=== PATIENT | female | born 1980 | race Caucasian/White ===

== ENCOUNTER 2016-10-07 13:37 | Inpatient (IN) | payer OTHER ==
[~2016-10-07] VITALS: Ht 160 cm; Wt 100.9 kg
[~2016-10-07 13:37] MED LIST: /AMLO25TA PO; /DULO30CA OR; /HCTZ25TA PO; /HYDR1TAB PO; /OXCA30TA OR; ABIL10TA OR; ABIL15TA PO; ATARAX OR; BACT800T OR; DEPA500T OR; EFFE150C OR; EFFE75CA75 PO; HYDR10EL PO; KLON0.5T OR; KLON0.5T PO; KLON1TAB OR; LAMI25TA PO; LOPR50TA PO; PROZ20CA11 PO; REME15TA OR; RISP1TAB41 PO; RISP2TAB30 PO; SERO200T OR; TRAZ100T2 PO; TRIA2TA PO; VENL75TA2 PO; VIST25CA PO; ZOLO100T OR; saphris SL
[2016-10-07] MEDS ORDERED: NICOTINE 21MG/24HR 1 EA TRANSDERMAL As Ordered ONE (14:31)
[2016-10-07] MEDS ORDERED: LORazepam 1 MG TAB As Ordered ONE ×2 (14:41→19:25)
[2016-10-08] MEDS ORDERED: VENL150C43 PO (14:25)
--- NOTE | 2016-10-08 15:15 | EDDOCDS ---
Physician Documentation [facility] Name: Kiersten Reyes Age: 36 yrs Sex: Female : 1980 Arrival Date: 10/07/2016 Time: 13:37 Bed [facility] MD: Disposition: 10/08/16 12:35 Hospitalization ordered by Danny Tom for Inpatient Admission. Preliminary diagnosis is Major depressive disorder, recurrent. - Bed requested for M PSY. - Status is Inpatient Admission. pjf - Condition is Stable. Historical: - Allergies: no known allergies; - Home Meds: 1. venlafaxine 150 mg oral tr24 1 tab once daily XR 2. prazosin 5 mg Oral cap 1 cap nightly has not filled since may. pt states did not take every day - PMHx: PTSD; dissociative disorder; Depression; Anxiety; - PSHx: Tubal ligation; Cesearean Section; - Social history: Smoking status: Patient uses tobacco products, current every day smoker. Patient uses street drugs, marijuana, No barriers to communication noted, The patient speaks fluent [place], Speaks appropriately for age. - Family history: Not pertinent. - : The pt / caregiver states he / she is not on anticoagulants. Home medication list is obtained from the patient. - Exposure Risk Screening:: None identified. 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 3 in. (160.02 cm) (R); 14:24 Pulse Ox 97% on R/A; srm 19:34 BP 164 / 84; Pulse 74; Resp 18; Temp 97.4; Pulse Ox 96% ; Pain 0/10; ajs 10/08 05:38 BP 129 / 79; Pulse 77; Resp 18; Temp 97.8; Pulse Ox 96% on R/A; Pain 0/10; slm 14:24 BP 158 / 95; Pulse 79; Temp 97.7(O); Pulse Ox 100% on R/A; pjf 10/07 13:52 Body Mass Index 33.13 (84.82 kg, 160.02 cm) jrd MDM: 10/07 14:22 Pulse ox spot check ordered. br1 14:22 Nicotine Patch 21 mg/24 hr 1 applic Transdermal once ordered. br1 14:31 ETOH Ordered. EDMS 14:32 Consult PFS/PSA/Produce Department Manager ordered. br1 14:32 Consult PFS/PSA/Produce Department Manager: Patient's case requires discussion with on-call br1 Psychiatrist ordered. 14:32 PSA/PFS to call Nursing French Folder, to enter patient data on [place] Safe [place] if patient br1 involuntarily admitted or transferred for SI or HI ordered. 14:32 Confirm accurate psychiatric medication list and times of last dosage ordered. br1 14:32 Detain Pt Until Medically/PFS Cleared ordered. br1 14:34 PSA/PFS to call Nursing French Folder, to enter patient data [place] Safe [place] if patient dsf involuntarily admitted or transferred for SI or HI complete. 14:34 Consult PFS/PSA/Produce Department Manager: Patient's case requires discussion with on-call dsf Psychiatrist complete. 14:34 Consult PFS/PSA/Produce Department Manager complete. dsf 14:40 LORazepam 1 mg PO once; prn anxiety ordered. br1 15:18 ETOH Reviewed. br1 15:19 Consult PFS/PSA/Socail Worker: Cleared medically for eval ordered. br1 15:19 Financial registration complete. gjb 15:25 [facility] Payment Agreement was scanned into [employer]ust[employer] and attached to record. gjb 15:40 Consult PFS/PSA/Socail Worker: Cleared medically for eval complete. ml4 16:25 REGULAR DIET PLASTIC WAGNER+DIET ordered. EDMS 17:19 REGULAR DIET ROOM SERVICE ED+DIET ordered. EDMS 17:56 [facility] Legal paperwork was scanned into [employer] and attached to record. ml4 19:21 LORazepam 1 mg PO once; prn anxiety ordered. br1 10/08 04:25 REGULAR DIET PLASTIC WAGNER+DIET ordered. EDMS 11:09 REGULAR DIET PLASTIC WAGNER+DIET ordered. EDMS 14:18 Ad[facility]: ordered. EDMS 14:20 [facility] Legal paperwork was scanned into [employer] and attached to record. ml4 Administered Medications: 10/07 14:36 Drug: Nicotine 1 applic [nicotine 21 mg/24 hr daily transdermal patch (1 patches)] dsf Route: Transdermal; Site: left upper arm; 14:47 Drug: LORazepam 1 mg [lorazepam 1 mg tablet (1 tabs)] Route: PO; dsf 15:47 Follow up: Response: Anxiety is improved dsf 19:27 Drug: LORazepam 1 mg [lorazepam 1 mg tablet (1 tabs)] Route: PO; ka4 Signatures: Dispatcher [employer] EDMS PareshZeeshan medina, Security Aide [employer] Adeline Vilchis, PSA PSA ml4 Emile Castañeda MD MD br1 Alekasndra HookerRN RN dsf Candi Gibbons RN RN [email or web address] Bridgette Preciado Kodie LPN ka4 The chart was reviewed and I authenticate all verbal orders and agree with the evaluation and treatment provided.Attachments: 15:25 [facility] Payment Agreement rich [place]
--- NOTE | 2016-10-08 15:15 | EDDOCDS ---
Nurse's Notes [facility] Name: Kiersten Reyes Age: 36 yrs Sex: Female : 1980 Arrival Date: 10/07/2016 Time: 13:37 Bed [facility] MD: Diagnosis: Major depressive disorder, recurrent Presentation: 10/07 13:53 Presenting complaint: Patient states: sent from [facility] for evaluation. Pt dsf states before Xmas she took a bottle of prazosin to kill herself before Xmas. pt states her TLC worker told her to go to the hospital. Pt states she does have SI with a plan to overdose. Pt does have a HX of suicide attempts in the past last admission to Mental Health was 2 years ago. Pt denies HI. Mental Health Triage Level: Level 2: The patient displays active suicidal ideations. Suicide/Homicide risk assessment- The patient admits to and/or has been reported to be having suicidal ideations. The patient reports that he/she has not been admitted to an inpatient mental health facility in the last 30 days. The patient reports that he/she does not have a recent or current history of substance abuse. The patient reports that he/she has a prior history of suicide attempt and/or organized plan. The patient reports that he/she has not experienced a significant life altering event in the last 30 days. The patient reports that he/she has adequate social support. The patient reports he/she has no significant chronic medical condition(s). Status: Patient is not a service cashier or dependent. Transition of care: patient was received from [facility]. 13:53 Acuity: TIMMY Level 3 dsf 13:53 Method Of Arrival: Ambulance dsf 18:10 Adult Sepsis Screening: The patient does not have new or worsening altered mentation. dsf Patient's respiratory rate is less than 22. Systolic blood pressure is greater than 100. Patient has a qSOFA score of 0- Negative Sepsis Screen. Triage Assessment: 13:59 General: Appears in no apparent distress, comfortable, Behavior is appropriate for age, dsf cooperative. Pain: Denies pain. HIV screening NA for this visit Offered previously. The patient is triaged at the bedside. See Assessment in Nurses Notes section of ED record. Neurological: Level of Consciousness is awake, alert. Cardiovascular: Capillary refill < 3 seconds. Respiratory: Airway is patent Respiratory effort is even, unlabored, Respiratory pattern is regular, symmetrical. Derm: Skin is pink, warm & dry. SERVICE DESK LEAD: 13:59 LMP 09/29/2016 dsf Historical: - Allergies: no known allergies; - Home Meds: 1. venlafaxine 150 mg oral tr24 1 tab once daily XR 2. prazosin 5 mg Oral cap 1 cap nightly has not filled since may. pt states did not take every day - PMHx: PTSD; dissociative disorder; Depression; Anxiety; - PSHx: Tubal ligation; Cesearean Section; - Social history: Smoking status: Patient uses tobacco products, current every day smoker. Patient uses street drugs, marijuana, No barriers to communication noted, The patient speaks fluent Portuguese, Speaks appropriately for age. - Family history: Not pertinent. - : The pt / caregiver states he / she is not on anticoagulants. Home medication list is obtained from the patient. - Exposure Risk Screening:: None identified. Screenin:09 Screening information is obtained from the patient. Fall risk: No risks identified. dsf Assistance ADL's: requires no assistance with activities of daily living. Abuse/DV Screen: The patient / caregiver reports he/she is: not in a situation that causes fear, pain or injury. Nutritional screening: No deficits noted. Advance Directives: Currently, there is no health care proxy. home support is adequate. Assessment: 14:00 General: see triage assessment . dsf 14:35 General: PFS Harrison in talking with patient . dsf 14:47 General: pt anxious and upset that there is no bed. Pt states she was told by [facility] that dsf she was promised a bed. . 15:19 General: Appears in no apparent distress, comfortable, watching TV . Pain: Denies pain. dsf Neurological: Level of Consciousness is awake, alert. Cardiovascular: Capillary refill < 3 seconds. Respiratory: Airway is patent Respiratory effort is even, unlabored, Respiratory pattern is regular, symmetrical. 16:19 Adult Sepsis Screening: The patient does not have new or worsening altered mentation. dsf Patient's respiratory rate is less than 22. Systolic blood pressure is greater than 100. Patient has a qSOFA score of 0- Negative Sepsis Screen. General: Appears in no apparent distress, comfortable, Behavior is appropriate for age, cooperative. Pain: Denies pain. Neurological: Level of Consciousness is awake, alert. Cardiovascular: Capillary refill < 3 seconds. Respiratory: Airway is patent Respiratory effort is even, unlabored, Respiratory pattern is regular, symmetrical. Derm: Skin is pink, warm & dry. old healing superficial cuts to bilateral forearms. 17:18 General: Appears in no apparent distress, comfortable, Behavior is appropriate for age, dsf cooperative. Neurological: Level of Consciousness is awake, alert. Cardiovascular: Capillary refill < 3 seconds. Respiratory: Airway is patent Respiratory effort is even, unlabored, Respiratory pattern is regular, symmetrical. Derm: Skin is pink, warm & dry. old healing superficial cuts to bilateral forearm. 18:05 Adult Sepsis Screening: The patient does not have new or worsening altered mentation. dsf Patient's respiratory rate is less than 22. Systolic blood pressure is greater than 100. Patient has a qSOFA score of 0- Negative Sepsis Screen. General: Appears in no apparent distress, Behavior is appropriate for age, cooperative. Pain: Denies pain. Neurological: Level of Consciousness is awake, alert. Cardiovascular: Capillary refill < 3 seconds. Respiratory: Airway is patent Respiratory effort is even, unlabored, Respiratory pattern is regular, symmetrical. Derm: Skin is pink, warm & dry. old healing superficial cuts to bilateral forearms. 19:08 General: Appears in no apparent distress, comfortable, Behavior is appropriate for age, ka4 cooperative, quiet. General: patient supine on stretcher. sitter observing . Respiratory: Airway is patent Respiratory effort is even, unlabored, Respiratory pattern is regular, symmetrical. 19:10 Adult Sepsis Screening: The patient does not have new or worsening altered mentation. dsf Patient's respiratory rate is less than 22. Systolic blood pressure is greater than 100. Patient has a qSOFA score of 0- Negative Sepsis Screen. General: Appears in no apparent distress, Behavior is appropriate for age, cooperative. Pain: Denies pain. Neurological: Level of Consciousness is awake, alert. Cardiovascular: Capillary refill < 3 seconds. Respiratory: Airway is patent Respiratory effort is even, unlabored, Respiratory pattern is regular, symmetrical. Derm: Skin is pink, warm & dry. 20:24 General: Appears in no apparent distress, comfortable, Behavior is cooperative. slm General: resting on stretcher security observing . Respiratory: Airway is patent Respiratory effort is even, unlabored. 21:15 General: Appears in no apparent distress, comfortable, Behavior is cooperative. slm General: resting on stretcher security observing . Respiratory: Airway is patent Respiratory effort is even, unlabored. 22:00 General: Appears in no apparent distress, comfortable, Behavior is anxious. General: pt slm requesting meds for sleep security observing . Respiratory: Airway is patent Respiratory effort is even, unlabored, Respiratory pattern is regular. 23:04 General: Appears in no apparent distress, Behavior is cooperative, quiet. General: pt slm resting on stretcher watching a movie security observing safety maintained . Respiratory: Airway is patent Respiratory effort is even, unlabored. 10/08 00:28 General: Appears in no apparent distress, comfortable, Behavior is quiet. General: pt slm resting on stretcher watching a movie at this time security observing . Respiratory: Airway is patent Respiratory effort is even, unlabored, Respiratory pattern is regular. 01:41 General: Appears in no apparent distress, comfortable, Behavior is cooperative. slm General: laying on stretcher watching a movie security observing . Respiratory: No deficits noted. 02:19 General: Appears in no apparent distress, comfortable, Behavior is appropriate for age, slm quiet. General: resting on stretcher security observing . Respiratory: Airway is patent Respiratory effort is even, unlabored. 02:54 General: Appears in no apparent distress, Pt asleep at rounds, no apparent distress, sls1 security observing, will continue to monitor.. Respiratory: Airway is patent Respiratory effort is even, unlabored, Respiratory pattern is regular, symmetrical. 03:53 General: Appears in no apparent distress, comfortable, to be sleeping. Behavior is slm quiet. General: security observing. Respiratory: Airway is patent Respiratory effort is even, unlabored. Derm: Skin is pink, warm & dry. 05:05 General: Appears in no apparent distress, comfortable, to be sleeping. Behavior is slm quiet. General: security observing . Respiratory: Airway is patent Respiratory effort is even, unlabored. 05:37 General: Appears in no apparent distress, comfortable, Behavior is appropriate for age, slm cooperative. General: resting on stretcher denies needs security observing . Pain: Denies pain. Neurological: Level of Consciousness is awake, alert, obeys commands. Respiratory: No deficits noted. Derm: Skin is pink, warm & dry. 06:18 General: Appears in no apparent distress, comfortable, Behavior is cooperative. slm General: resting on stretcher security observing . Respiratory: Airway is patent Respiratory effort is even, unlabored, Respiratory pattern is regular. 07:13 General: Appears in no apparent distress, comfortable, Behavior is appropriate for age, slm cooperative. General: security observing breakfast tray provided . Respiratory: Airway is patent Respiratory effort is even, unlabored. 08:45 General: Appears in no apparent distress, comfortable, Behavior is cooperative. mk4 Neurological: Level of Consciousness is awake, alert. 10:18 General: Appears in no apparent distress, comfortable, Behavior is cooperative, reading mk4 magazine in room shower offered. 11:38 General: Appears in no apparent distress, comfortable, Behavior is cooperative, reading mk4 magazine in room pleasant denies needs. 12:48 General: Appears in no apparent distress, comfortable, Behavior is cooperative, mk4 awaiting bed placement. 13:48 General: Appears in no apparent distress, comfortable, Behavior is cooperative, reading mk4 magazine , lunch provided denies needs. 14:35 General: Appears in no apparent distress, watching DVD conversing pleasantly with staff.[facility] 15:09 General: Appears in no apparent distress, comfortable, transferred to [facility]. 4 Mental Health Eval: 10/07 14:46 Mental health consult is initiated at 14:30. Status: The patient is not a ml4 service cashier or dependent. [facility] Behavioral Health: The patient is not an established patient of [facility] Behavioral Health. Referral Information: Evaluation referral is generated by LCSR, transfer from [facility] ED. The patient was referred for evaluation because thoughts of suicide with plan to OD. Pt attempted suicide on Sep 24, 2016 by OD on Prazosin, along with self-mutilation behavior to both forearms with razor blade. Pt continues to express SI with plan to OD. Subjective: The patients chief complaint is pt states, "I am pissed that I'm still alive and I don't want to be on this earth any longer." Pt reports suffering from suicidal thoughts for the past 2 wks due to command AH. Admits attempting suicide on Sep 24 by OD on entire bottle of Prazosin, along with self mutilation and was distressed when she awoke. Additionally, she reports suffering from command AH and appears internally pre-occupied during interview. Pt states, "the voices are telling me to hurry up and do it really quick and I can't get them to stop talking." Pt denies any specific stressor triggering her suicidal thoughts and suicide attempt. She does have a significant mental health hx, including numerous suicide attempts. Pt continues to voice SI with plan to OD . Delusions are denied. Patient's mood is angry, anxious, depressed, irritable, Auditory Hallucinations are reported by the patient. Command hallucinations are reported by the patient. Mental Health history: post-traumatic stress disorder, self -mutilation, sleep disturbance, Mental Health Admissions: Numerous hospitalizations, last transferred to [facility]) on 11/29/15 following a suicide attempt(Self-mutilation) Current Outpatient Mental Health Services: Therapist / Agency: Shila, Behavioral Health and [facility] and [facility] . Randa Maria, Behavioral Health and Wellness in [facility] . Current living environment is Family / Home Support: lives with elizabeth and his 11 year old daughter. 11 year old was not present when pt attempted suicide by OD. Patient presents to Emergency Department with the following symptoms within the past 2 weeks: agitation, anger, anxiety, decreased appetite, depressed mood, feelings of helplessness/hopelessness, Command AH to kill self . poor concentration, Patient has mutilated themselves by cutting their right arm and left arm sleep disturbance - insomnia, suicidal ideation with plan for pills. Substance abuse: Pt denies. Mental status exam: Patients appearance is unkempt, Patient's behavior is bizarre, Speech is rapid. Affect is labile. Mood is anxious. Hallucinations are command with plan to OD . Appetite is poor. Memory is good. Energy level is normal. Content of thought is depressive. due to on-going suicidal thoughts Thought process is intact. Cognitive level is oriented to person, place, time and situation Patient's insight is poor. Judgement is poor. Rapport with interviewer is good. Suicidal Ideation present with a plan to kill self by pills. Homicidal ideation is denied. Disposition: Medically cleared for disposition by Emile Castañeda MD Psychiatric Consult is performed by phone with Dr Danny Tom The patient is to be transferred to accepting facility. [facility] Admission Criteria: The patient has had a suicide attempt in the recent past. as described above . The patient is experiencing suicidal ideation. The patient displays self-mutilative behavior. The patient requires continuous observation and/or control to protect self, others or property. The patient's care requires a multi-modal treatment plan under close supervision and coordination due to the complexity and severity of the patient's symptoms. The patient requires administration and monitoring of psychoactive medications by skilled medical providers due to the side effects of the psychoactive medications or significant dosage adjustments. Legal Status: Patient's legal status will be [facility] admission: 9.37. [place] Safe Act: [place] Safe Act is applicable to this patient. The patient poses a risk to self or other and the Nursing Handbag Finisher has been notified. He/She will enter the patient's data. DSM-V Differential Diagnosis: Major Depressive Disorder severe (F33.2) With psychotic features (F32.3). 16:06 Narrative: [facility] has beds available, however their ED is unable to accommodate due to ml4 high volume. PSA is directed to contact them later tonight if a bed is not found. 17:25 Narrative: Pt's chart faxed to [facility] for review, awaiting a reply. Confirmed ml4 receipt at [facility] [place], [facility] W) awaiting possible acceptance.... 18:07 Narrative: Pt is accepted to [facility] [place], 5 W). ml4 21:19 Narrative: Due to the dangerous weather conditions, [facility] is unable to transport at this ml4 time. oracle fusion consultant \\T\\ [facility] and is directing PSA to re-present the pt in the am with the transfer center. 10/08 09:26 Narrative:. ca 11:50 Legal Status: Patient's legal status will be Emergency admission: 39. Awaiting: ml4 transfer to [facility]. 13:52 Insurance Pre-Certification: Aminata Penny at [facility]. Pt is approved for 10/08 ml4 -10/12 with review due on 10/12/16 with Ursula([phone], [phone]). Pending Auth# [id number] was given due to being unaware if pt had a bed on [facility], however PSA left a message on Ursula's confidential voicemail. . Vital Signs: 10/07 13:52 BP 141 / 80 RA Sitting (auto/reg); Pulse 77; Resp 18; Temp 97.7(O); Weight 84.82 kg jrd (R); Height 5 ft. 3 in. (160.02 cm) (R); 14:24 Pulse Ox 97% on R/A; srm 19:34 BP 164 / 84; Pulse 74; Resp 18; Temp 97.4; Pulse Ox 96% ; Pain 0/10; ajs 01 05:38 BP 129 / 79; Pulse 77; Resp 18; Temp 97.8; Pulse Ox 96% on R/A; Pain 0/10; slm 14:24 BP 158 / 95; Pulse 79; Temp 97.7(O); Pulse Ox 100% on R/A; pjf 10/07 13:52 Body Mass Index 33.13 (84.82 kg, 160.02 cm) jrd Vitals: 10/07 13:59 Log In Time N/A - ambulance arrival. dsf ED Course: 13:39 Patient visited by Darren Melton Reg. lg 13:39 Patient moved to Waiting lg 13:40 Patient moved to I7 / mk4 13:42 Patient visited by Noé Cohen PCA. jrd 13:52 Patient visited by Noé Cohen PCA. jrd 13:57 Triage Initiated dsf 13:58 Emile Castañeda MD is Attending Physician. br1 14:01 Patient visited by Noé Cohen PCA. jrd 14:14 Patient visited by Noé Cohen PCA. jrd 14:20 Psych Safety Check: Location: Visual Assessment:. lt1 14:22 Patient visited by Emile Castañeda MD. br1 14:47 ETOH Sent. dsf 15:20 Patient visited by Aleksandra Hooker RN. dsf 15:25 [facility] Payment Agreement was scanned into [employer] and attached to record. gjb 15:58 Patient moved to OBSERVATION br1 16:52 Patient visited by Noé Cohen PCA. jrd 17:18 Patient visited by Aleksandra Hooker RN. dsf 17:56 E Legal paperwork was scanned into [employer] and attached to record. ml4 18:07 Patient visited by Aleksandra Hooker RN. dsf 18:10 Patient visited by Aleksandra Hooker RN. dsf 18:10 The patient / caregiver is instructed regarding the plan of care and ED course. dsf 18:10 No IV's were initiated during this patient's visit. No procedures done that require dsf assistance. 19:09 Patient visited by Tena Gloria LPN. ka4 19:25 Patient moved to [facility] dsf 19:31 Patient visited by Elkin Barros. mas 19:34 Patient visited by Malika Madison. ajs 19:45 Patient visited by Elkin Barros. mas 20:00 Patient visited by Elkin Barros. mas 20:15 Patient visited by Elkin Barros. mas 20:24 Heather Davila LPN is Primary Nurse. slm 20:30 Patient visited by Elkin Barros. mas 20:45 Patient visited by Elkin Barros. mas 20:59 Patient visited by Cherise Medrano, CABRERA. cln 21:00 Patient visited by Elkin Barros. mas 21:15 Patient visited by Elkin Barros. mas 21:16 Patient visited by Heather Davila LPN. slm 21:31 Patient visited by Elkin Barros. mas 21:49 Patient visited by Elkin Barros. mas 22:00 Patient visited by Elkin Barros. mas 22:15 Patient visited by Elkin Barros. mas 22:31 Patient visited by Elkin Barros. mas 22:45 Patient visited by Elkin Barros. mas 22:45 Patient visited by Heather Davila LPN. slm 23:01 Patient visited by Elkin Barros. mas 23:05 Patient visited by Heather Davila LPN. slm 23:15 Patient visited by Elkin Barros. mas 23:30 Patient visited by Elkin Barros. mas 10/08 00:05 Patient visited by Elkin Barros. mas 00:26 Patient visited by Elkin Barros. mas 00:28 Patient visited by Heather Davila LPN. slm 00:31 Patient visited by Elkin Barros. mas 00:45 Patient visited by Elkin Barros. mas 01:01 Patient visited by Elkin Barros. mas 01:16 Patient visited by Elkin Barros. mas 01:30 Patient visited by Elkin Barros. mas 01:42 Patient visited by Heather Davila LPN. slm 01:45 Patient visited by Elkin Barros. mas 02:00 Patient visited by Elkin Barros. mas 02:15 Patient visited by Elkin Barros. mas 02:30 Patient visited by Elkin Barros. mas 02:45 Patient visited by Elkin Barros. mas 02:55 Patient visited by Dafne Marmolejo RN. sls1 03:00 Patient visited by Elkin Barros. mas 03:15 Patient visited by Elkin Barros. mas 03:54 Patient visited by Heather Davila LPN. slm 04:04 Patient visited by Elkin Barros. mas 04:15 Patient visited by Heather Davila LPN. slm 04:44 Patient visited by Elkin Barros. mas 04:44 Patient visited by Elkin Barros. mas 05:01 Patient visited by Elkin Barros. mas 05:05 Patient visited by Heather Davila LPN. slm 05:15 Patient visited by Elkin Barros. mas 05:38 Patient visited by Heather Davila LPN. slm 05:39 Patient visited by Elkin Barros. mas 05:45 Patient visited by Elkin Barros. mas 06:00 Patient visited by Elkin Barros. mas 06:15 Patient visited by Elkin Barros. mas 06:19 Patient visited by Heather Davila LPN. slm 06:30 Patient visited by Elkin Barros. mas 06:45 Patient visited by Elkin Barros. mas 07:05 Patient visited by Elkin Barros. mas 07:09 Primary Nurse role handed off by Heather Davila LPN mcp 07:12 Heather Davila LPN is Primary Nurse. slm 07:13 Patient visited by Heather Davila LPN. slm 07:23 Patient visited by Zeeshan Hamm Security Aide. pjf 07:36 Patient visited by Ferendzo, Zeeshan, Security Aide. pjf 07:45 Patient visited by Zeeshan Hamm Security Aide. pjf 08:06 Patient visited by Zeeshan Hamm Security Aide. pjf 08:29 Patient visited by Zeeshan Hamm Security Aide. pjf 08:41 Patient visited by Zeeshan Hamm Security Aide. pjf 09:39 Patient visited by Zeeshan Hamm Security Aide. pjf 09:39 Patient visited by Zeeshan Hamm Security Aide. pjf 10:01 Patient visited by Zeeshan Hamm Security Aide. pjf 10:22 Patient visited by Zeeshan Hamm Security Aide. pjf 10:35 Patient visited by Zeeshan Hamm Security Aide. pjf 10:54 Patient visited by Zeeshan Hamm Security Aide. pjf 11:05 Patient visited by Zeeshan Hamm Security Aidrk. pjf 11:19 Patient visited by Zeeshan Hamm Security Aide. pjf 11:39 Patient visited by Zeeshan Hamm Security Aidrk. pjf 11:41 Patient visited by Zeeshan Hamm Security Aidrk. pjf 11:48 Patient visited by Zeeshan Hamm Security Aidrk. pjf 12:08 Patient visited by Zeeshan Hamm Security Aide. pjf 12:18 Patient visited by Zeeshan Hamm Security Aide. pjf 12:34 Patient visited by Wil Washington. rn1 12:34 Danny Tom is Hospitalizing Provider. mk4 12:45 Patient visited by Wil Washington. rn1 13:00 Patient visited by Wil Washington. rn1 13:36 Patient visited by Zeeshan Hamm Security Aide. pjf 13:50 Patient visited by Zeeshan Hamm Security Aide. pjf 14:19 Patient visited by Zeeshan Hamm Security Aide. pjf 14:20 E Legal paperwork was scanned into [employer] and attached to record. ml4 14:37 Patient visited by Zeeshan Hamm Security Aide. pjf Administered Medications: 10/07 14:36 Drug: Nicotine 1 applic [nicotine 21 mg/24 hr daily transdermal patch (1 patches)] dsf Route: Transdermal; Site: left upper arm; 14:47 Drug: LORazepam 1 mg [lorazepam 1 mg tablet (1 tabs)] Route: PO; dsf 15:47 Follow up: Response: Anxiety is improved f 19:27 Drug: LORazepam 1 mg [lorazepam 1 mg tablet (1 tabs)] Route: PO; ka4 Attachments: 10/08 14:20 MHE Legal paperwork ml4 Order Results: Lab Order: ETOH; SPEC'M 10/07/16 14:43 Test: ETHYL ALCOHOL (ETHANOL); Value: < 0.003; Range: 0.000-0.010; Units: %; Status: F Outcome: 10/07 17:47 ER care complete, transfer ordered by Provider. br1 18:08 Admission hand-off: Report called to Nati Benitez RN %w at [facility]. 18:10 No special radiology studies were completed. f 19:10 Discharge Assessment: Patient awake, alert and oriented x 3. No cognitive and/or f functional deficits noted. Patient verbalized understanding of disposition instructions. patient administered narcotics - no. 19:11 Property :Personal belongings accompany Pt. [facility] [place] 10/08 12:35 Decision to Hospitalize by Provider. mk4 12:48 The following High Risk Discharge criteria are identified: None. Admitted to Psych. 4 14:35 Condition: stable. 4 15:15 Patient left the ED. f Signatures: Lina Serna, RN RN [facility] Ursula Garcia, RN RN Tawnya Gerber, PSA PSA ca Ganty, LoriLee, Reg Reg lg Ferendzo, Zeeshan, Security Aide [facility] Adeline Vilchis, PSA PSA ml4 Emile Castañeda MD MD br1 Elkin Barros Desiree,RN RN [facility], [place] Malika Madison Shannon RN RN sls1 Heather Davila LPN LPN slm King, Margaret, RN RN Tena Sewell LPN LPN ka4 Noé Cohen, CUFF SETTER CUFF SETTER Wil [place] rn1 Bridgette Preciado Leanna lt1 Cherise Medrano, CUFF SETTER CUFF SETTER cln Corrections: (The following items were deleted from the chart) 10/07 17:27 16:29 Transition of care to Pt's chart faxed to [facility]) for ml4 review, awaiting a reply[facility] 18: 16:19 Derm: Skin is pink, warm & dry. [facility] 18:07 17:18 Derm: Skin is pink, warm & dry. dsf dsf 18:07 18:05 Derm: Skin is pink, warm & dry. [facility] 10/08 11:17 10/07 14:46 Referral Information: Evaluation referral is generated by [facility], transfer ml4 from [facility] ED. The patient was referred for evaluation because thoughts of suicide with plan to OD. Pt attempted suicide on Sep 24, 2016 by OD on Prazosin, along with self-mutilation behavior to both forearms with razor blade. Pt continues to express SI with plan to OD. [facility] 10/08 12:49 12:34 Andres Santana is Hospitalizing Provider. [place] [id number] 12:49 12:34 Hospitalizing Provider role handed off by Andres Santana [place] [address] 13:17 10/07 14:46 Mental status exam: Patients appearance is unkempt, Patient's behavior is ml4 bizarre, Speech is normal. Affect is labile. Mood is anxious. Hallucinations are command with plan to OD . Appetite is poor. Memory is good. Energy level is normal. Content of thought is grandiose. due to on-going thoughts of suicide with plan. Thought process is intact. Cognitive level is oriented to person, place, time and situation Patient's insight is poor. Judgement is poor. Rapport with interviewer is good. Suicidal Ideation present with a plan to kill self by pills. Homicidal ideation is denied. [facility] 10/08 13:23 10/07 14:46 DSM-V Differential Diagnosis: Major Depressive Disorder severe (F33.2) [place] [id number] 10/08 13:28 10/07 14:46 Mental status exam: Patients appearance is unkempt, Patient's behavior is ml4 bizarre, Speech is normal. Affect is labile. Mood is anxious. Hallucinations are command with plan to OD . Appetite is poor. Memory is good. Energy level is normal. Content of thought is depressive. due to on-going suicidal thoughts Thought process is intact. Cognitive level is oriented to person, place, time and situation Patient's insight is poor. Judgement is poor. Rapport with interviewer is good. Suicidal Ideation present with a plan to kill self by pills. Homicidal ideation is denied. ml4 MTDD
[2016-10-08 15:40] VITALS: BP 142/96
[2016-10-08] MEDS ORDERED: MOM 30ML SUSPENSION UDC PO PRN (17:45)
[2016-10-08] MEDS ORDERED: MAALOX 30 ML SUSP *UDC PO PRN (17:45)
[2016-10-08] MEDS ORDERED: NICOTINE 21MG/24HR 1 EA TRANSDERMAL TD ONE (19:00)
[2016-10-08] MEDS: risperiDONE 1 MG TAB PO SCH (20:24)
[2016-10-08] MEDS: traZODone 50 MG TAB PO PRN (20:24)
[2016-10-08] MEDS: LORazepam 1 MG TAB PO PRN (21:52)
[2016-10-09 06:27] VITALS: BP 115/66
[2016-10-09] MEDS: LORazepam 1 MG TAB PO PRN ×2 (09:09→15:56)
[2016-10-09] MEDS: risperiDONE 1 MG TAB PO SCH ×2 (09:09→13:01)
[2016-10-09] MEDS: NICOTINE 21MG/24HR 1 EA TRANSDERMAL TD SCH (09:09)
--- NOTE | 2016-10-09 11:17 | HPEPDOC ---
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 ATTENDING: Dr. oYan Sims HPI: 36yoF admitted to [facility] for MDD, being medically examined today. No acute medical complaints today. Denies any fevers, chills, weakness, fatigue, SANTANA, CP, SOB, cough, palpitations, abdominal pain, N/V/D or changes in bowel or bladder habits. PMHx: PTSD Anxiety/depression Bipolar disorder Dissociative disorder History of substance use History of alcohol use PSHX: Tubal ligation SOCHX: Resides in: [place] Marital Status: (suicide-previous ). Currently engaged. Kids: 6 children, 3 children live with family members. 3 children in [place]. Employment: Unemployed Tobacco use: One pack per day ETOH: States no alcohol for the past 2 years, previously completed rehabilitation program Illicit Drugs: History of opiates. States currently uses marijuana twice weekly. IV Drug Use: Denies Tattoos done unprofessionally: Denies FAMHX: Mother: Alive, patient states history of mental illness Father: Alive, patient states history of bipolar disorder Siblings: Alive, patient states 2 sisters history of bipolar disorder Children: 3 children Alive, well, living with other family members. Unexpected deaths due to medical reasons: None. ROS: As noted in HPI, otherwise 11pt ROS of systems reviewed and remarkable only for LMP 09/29/16. PE: GEN: 36yoF, appears stated age. Well-nourished, well developed. No acute distress. Alert and oriented x 3. Pleasant, interactive. HEENT: Normocephalic, atraumatic. Pupils are equal, round, and reactive to light. Extraocular movements are intact. No nystagmus appreciated. Sclera are nonicteric. Conjunctiva without injection. Nose midline. Nasal turbinates without bogginess. EACs both patent BL. TMs both visualized and bowers with good cone of light, no bulging or erythema. No facial asymmetry. Moist mucous membranes. Dentition fair. Pharynx pink and moist, no cobblestoning. Neck supple , trachea midline. No lymphadenopathy or thyromegaly appreciated. CHEST: Regular rate and rhythm, +S1, +S2 LUNGS: Clear to auscultation bilaterally. No wheezes, rales, or rhonchi. Breathing appears symmetric and easy. Patient is speaking in full sentences. No accessory muscle use. ABD: Round, soft, non-tender, non-distended. +Bowel sounds throughout. No rebound or guarding. No costovertebral angle tenderness. EXT: Pulses 2+ bilaterally dorsalis pedis and radial. No lower extremity edema appreciated. SKIN: [place], dry, warm. Capillary refill <2sec. No rashes. Patient has superficial lacerations on bilateral forearms. They appear to be healing and patient states they're approximately 1 week old. There are no signs of infection. No drainage. No erythema. NEURO: Alert and oriented x 3. Cranial nerves III-XII are intact. No focal deficits appreciated. EKG: [facility] NSR 78. [facility] Labs WBC 11.1 Hgb 14.6 Hct 43.6 Plt 367 Na 140 K 3.6 Cl 106 BUN 6 SCr 0.6 Gluc 99 AST 17 ALT 16 HCG neg UA neg Toxicology remarkable for THC. TSH 1.19 A&P: 36yoF admitted to [facility] for MDD 1. Psych. Plan per Psychiatry. EKG on file. 2. Nicotine dependence. Patch available. 3. Superficial lacerations forearms. Keep areas clean and dry. No signs of infection. Monitor. 4. Follow up with PCP on discharge. 5. Substance use. Per psychiatry. Vital Signs Vital Signs Label Value Date Time Patient Temperature 97.6 degrees F 10/09/16 0627 Temperature Source Tympanic 10/09/16 0627 Pulse 65 10/09/16 0627 Respiratory Rate 18 bpm 10/09/16 0627 Blood Pressure Assessment 115/66 (82) 10/09/16 0627 Laboratory Data Labs 24H Item Value Date Time Ethyl Alcohol Level < 0.003 % 10/07/16 1443 Home Medications Scheduled Venlafaxine Hydrochloride (Venlafaxine HCl ER) 150 Mg Cap 150 MG PO DAILY Allergies Coded Allergies: Bee Venom (Verified Allergy, Severe, SOB, 01/06/13) No Known Drug Allergy (Verified Allergy, Unknown, 01/06/13) Alba Flaherty Oct 09, 2016 11:17
[2016-10-09] MEDS: HALOPERIDOL 5 MG TAB PO PRN (13:02)
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
[2016-10-09 18:19] VITALS: BP 139/92
[2016-10-09] MEDS: QUEtiapine FUMARATE 50 MG TAB PO SCH (21:57)
[2016-10-09] MEDS: PALIPERIDONE 3 MG ER TAB (INVEGA) PO SCH (21:57)
[2016-10-09] MEDS: traZODone 50 MG TAB PO PRN (21:57)
[2016-10-09] MEDS: GABAPENTIN 100 MG CAP PO SCH (21:57)
[2016-10-10 06:43] VITALS: BP 118/61
[2016-10-10] MEDS: NICOTINE 21MG/24HR 1 EA TRANSDERMAL TD SCH (08:24)
[2016-10-10] MEDS ORDERED: INFLUENZA QUADRIVALENT PF VACCINE 0.5ML SYRINGE/VIAL (90686) IM ONE (09:00)
[2016-10-10] MEDS: LORazepam 1 MG TAB PO PRN ×2 (10:51→20:10)
--- NOTE | 2016-10-10 14:21 | IPN ---
DATE: 10/10/2016 TREATMENT: This is the 3rd day of inpatient admission for this patient: She is seen and her medications reviewed. She was admitted due to expressing suicidal thoughts, with reports that she ingested an overdose of prazosin tablets in order to kill herself. She also reported at the time that she was experiencing worsening depression and anxiety. The patient states that she is still very depressed, anxious, and feels she has multiple personalities. She does not think that most medications she has tried in the past have helped her in any way. She currently is receiving Invega 3 mg orally at bedtime, gabapentin 100 mg at bedtime, and quetiapine 50 mg orally at bedtime. OBSERVATION: Vital signs are stable. Blood pressure of 118/61, pulse 69, respirations 18, and temperature 97.4. She is noted to be dressed in [facility]. Her grooming is fair. No abnormal involuntary movement is noted. Her speech is soft, normal in volume, rate, and rhythm. Thought process is coherent and logical. No specific delusions are noted or ideas of reference. She describes her mood as severely depressed and anxious. Affect seems to be mood congruent. She denies homicidal ideation, however when asked about thoughts of suicide she was vague in her response and ambivalent as to whether she still plans to harm herself. She attributes part of her behavior to what she feels is multiple personalities in her. No medication related adverse events and no gross psychotic feature is evident. ASSESSMENT: The patient currently presents with features notable for histrionic and borderline personality traits. She seems to be quite impulsive, which is a notable risk in terms of engaging in self-harmful acts. PLAN: She will be continued on the current medications with ongoing reviews, with dosage adjustments as clinically indicated. She is encouraged to participate actively in therapeutic programs. CAR
--- NOTE | 2016-10-10 16:15 | EDDOCDS ---
Physician Documentation [facility] Name: Kiersten Reyes Age: 36 yrs Sex: Female : 1980 Arrival Date: 10/07/2016 Time: 13:37 Bed [facility] MD: Disposition: 10/08/16 12:35 Hospitalization ordered by Danny Tom for Inpatient Admission. Preliminary diagnosis is Major depressive disorder, recurrent. - Bed requested for M PSY. - Status is Inpatient Admission. pjf - Condition is Stable. Historical: - Allergies: no known allergies; - Home Meds: 1. venlafaxine 150 mg oral tr24 1 tab once daily XR 2. prazosin 5 mg Oral cap 1 cap nightly has not filled since may. pt states did not take every day - PMHx: PTSD; dissociative disorder; Depression; Anxiety; - PSHx: Tubal ligation; Cesearean Section; - Social history: Smoking status: Patient uses tobacco products, current every day smoker. Patient uses street drugs, marijuana, No barriers to communication noted, The patient speaks fluent Beninese, Speaks appropriately for age. - Family history: Not pertinent. - : The pt / caregiver states he / she is not on anticoagulants. Home medication list is obtained from the patient. - Exposure Risk Screening:: None identified. 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 3 in. (160.02 cm) (R); 14:24 Pulse Ox 97% on R/A; srm 19:34 BP 164 / 84; Pulse 74; Resp 18; Temp 97.4; Pulse Ox 96% ; Pain 0/10; ajs 10/08 05:38 BP 129 / 79; Pulse 77; Resp 18; Temp 97.8; Pulse Ox 96% on R/A; Pain 0/10; slm 14:24 BP 158 / 95; Pulse 79; Temp 97.7(O); Pulse Ox 100% on R/A; pjf 10/07 13:52 Body Mass Index 33.13 (84.82 kg, 160.02 cm) jrd MDM: 10/07 14:22 Pulse ox spot check ordered. br1 14:22 Nicotine Patch 21 mg/24 hr 1 applic Transdermal once ordered. br1 14:31 ETOH Ordered. EDMS 14:32 Consult PFS/PSA/Senior Clerk ordered. br1 14:32 Consult PFS/PSA/Senior Clerk: Patient's case requires discussion with on-call br1 Psychiatrist ordered. 14:32 PSA/PFS to call Nursing Gear Milling Machine Set Up Operator, to enter patient data on [place] Safe [place] if patient br1 involuntarily admitted or transferred for SI or HI ordered. 14:32 Confirm accurate psychiatric medication list and times of last dosage ordered. br1 14:32 Detain Pt Until Medically/PFS Cleared ordered. br1 14:34 PSA/PFS to call Nursing Gear Milling Machine Set Up Operator, to enter patient data on [place] if patient dsf involuntarily admitted or transferred for SI or HI complete. 14:34 Consult PFS/PSA/Senior Clerk: Patient's case requires discussion with on-call dsf Psychiatrist complete. 14:34 Consult PFS/PSA/Senior Clerk complete. dsf 14:40 LORazepam 1 mg PO once; prn anxiety ordered. br1 15:18 ETOH Reviewed. br1 15:19 Consult PFS/PSA/Socail Worker: Cleared medically for eval ordered. br1 15:19 Financial registration complete. gjb 15:25 [facility] Payment Agreement was scanned into [employer] and attached to record. gjb 15:40 Consult PFS/PSA/Socail Worker: Cleared medically for eval complete. ml4 16:25 REGULAR DIET PLASTIC WAGNER+DIET ordered. EDMS 17:19 REGULAR DIET ROOM SERVICE ED+DIET ordered. EDMS 17:56 [facility] Legal paperwork was scanned into [employer] and attached to record. ml4 19:21 LORazepam 1 mg PO once; prn anxiety ordered. br1 10/08 04:25 REGULAR DIET PLASTIC WAGNER+DIET ordered. EDMS 11:09 REGULAR DIET PLASTIC WAGNER+DIET ordered. EDMS 14:18 Admit to [facility]: ordered. EDMS 14:20 [facility] Legal paperwork was scanned into [employer] and attached to record. ml4 10/10 07:59 T-Sheet-- Draft Copy was scanned into [employer] and attached to record. gb Administered Medications: 10/07 14:36 Drug: Nicotine 1 applic [nicotine 21 mg/24 hr daily transdermal patch (1 patches)] dsf Route: Transdermal; Site: left upper arm; 14:47 Drug: LORazepam 1 mg [lorazepam 1 mg tablet (1 tabs)] Route: PO; dsf 15:47 Follow up: Response: Anxiety is improved dsf 19:27 Drug: LORazepam 1 mg [lorazepam 1 mg tablet (1 tabs)] Route: PO; ka4 Signatures: Dispatcher [employer] EDMS Katerin Guadalupe, Reg Reg gb Pareshadam, Zeeshan, Security Aide Securpjf Deng, Adeline, PSA PSA ml4 Emile Castañeda MD MD br1 Aleksandra HookerRN RN Candi Estrada RN RN [email or web address] Bridgette Preciado Kodie LPN ka4 The chart was reviewed and I authenticate all verbal orders and agree with the evaluation and treatment provided.Attachments: 15:25 [facility] Payment Agreement gjb 10/10 07:59 T-Sheet-- Draft Copy gb Chart Complete [place]
--- NOTE | 2016-10-10 16:16 | EDDOCDS ---
Physician Documentation [facility] Name: Kiersten Reyes Age: 36 yrs Sex: Female : 1980 Arrival Date: 10/07/2016 Time: 13:37 Bed [facility] MD: Disposition: 10/08/16 12:35 Hospitalization ordered by Danny Tom for Inpatient Admission. Preliminary diagnosis is Major depressive disorder, recurrent. - Bed requested for M PSY. - Status is Inpatient Admission. pjf - Condition is Stable. Historical: - Allergies: no known allergies; - Home Meds: 1. venlafaxine 150 mg oral tr24 1 tab once daily XR 2. prazosin 5 mg Oral cap 1 cap nightly has not filled since may. pt states did not take every day - PMHx: PTSD; dissociative disorder; Depression; Anxiety; - PSHx: Tubal ligation; Cesearean Section; - Social history: Smoking status: Patient uses tobacco products, current every day smoker. Patient uses street drugs, marijuana, No barriers to communication noted, The patient speaks fluent [place], Speaks appropriately for age. - Family history: Not pertinent. - : The pt / caregiver states he / she is not on anticoagulants. Home medication list is obtained from the patient. - Exposure Risk Screening:: None identified. UNDERWEAR HEMMER: 10/07 13:59 LMP 09/29/2016 dsf Vital Signs: 13:52 BP 141 / 80 RA Sitting (auto/reg); Pulse 77; Resp 18; Temp 97.7(O); Weight 84.82 kg / jrd 187 lbs (R); Height 5 ft. 3 in. (160.02 cm) (R); 14:24 Pulse Ox 97% on R/A; srm 19:34 BP 164 / 84; Pulse 74; Resp 18; Temp 97.4; Pulse Ox 96% ; Pain 0/10; ajs 10/08 05:38 BP 129 / 79; Pulse 77; Resp 18; Temp 97.8; Pulse Ox 96% on R/A; Pain 0/10; slm 14:24 BP 158 / 95; Pulse 79; Temp 97.7(O); Pulse Ox 100% on R/A; pjf 10/07 13:52 Body Mass Index 33.13 (84.82 kg, 160.02 cm) jrd MDM: 10/07 14:22 Pulse ox spot check ordered. br1 14:22 Nicotine Patch 21 mg/24 hr 1 applic Transdermal once ordered. br1 14:31 ETOH Ordered. EDMS 14:32 Consult PFS/PSA/Choir Singer ordered. br1 14:32 Consult PFS/PSA/Choir Singer: Patient's case requires discussion with on-call br1 Psychiatrist ordered. 14:32 PSA/PFS to call Nursing Manager Social Media, to enter patient data on [place] Safe [place] if patient br1 involuntarily admitted or transferred for SI or HI ordered. 14:32 Confirm accurate psychiatric medication list and times of last dosage ordered. br1 14:32 Detain Pt Until Medically/PFS Cleared ordered. br1 14:34 PSA/PFS to call Nursing Manager Social Media, to enter patient data [place] Safe [place] if patient dsf involuntarily admitted or transferred for SI or HI complete. 14:34 Consult PFS/PSA/Choir Singer: Patient's case requires discussion with on-call dsf Psychiatrist complete. 14:34 Consult PFS/PSA/Choir Singer complete. dsf 14:40 LORazepam 1 mg PO once; prn anxiety ordered. br1 15:18 ETOH Reviewed. br1 15:19 Consult PFS/PSA/Socail Worker: Cleared medically for eval ordered. br1 15:19 Financial registration complete. gjb 15:25 [facility] Payment Agreement was scanned into [employer] and attached to record. gjb 15:40 Consult PFS/PSA/Socail Worker: Cleared medically for eval complete. ml4 16:25 REGULAR DIET PLASTIC WAGNER+DIET ordered. EDMS 17:19 REGULAR DIET ROOM SERVICE ED+DIET ordered. EDMS 17:56 [facility] Legal paperwork was scanned into [employer] and attached to record. ml4 19:21 LORazepam 1 mg PO once; prn anxiety ordered. br1 10/08 04:25 REGULAR DIET PLASTIC WAGNER+DIET ordered. EDMS 11:09 REGULAR DIET PLASTIC WAGNER+DIET ordered. EDMS 14:18 Admit to [facility]: ordered. EDMS 14:20 [facility] Legal paperwork was scanned into [employer] and attached to record. ml4 10/10 07:59 T-Sheet-- Draft Copy was scanned into [employer] and attached to record. gb Administered Medications: 10/07 14:36 Drug: Nicotine 1 applic [nicotine 21 mg/24 hr daily transdermal patch (1 patches)] dsf Route: Transdermal; Site: left upper arm; 14:47 Drug: LORazepam 1 mg [lorazepam 1 mg tablet (1 tabs)] Route: PO; dsf 15:47 Follow up: Response: Anxiety is improved dsf 19:27 Drug: LORazepam 1 mg [lorazepam 1 mg tablet (1 tabs)] Route: PO; ka4 Signatures: Dispatcher [employer] EDMS Katerin Guadalupe, Reg Reg gb Pareshadam, Zeeshan, Security Aide Securpjf Deng, Adeline, PSA PSA ml4 Emile Castañeda MD MD br1 Aleksandra HookerRN RN Candi Estrada RN RN [email or web address] Bridgette Preciado Kodie LPN ka4 The chart was reviewed and I authenticate all verbal orders and agree with the evaluation and treatment provided.Attachments: 15:25 [facility] Payment Agreement gjb 10/10 07:59 T-Sheet-- Draft Copy gb Chart Complete [place]
--- NOTE | 2016-10-10 16:17 | EDDOCDS ---
Nurse's Notes [facility] Name: Kiersten Reyes Age: 36 yrs Sex: Female : 1980 Arrival Date: 10/07/2016 Time: 13:[address] [facility] MD: Diagnosis: Major depressive disorder, recurrent Presentation: 10/07 13:53 Presenting complaint: Patient states: sent from [facility] for evaluation. Pt dsf states before Xmas she took a bottle of prazosin to kill herself before Xmas. pt states her TLC worker told her to go to the hospital. Pt states she does have SI with a plan to overdose. Pt does have a HX of suicide attempts in the past last admission to Mental Health was 2 years ago. Pt denies HI. Mental Health Triage Level: Level 2: The patient displays active suicidal ideations. Suicide/Homicide risk assessment- The patient admits to and/or has been reported to be having suicidal ideations. The patient reports that he/she has not been admitted to an inpatient mental health facility in the last 30 days. The patient reports that he/she does not have a recent or current history of substance abuse. The patient reports that he/she has a prior history of suicide attempt and/or organized plan. The patient reports that he/she has not experienced a significant life altering event in the last 30 days. The patient reports that he/she has adequate social support. The patient reports he/she has no significant chronic medical condition(s). 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 Transition of care: patient was received from [facility]. 13:53 Acuity: TIMMY Level 3 dsf 13:53 Method Of Arrival: Ambulance dsf 18:10 Adult Sepsis Screening: The patient does not have new or worsening altered mentation. dsf Patient's respiratory rate is less than 22. Systolic blood pressure is greater than 100. Patient has a qSOFA score of 0- Negative Sepsis Screen. Triage Assessment: 13:59 General: Appears in no apparent distress, comfortable, Behavior is appropriate for age, dsf cooperative. Pain: Denies pain. HIV screening NA for this visit Offered previously. The patient is triaged at the bedside. See Assessment in Nurses Notes section of ED record. Neurological: Level of Consciousness is awake, alert. Cardiovascular: Capillary refill < 3 seconds. Respiratory: Airway is patent Respiratory effort is even, unlabored, Respiratory pattern is regular, symmetrical. Derm: Skin is pink, warm & dry. [employer]: 13:59 LMP 09/29/2016 dsf Historical: - Allergies: no known allergies; - Home Meds: 1. venlafaxine 150 mg oral tr24 1 tab once daily XR 2. prazosin 5 mg Oral cap 1 cap nightly has not filled since may. pt states did not take every day - PMHx: PTSD; dissociative disorder; Depression; Anxiety; - PSHx: Tubal ligation; Cesearean Section; - Social history: Smoking status: Patient uses tobacco products, current every day smoker. Patient uses street drugs, marijuana, No barriers to communication noted, The patient speaks fluent Trinidadian, Speaks appropriately for age. - Family history: Not pertinent. - : The pt / caregiver states he / she is not on anticoagulants. Home medication list is obtained from the patient. - Exposure Risk Screening:: None identified. Screenin:09 Screening information is obtained from the patient. Fall risk: No risks identified. dsf Assistance ADL's: requires no assistance with activities of daily living. Abuse/DV Screen: The patient / caregiver reports he/she is: not in a situation that causes fear, pain or injury. Nutritional screening: No deficits noted. Advance Directives: Currently, there is no health care proxy. home support is adequate. Assessment: 14:00 General: see triage assessment . dsf 14:35 General: PFS Harrison in talking with patient . dsf 14:47 General: pt anxious and upset that there is no bed. Pt states she was told by [facility] that dsf she was promised a bed. . 15:19 General: Appears in no apparent distress, comfortable, watching TV . Pain: Denies pain. dsf Neurological: Level of Consciousness is awake, alert. Cardiovascular: Capillary refill < 3 seconds. Respiratory: Airway is patent Respiratory effort is even, unlabored, Respiratory pattern is regular, symmetrical. 16:19 Adult Sepsis Screening: The patient does not have new or worsening altered mentation. dsf Patient's respiratory rate is less than 22. Systolic blood pressure is greater than 100. Patient has a qSOFA score of 0- Negative Sepsis Screen. General: Appears in no apparent distress, comfortable, Behavior is appropriate for age, cooperative. Pain: Denies pain. Neurological: Level of Consciousness is awake, alert. Cardiovascular: Capillary refill < 3 seconds. Respiratory: Airway is patent Respiratory effort is even, unlabored, Respiratory pattern is regular, symmetrical. Derm: Skin is pink, warm & dry. old healing superficial cuts to bilateral forearms. 17:18 General: Appears in no apparent distress, comfortable, Behavior is appropriate for age, dsf cooperative. Neurological: Level of Consciousness is awake, alert. Cardiovascular: Capillary refill < 3 seconds. Respiratory: Airway is patent Respiratory effort is even, unlabored, Respiratory pattern is regular, symmetrical. Derm: Skin is pink, warm & dry. old healing superficial cuts to bilateral forearm. 18:05 Adult Sepsis Screening: The patient does not have new or worsening altered mentation. dsf Patient's respiratory rate is less than 22. Systolic blood pressure is greater than 100. Patient has a qSOFA score of 0- Negative Sepsis Screen. General: Appears in no apparent distress, Behavior is appropriate for age, cooperative. Pain: Denies pain. Neurological: Level of Consciousness is awake, alert. Cardiovascular: Capillary refill < 3 seconds. Respiratory: Airway is patent Respiratory effort is even, unlabored, Respiratory pattern is regular, symmetrical. Derm: Skin is pink, warm & dry. old healing superficial cuts to bilateral forearms. 19:08 General: Appears in no apparent distress, comfortable, Behavior is appropriate for age, ka4 cooperative, quiet. General: patient supine on stretcher. sitter observing . Respiratory: Airway is patent Respiratory effort is even, unlabored, Respiratory pattern is regular, symmetrical. 19:10 Adult Sepsis Screening: The patient does not have new or worsening altered mentation. dsf Patient's respiratory rate is less than 22. Systolic blood pressure is greater than 100. Patient has a qSOFA score of 0- Negative Sepsis Screen. General: Appears in no apparent distress, Behavior is appropriate for age, cooperative. Pain: Denies pain. Neurological: Level of Consciousness is awake, alert. Cardiovascular: Capillary refill < 3 seconds. Respiratory: Airway is patent Respiratory effort is even, unlabored, Respiratory pattern is regular, symmetrical. Derm: Skin is pink, warm & dry. 20:24 General: Appears in no apparent distress, comfortable, Behavior is cooperative. slm General: resting on stretcher security observing . Respiratory: Airway is patent Respiratory effort is even, unlabored. 21:15 General: Appears in no apparent distress, comfortable, Behavior is cooperative. slm General: resting on stretcher security observing . Respiratory: Airway is patent Respiratory effort is even, unlabored. 22:00 General: Appears in no apparent distress, comfortable, Behavior is anxious. General: pt slm requesting meds for sleep security observing . Respiratory: Airway is patent Respiratory effort is even, unlabored, Respiratory pattern is regular. 23:04 General: Appears in no apparent distress, Behavior is cooperative, quiet. General: pt slm resting on stretcher watching a movie security observing safety maintained . Respiratory: Airway is patent Respiratory effort is even, unlabored. 10/08 00:28 General: Appears in no apparent distress, comfortable, Behavior is quiet. General: pt slm resting on stretcher watching a movie at this time security observing . Respiratory: Airway is patent Respiratory effort is even, unlabored, Respiratory pattern is regular. 01:41 General: Appears in no apparent distress, comfortable, Behavior is cooperative. slm General: laying on stretcher watching a movie security observing . Respiratory: No deficits noted. 02:19 General: Appears in no apparent distress, comfortable, Behavior is appropriate for age, slm quiet. General: resting on stretcher security observing . Respiratory: Airway is patent Respiratory effort is even, unlabored. 02:54 General: Appears in no apparent distress, Pt asleep at rounds, no apparent distress, sls1 security observing, will continue to monitor.. Respiratory: Airway is patent Respiratory effort is even, unlabored, Respiratory pattern is regular, symmetrical. 03:53 General: Appears in no apparent distress, comfortable, to be sleeping. Behavior is slm quiet. General: security observing. Respiratory: Airway is patent Respiratory effort is even, unlabored. Derm: Skin is pink, warm & dry. 05:05 General: Appears in no apparent distress, comfortable, to be sleeping. Behavior is slm quiet. General: security observing . Respiratory: Airway is patent Respiratory effort is even, unlabored. 05:37 General: Appears in no apparent distress, comfortable, Behavior is appropriate for age, slm cooperative. General: resting on stretcher denies needs security observing . Pain: Denies pain. Neurological: Level of Consciousness is awake, alert, obeys commands. Respiratory: No deficits noted. Derm: Skin is pink, warm & dry. 06:18 General: Appears in no apparent distress, comfortable, Behavior is cooperative. slm General: resting on stretcher security observing . Respiratory: Airway is patent Respiratory effort is even, unlabored, Respiratory pattern is regular. 07:13 General: Appears in no apparent distress, comfortable, Behavior is appropriate for age, slm cooperative. General: security observing breakfast tray provided . Respiratory: Airway is patent Respiratory effort is even, unlabored. 08:45 General: Appears in no apparent distress, comfortable, Behavior is cooperative. mk4 Neurological: Level of Consciousness is awake, alert. 10:18 General: Appears in no apparent distress, comfortable, Behavior is cooperative, reading mk4 magazine in room shower offered. 11:38 General: Appears in no apparent distress, comfortable, Behavior is cooperative, reading mk4 magazine in room pleasant denies needs. 12:48 General: Appears in no apparent distress, comfortable, Behavior is cooperative, mk4 awaiting bed placement. 13:48 General: Appears in no apparent distress, comfortable, Behavior is cooperative, reading mk4 magazine , lunch provided denies needs. 14:35 General: Appears in no apparent distress, watching DVD conversing pleasantly with staff.[facility] 15:09 General: Appears in no apparent distress, comfortable, transferred to [facility]. 4 Mental Health Eval: 10/07 14:46 Mental health consult is initiated at 14:30. Status: The patient is not a ml4 service bar cashier or dependent. [facility] Behavioral Health: The patient is not an established patient of [facility] Behavioral Health. Referral Information: Evaluation referral is generated by LCSR, transfer from [facility] ED. The patient was referred for evaluation because thoughts of suicide with plan to OD. Pt attempted suicide on Sep 24, 2016 by OD on Prazosin, along with self-mutilation behavior to both forearms with razor blade. Pt continues to express SI with plan to OD. Subjective: The patients chief complaint is pt states, "I am pissed that I'm still alive and I don't want to be on this earth any longer." Pt reports suffering from suicidal thoughts for the past 2 wks due to command AH. Admits attempting suicide on Sep 24 by OD on entire bottle of Prazosin, along with self mutilation and was distressed when she awoke. Additionally, she reports suffering from command AH and appears internally pre-occupied during interview. Pt states, "the voices are telling me to hurry up and do it really quick and I can't get them to stop talking." Pt denies any specific stressor triggering her suicidal thoughts and suicide attempt. She does have a significant mental health hx, including numerous suicide attempts. Pt continues to voice SI with plan to OD . Delusions are denied. Patient's mood is angry, anxious, depressed, irritable, Auditory Hallucinations are reported by the patient. Command hallucinations are reported by the patient. Mental Health history: post-traumatic stress disorder, self -mutilation, sleep disturbance, Mental Health Admissions: Numerous hospitalizations, last transferred to [facility]) on 11/29/15 following a suicide attempt(Self-mutilation) Current Outpatient Mental Health Services: Therapist / Agency: Shila, Behavioral Health and [facility] and [facility] . Randa Maria, Behavioral Health and Wellness in [facility] . Current living environment is Family / Home Support: lives with elizabeth and his 11 year old daughter. 11 year old was not present when pt attempted suicide by OD. Patient presents to Emergency Department with the following symptoms within the past 2 weeks: agitation, anger, anxiety, decreased appetite, depressed mood, feelings of helplessness/hopelessness, Command AH to kill self . poor concentration, Patient has mutilated themselves by cutting their right arm and left arm sleep disturbance - insomnia, suicidal ideation with plan for pills. Substance abuse: Pt denies. Mental status exam: Patients appearance is unkempt, Patient's behavior is bizarre, Speech is rapid. Affect is labile. Mood is anxious. Hallucinations are command with plan to OD . Appetite is poor. Memory is good. Energy level is normal. Content of thought is depressive. due to on-going suicidal thoughts Thought process is intact. Cognitive level is oriented to person, place, time and situation Patient's insight is poor. Judgement is poor. Rapport with interviewer is good. Suicidal Ideation present with a plan to kill self by pills. Homicidal ideation is denied. Disposition: Medically cleared for disposition by Emile Castañeda MD Psychiatric Consult is performed by phone with Dr Danny Tom The patient is to be transferred to accepting facility. [facility] Admission Criteria: The patient has had a suicide attempt in the recent past. as described above . The patient is experiencing suicidal ideation. The patient displays self-mutilative behavior. The patient requires continuous observation and/or control to protect self, others or property. The patient's care requires a multi-modal treatment plan under close supervision and coordination due to the complexity and severity of the patient's symptoms. The patient requires administration and monitoring of psychoactive medications by skilled medical providers due to the side effects of the psychoactive medications or significant dosage adjustments. Legal Status: [place] [facility] [place]. [place] Safe [place] Safe Act is [place] to this patient. The patient poses a risk to self or other and the Nursing Fire Lookout has been notified. He/She will enter the patient's data. DSM-V Differential Diagnosis: Major Depressive Disorder severe (F33.2) With psychotic features (F32.3). 16:06 Narrative: [facility] has beds available, however their ED is unable to accommodate due to ml4 high volume. PSA is directed to contact them later tonight if a bed is not found. 17:25 Narrative: Pt's chart faxed to [facility] for review, awaiting a reply. Confirmed ml4 receipt at [facility], 5 W) awaiting possible acceptance.... 18:07 Narrative: Pt is accepted to [facility], 5 W). ml4 21:19 Narrative: Due to the dangerous weather conditions, [facility] is unable to transport at this ml4 time. roll shop supervisor \\T\\ [facility] and is directing PSA to re-present the pt in the am with the transfer center. 10/08 09:26 Narrative:. ca 11:50 Legal Status: Patient's legal status will be Emergency admission: 39. Awaiting: ml4 transfer to [facility]. 13:52 Insurance Pre-Certification: Aminata Penny at [facility]. Pt is approved for 10/08 ml4 -10/12 with review due on 10/12/16 with Ursula([phone], [phone]). Pending Auth# [id number] was given due to being unaware if pt had a bed on [facility], however PSA left a message on Ursula's confidential voicemail. . Vital Signs: 10/07 13:52 BP 141 / 80 RA Sitting (auto/reg); Pulse 77; Resp 18; Temp 97.7(O); Weight 84.82 kg jrd (R); Height 5 ft. 3 in. (160.02 cm) (R); 14:24 Pulse Ox 97% on R/A; srm 19:34 BP 164 / 84; Pulse 74; Resp 18; Temp 97.4; Pulse Ox 96% ; Pain 0/10; ajs 01 05:38 BP 129 / 79; Pulse 77; Resp 18; Temp 97.8; Pulse Ox 96% on R/A; Pain 0/10; slm 14:24 BP 158 / 95; Pulse 79; Temp 97.7(O); Pulse Ox 100% on R/A; pjf 10/07 13:52 Body Mass Index 33.13 (84.82 kg, 160.02 cm) jrd Vitals: 10/07 13:59 Log In Time N/A - ambulance arrival. dsf ED Course: 13:39 Patient visited by Darren Melton Reg. lg 13:39 Patient moved to Waiting lg 13:40 Patient moved to I7 / mk4 13:42 Patient visited by Noé Cohen PCA. jrd 13:52 Patient visited by Noé Cohen PCA. jrd 13:57 Triage Initiated dsf 13:58 Emile Castañeda MD is Attending Physician. br1 14:01 Patient visited by Noé Cohen PCA. jrd 14:14 Patient visited by Noé Cohen PCA. jrd 14:20 Psych Safety Check: Location: Visual Assessment:. lt1 14:22 Patient visited by Emile Castañeda MD. br1 14:47 ETOH Sent. dsf 15:20 Patient visited by Aleksandra Hooker RN. dsf 15:25 [facility] Payment Agreement was scanned into [employer] and attached to record. gjb 15:58 Patient moved to OBSERVATION br1 16:52 Patient visited by Noé Cohen PCA. jrd 17:18 Patient visited by Aleksandra Hooker RN. dsf 17:56 E Legal paperwork was scanned into [employer] and attached to record. ml4 18:07 Patient visited by Aleksandra Hooker RN. dsf 18:10 Patient visited by Aleksandra Hooker RN. dsf 18:10 The patient / caregiver is instructed regarding the plan of care and ED course. dsf 18:10 No IV's were initiated during this patient's visit. No procedures done that require dsf assistance. 19:09 Patient visited by Tena Gloria LPN. ka4 19:25 Patient moved to [facility] dsf 19:31 Patient visited by Elkin Barros. mas 19:34 Patient visited by Malika Madison. ajs 19:45 Patient visited by Elkin Barros. mas 20:00 Patient visited by Elkin Barros. mas 20:15 Patient visited by Elkin Barros. mas 20:24 Heather Davila LPN is Primary Nurse. slm 20:30 Patient visited by Elkin Barros. mas 20:45 Patient visited by Elkin Barros. mas 20:59 Patient visited by Cherise Medrano, CABRERA. cln 21:00 Patient visited by Elkin Barros. mas 21:15 Patient visited by Elkin Barros. mas 21:16 Patient visited by Heather Davila LPN. slm 21:31 Patient visited by Elkin Barros. mas 21:49 Patient visited by Elkin Barros. mas 22:00 Patient visited by Elkin Barros. mas 22:15 Patient visited by Elkin Barros. mas 22:31 Patient visited by Elkin Barros. mas 22:45 Patient visited by Elkin Barros. mas 22:45 Patient visited by Heather Davila LPN. slm 23:01 Patient visited by Elkin Barros. mas 23:05 Patient visited by Heather Davila LPN. slm 23:15 Patient visited by Elkin Barros. mas 23:30 Patient visited by Elkin Barros. mas 10/08 00:05 Patient visited by Elkin Barros. mas 00:26 Patient visited by Elkin Barros. mas 00:28 Patient visited by Heather Davila LPN. slm 00:31 Patient visited by Elkin Barros. mas 00:45 Patient visited by Elkin Barros. mas 01:01 Patient visited by Elkin Barros. mas 01:16 Patient visited by Elkin Barros. mas 01:30 Patient visited by Elkin Barros. mas 01:42 Patient visited by Heather Davila LPN. slm 01:45 Patient visited by Elkin Barros. mas 02:00 Patient visited by Elkin Barros. mas 02:15 Patient visited by Elkin Barros. mas 02:30 Patient visited by Elkin Barros. mas 02:45 Patient visited by Elkin Barros. mas 02:55 Patient visited by Dafne Marmolejo RN. sls1 03:00 Patient visited by Elkin Barros. mas 03:15 Patient visited by Elkin Barros. mas 03:54 Patient visited by Heather Davila LPN. slm 04:04 Patient visited by Elkin Barros. mas 04:15 Patient visited by Heather Davila LPN. slm 04:44 Patient visited by Elkin Barros. mas 04:44 Patient visited by Elkin Barros. mas 05:01 Patient visited by Elkin Barros. mas 05:05 Patient visited by Heather Davila LPN. slm 05:15 Patient visited by Elkin Barros. mas 05:38 Patient visited by Heather Davila LPN. slm 05:39 Patient visited by Elkin Barros. mas 05:45 Patient visited by Elkin Barros. mas 06:00 Patient visited by Elkin Barros. mas 06:15 Patient visited by Elkin Barros. mas 06:19 Patient visited by Heather Davila LPN. slm 06:30 Patient visited by Elkin Barros. mas 06:45 Patient visited by Elkin Barros. mas 07:05 Patient visited by Elkin Barros. mas 07:09 Primary Nurse role handed off by Heather Davila LPN mcp 07:12 Heather Davila LPN is Primary Nurse. slm 07:13 Patient visited by Heather Davila LPN. slm 07:23 Patient visited by Zeeshan Hamm Security Aide. pjf 07:36 Patient visited by Zeeshan Hamm Security Aide. pjf 07:45 Patient visited by Zeeshan Hamm Security Aide. pjf 08:06 Patient visited by Zeeshan Hamm Security Aide. pjf 08:29 Patient visited by Zeeshan Hamm Security Aide. pjf 08:41 Patient visited by Zeeshan Hamm Security Aide. pjf 09:39 Patient visited by Zeeshan Hamm Security Aide. pjf 09:39 Patient visited by Zeeshan Hamm Security Aide. pjf 10:01 Patient visited by Zeeshan Hamm Security Aide. pjf 10:22 Patient visited by Zeeshan Hamm Security Aide. pjf 10:35 Patient visited by Zeeshan Hamm Security Aide. pjf 10:54 Patient visited by Zeeshan Hamm Security Aide. pjf 11:05 Patient visited by Zeeshan Hamm Security Aide. pjf 11:19 Patient visited by Zeeshan Hamm Security Aide. pjf 11:39 Patient visited by Zeeshan Hamm Security Aide. pjf 11:41 Patient visited by Zeeshan Hamm Security Aide. pjf 11:48 Patient visited by Zeeshan Hamm Security Aide. pjf 12:08 Patient visited by Zeeshan Hamm Security Aide. pjf 12:18 Patient visited by Zeeshan Hamm Security Aide. pjf 12:34 Patient visited by Wil Washington. rn1 12:34 Danny Tom is Hospitalizing Provider. mk4 12:45 Patient visited by Wil Washington. rn1 13:00 Patient visited by Wil Washington. rn1 13:36 Patient visited by Zeeshan Hamm Security Aide. pjf 13:50 Patient visited by Zeeshan Hamm Security Aide. pjf 14:19 Patient visited by Zeeshan Hamm Security Aidrk. pjf 14:20 MHE Legal paperwork was scanned into [employer] and attached to record. ml4 14:37 Patient visited by Zeeshan Hamm Security Aidrk. pjf 10/10 07:59 T-Sheet-- Draft Copy was scanned into [employer] and attached to record. gb Administered Medications: 10/07 14:36 Drug: Nicotine 1 applic [nicotine 21 mg/24 hr daily transdermal patch (1 patches)] [facility] Route: Transdermal; Site: left upper arm; 14:47 Drug: LORazepam 1 mg [lorazepam 1 mg tablet (1 tabs)] Route: PO; f 15:47 Follow up: Response: Anxiety is improved f 19:27 Drug: LORazepam 1 mg [lorazepam 1 mg tablet (1 tabs)] Route: PO; ka4 Attachments: 10/08 14:20 MHE Legal paperwork ml4 Order Results: Lab Order: ETOH; SPEC'M 10/07/16 14:43 Test: ETHYL ALCOHOL (ETHANOL); Value: < 0.003; Range: 0.000-0.010; Units: %; Status: F Outcome: 10/07 17:47 ER care complete, transfer ordered by Provider. br1 18:08 Admission hand-off: Report called to Nati Benitez RN %w at [facility]. 18:10 No special radiology studies were completed. [facility] 19:10 Discharge Assessment: Patient awake, alert and oriented x 3. No cognitive and/or f functional deficits noted. Patient verbalized understanding of disposition instructions. patient administered narcotics - no. 19:11 Property :Personal belongings accompany Pt. [facility] 10/08 12:35 Decision to Hospitalize by Provider. 4 12:48 The following High Risk Discharge criteria are identified: None. Admitted to Psych. 4 14:35 Condition: stable. mk4 15:15 Patient left the ED. pjf Signatures: Lina Serna RN [facility] Ursula Garcia, RN RN mcp Tawnya Gloria, PSA PSA ca Anayeli, Katerin, Reg Reg gb Ganter, LoriLee, Reg Reg lg Fernessazo, Zeeshan, Security Aide Securpf Adeline Vilchis, PSA PSA ml4 Emile Castañeda MD MD br1 Elkin Barros DesireeRN RN [facility] Malika Madison Shannon RN RN sls1 Heather Davila LPN [employer] slCandi Arnold RN RN mk4 Tena Gloria,IOANA [employer] ka4 Noé Cohen, POLITICAL ORGANIZER POLITICAL ORGANIZER jrWil Ko rn1 Bridgette Preciado Leanna lt1 Cherise Medrano, POLITICAL ORGANIZER POLITICAL ORGANIZER cln Corrections: (The following items were deleted from the chart) 10/07 17:27 16:29 Transition of care to Pt[facility], awaiting a reply. [facility] 16:19 Derm: Skin is pink, warm & dry. f [facility] 18:07 17:18 Derm: Skin is pink, warm & dry. [facility] f 18:07 18:05 Derm: Skin is pink, warm & dry. [facility] 10/08 11:17 10/07 14:46 Referral Information: Evaluation referral is generated by [facility], transfer ml4 from [facility] ED. The patient was referred for evaluation because thoughts of suicide with plan to OD. Pt attempted suicide on Sep 24, 2016 by OD on Prazosin, along with self-mutilation behavior to both forearms with razor blade. Pt continues to express SI with plan to OD. [facility] 10/08 12:49 12:34 Andres Santana is Hospitalizing Provider. [place] [id number] 12:49 12:34 Hospitalizing Provider role handed off by Andres Santana [place] [id number] 13:17 10/07 14:46 Mental status exam: Patients appearance is unkempt, Patient's behavior is ml4 bizarre, Speech is normal. Affect is labile. Mood is anxious. Hallucinations are command with plan to OD . Appetite is poor. Memory is good. Energy level is normal. Content of thought is grandiose. due to on-going thoughts of suicide with plan. Thought process is intact. Cognitive level is oriented to person, place, time and situation Patient's insight is poor. Judgement is poor. Rapport with interviewer is good. Suicidal Ideation present with a plan to kill self by pills. Homicidal ideation is denied. [facility] 10/08 13:23 10/07 14:46 DSM-V Differential Diagnosis: Major Depressive Disorder severe (F33.2) [place] [id number] 10/08 13:28 10/07 14:46 Mental status exam: Patients appearance is unkempt, Patient's behavior is ml4 bizarre, Speech is normal. Affect is labile. Mood is anxious. Hallucinations are command with plan to OD . Appetite is poor. Memory is good. Energy level is normal. Content of thought is depressive. due to on-going suicidal thoughts Thought process is intact. Cognitive level is oriented to person, place, time and situation Patient's insight is poor. Judgement is poor. Rapport with interviewer is good. Suicidal Ideation present with a plan to kill self by pills. Homicidal ideation is denied. ml4 Chart Complete MTDD
[2016-10-10 18:00] VITALS: BP 146/70
[2016-10-10] MEDS: PALIPERIDONE 3 MG ER TAB (INVEGA) PO SCH (21:25)
[2016-10-10] MEDS: QUEtiapine FUMARATE 50 MG TAB PO SCH (21:25)
[2016-10-10] MEDS: HALOPERIDOL 5 MG TAB PO PRN (21:25)
[2016-10-10] MEDS: traZODone 50 MG TAB PO PRN (21:25)
[2016-10-10] MEDS: GABAPENTIN 100 MG CAP PO SCH (21:25)
[2016-10-11 06:39] VITALS: BP 143/65
[2016-10-11] MEDS: NICOTINE 21MG/24HR 1 EA TRANSDERMAL TD SCH (08:39)
[2016-10-11] MEDS: LORazepam 1 MG TAB PO PRN ×2 (12:17→19:58)
[2016-10-11 18:25] VITALS: BP 135/94
--- NOTE | 2016-10-11 20:38 | IPN ---
DATE: 10/11/2016 TREATMENT: The patient is seen for ongoing treatment review. Today is her 4th day of inpatient admission and her current medications are reviewed. She states today "I'm doing good today." No new problems reported. She states that she has been taking her medication and her depression seems to be getting better. CURRENT MEDICATIONS: - Invega 40 mg orally at bedtime - gabapentin 100 mg orally at bedtime - quetiapine 50 mg orally at bedtime OBSERVATIONS: Her vital signs are stable, blood pressure 140/65, pulse 80, respirations 18, and temperature 98.7. She is noted to interact normally with her peers, observed watching a football game, and does not appear to be in distress. Her mood is showing improvements. Affect is less constricted. She denies suicidal or homicidal thoughts, plan, or intent. No psychotic feature is evident. ASSESSMENT: Patient continues to respond to medications; however, she still requires further symptom stabilization. She is encouraged to also participate actively in therapeutic programs. PLAN: Current treatment will be continued with ongoing assessment. CAR
[2016-10-11] MEDS: HALOPERIDOL 5 MG TAB PO PRN (21:23)
[2016-10-11] MEDS: QUEtiapine FUMARATE 50 MG TAB PO SCH (21:23)
[2016-10-11] MEDS: PALIPERIDONE 3 MG ER TAB (INVEGA) PO SCH (21:23)
[2016-10-11] MEDS: GABAPENTIN 100 MG CAP PO SCH (21:23)
[2016-10-11] MEDS: traZODone 50 MG TAB PO PRN (23:02)
[2016-10-12 05:55] VITALS: BP 106/54
[2016-10-12] MEDS: NICOTINE 21MG/24HR 1 EA TRANSDERMAL TD SCH (08:45)
[2016-10-12] MEDS: LORazepam 1 MG TAB PO PRN (10:31)
[2016-10-12] MEDS: HALOPERIDOL 5 MG TAB PO PRN (16:06)
[2016-10-12 18:22] VITALS: BP 124/82
[2016-10-12] MEDS: GABAPENTIN 100 MG CAP PO SCH (20:15)
[2016-10-12] MEDS: QUEtiapine FUMARATE 50 MG TAB PO SCH (20:15)
[2016-10-12] MEDS: LORazepam 2 MG TAB PO PRN (20:15)
[2016-10-12] MEDS: traZODone 50 MG TAB PO PRN (20:15)
[2016-10-12] MEDS: PALIPERIDONE 3 MG ER TAB (INVEGA) PO SCH (20:15)
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
[2016-10-13 06:05] VITALS: BP 109/62
[2016-10-13] MEDS: NICOTINE 21MG/24HR 1 EA TRANSDERMAL TD SCH (08:32)
[2016-10-13] MEDS ORDERED: **PENDING PPD ENTRY XX SCH (09:00)
[2016-10-13 18:00] VITALS: BP 138/86
[2016-10-13] MEDS: LORazepam 2 MG TAB PO PRN (21:25)
[2016-10-13] MEDS: PALIPERIDONE 3 MG ER TAB (INVEGA) PO SCH (21:25)
[2016-10-13] MEDS: QUEtiapine FUMARATE 50 MG TAB PO SCH (21:25)
[2016-10-13] MEDS: GABAPENTIN 100 MG CAP PO SCH (21:25)
[2016-10-13] MEDS: HALOPERIDOL 5 MG TAB PO PRN (22:25)
[2016-10-13] MEDS: traZODone 50 MG TAB PO PRN (22:25)
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
[2016-10-14 06:34] VITALS: BP 104/59
[2016-10-14] MEDS: NICOTINE 21MG/24HR 1 EA TRANSDERMAL TD SCH (07:59)
[2016-10-14] MEDS ORDERED: TUBERCULIN PPD 5 UNITS/0.1 ML ID SCH (10:00)
[2016-10-14] MEDS ORDERED: TUBERCULIN PPD 5 UNITS/0.1 ML ID ONE (10:00)
[2016-10-14] MEDS: LORazepam 2 MG TAB PO PRN (11:52)
[2016-10-14 18:00] VITALS: BP 123/66
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
[2016-10-14] MEDS ORDERED: LORazepam 0.5 MG TAB PO PRN (20:15)
[2016-10-14] MEDS: GABAPENTIN 100 MG CAP PO SCH (21:27)
[2016-10-14] MEDS: PALIPERIDONE 3 MG ER TAB (INVEGA) PO SCH (21:27)
[2016-10-14] MEDS: traZODone 50 MG TAB PO PRN (23:01)
[2016-10-14] MEDS: HALOPERIDOL 5 MG TAB PO PRN (23:01)
[2016-10-15] MEDS: traZODone 50 MG TAB PO PRN (00:26)
[2016-10-15] MEDS: ACETAMINOPHEN TAB 650MG DOSE (2X325MG) PO PRN (04:26)
[2016-10-15 06:17] VITALS: BP 140/90
[2016-10-15] MEDS: NICOTINE 21MG/24HR 1 EA TRANSDERMAL TD SCH (08:10)
[2016-10-15] MEDS ORDERED: PPD DOCUMENTATION ENTRY MISC XX SCH (10:00)
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
[2016-10-15] MEDS ORDERED: traZODone 100 MG TAB PO PRN (17:30)
[2016-10-15 18:00] VITALS: BP 129/86
[2016-10-15] MEDS: GABAPENTIN 100 MG CAP PO SCH (21:52)
[2016-10-15] MEDS: PALIPERIDONE 3 MG ER TAB (INVEGA) PO SCH (21:52)
[2016-10-16] MEDS: HALOPERIDOL 5 MG TAB PO PRN (00:23)
[2016-10-16] MEDS: ACETAMINOPHEN TAB 650MG DOSE (2X325MG) PO PRN (02:28)
[2016-10-16 06:08] VITALS: BP 140/88
[2016-10-16 06:09] VITALS: BP_SYST 131; BP_SYST 140; BP_DIAS 83; BP_DIAS 88
[2016-10-16] MEDS ORDERED: NICO21PAT TD (08:15)
[2016-10-16] MEDS: NICOTINE 21MG/24HR 1 EA TRANSDERMAL TD SCH (08:15)
[2016-10-16] MEDS ORDERED: PPD DOCUMENTATION ENTRY MISC XX SCH (10:00)
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
[2016-10-16] MEDS ORDERED: PALI1TAB2 PO (12:18)
[2016-10-16] MEDS ORDERED: GABA-279 PO (12:18)
[2016-10-16] MEDS ORDERED: HALO2TA PO (12:18)
[2016-10-16] MEDS ORDERED: TRAZ10TA PO (12:18)
== END 2016-10-16 13:25 | disposition home or self-care (01) | DRG 754 ==
LOC: M ED 13:37 → M PSY 10-08 15:15
PROVIDERS: ADMIT Psychiatry & Neurology Psychiatry; ATTEND Psychiatry & Neurology Psychiatry
DX: F32.9 Major depressive disorder, single episode, unspecified (principal); F44.81 Dissociative identity disorder; F17.200 Nicotine dependence, unspecified, uncomplicated; Z91.038 Other insect allergy status; G47.9 Sleep disorder, unspecified

== ENCOUNTER 2016-12-23 17:23 | Inpatient (IN) | payer OTHER ==
[~2016-12-23] VITALS: Ht 160 cm; Wt 112.9 kg
[~2016-12-23 17:23] MED LIST changes: +GABA-279 PO; +HALO2TA PO; +NICO21PAT TD; +PALI1TAB2 PO; +TRAZ10TA PO; +VENL150C43 PO
[2016-12-23] MEDS ORDERED: NICOTINE 21MG/24HR 1 EA TRANSDERMAL TD ONE (19:45)
[2016-12-23 20:22] LABS: MEAN CORPUSCULAR HEMOGLOBIN 30.7 pg (27.0-33.0); MEAN CORPUSCULAR HGB CONC 33.6 g/dl (32.0-36.5); MEAN CORPUSCULAR VOLUME 91.4 fl (80.0-96.0); RED CELL DISTRIBUTION WIDTH 13.5 % (11.5-14.5); WHITE BLOOD COUNT 12.7 K/mm3 (4.0-10.0)
[2016-12-23 20:39] LABS: CONTROL LINE HCG INT CTR LINE PRESENT
[2016-12-23 20:47] LABS: METHADONE URINE NEGATIVE (NEGATIVE)
[2016-12-23 20:58] LABS: ALBUMIN 3.4 GM/DL (3.2-5.2); ALBUMIN/GLOBULIN RATIO 1.13 (1.00-1.93); ALKALINE PHOSPHATASE 65 U/L (45-117); ALT/SGPT 19 U/L (12-78); ANION GAP 8 MEQ/L (8-16); AST/SGOT 7 U/L (15-37); BILIRUBIN,DIRECT < 0.1 MG/DL (0.0-0.2); BILIRUBIN,TOTAL 0.2 MG/DL (0.2-1.0); BLOOD UREA NITROGEN 8 MG/DL (7-18); CALCIUM LEVEL 8.7 MG/DL (8.5-10.1); CARBON DIOXIDE LEVEL 24 MEQ/L (21-32); CHLORIDE LEVEL 107 MEQ/L (98-107); GLOMERULAR FILTRATION RATE > 60.0 (>60); GLUCOSE, FASTING 121 MG/DL (70-105); POTASSIUM SERUM 3.5 MEQ/L (3.5-5.1); SODIUM LEVEL 139 MEQ/L (136-145); TOTAL PROTEIN 6.4 GM/DL (6.4-8.2)
[2016-12-23] MEDS ORDERED: GABAPENTIN 100 MG CAP PO SCH (21:00)
[2016-12-23] MEDS ORDERED: PALIPERIDONE 3 MG ER TAB (INVEGA) PO SCH (21:00)
[2016-12-23] MEDS ORDERED: AMMONIA AROMATIC INHALANT (FLOOR STOCK) As Ordered ONE (21:28)
[2016-12-23] MEDS ORDERED: MOM 30ML SUSPENSION UDC PO PRN (23:30)
[2016-12-23] MEDS ORDERED: MAALOX 30 ML SUSP *UDC PO PRN (23:30)
[2016-12-23] MEDS ORDERED: traZODone 100 MG TAB PO PRN (23:30)
[2016-12-23] MEDS ORDERED: HALOPERIDOL 2 MG TAB PO PRN (23:30)
[2016-12-23] MEDS ORDERED: HALO2TA PO (23:44)
[2016-12-23] MEDS ORDERED: GABA-279 PO (23:44)
[2016-12-23] MEDS ORDERED: TRAZ100T4 PO (23:44)
[2016-12-23] MEDS ORDERED: PALI1TAB2 PO (23:44)
[2016-12-24 04:25] VITALS: BP 178/84
[2016-12-24] MEDS: NICOTINE 21MG/24HR 1 EA TRANSDERMAL TD SCH (09:09)
--- NOTE | 2016-12-24 11:47 | HPEPDOC ---
Medical History and Physical Date of Admission Dec 23, 2016 at 23:19 History and Physical PCP: Luba Trujillo [employer] BUSINESS ANALYST. ATTENDING: Dr. Yoan Sims HPI: 36yoF admitted to [facility] for unspecified depressive disorder, being medically examined today. No acute medical complaints today. Denies any fevers, chills, weakness, fatigue, [place], CP, SOB, cough, palpitations, abdominal pain, N/V /D or changes in bowel or bladder habits. PMHx: PTSD Anxiety/depression Bipolar disorder Dissociative disorder History of substance use History of alcohol use PSHX: Tubal ligation SOCHX: Resides in: [place] Marital Status: (suicide-previous ). Currently engaged. Kids: 6 children, 3 children live with family members. 3 children in [place]. Employment: Unemployed Tobacco use: One pack per day ETOH: States no alcohol for the past 2 years, previously completed rehabilitation program Illicit Drugs: History of opiates. States currently uses marijuana Q2 days. IV Drug Use: Denies Tattoos done unprofessionally: Denies FAMHX: Mother: Alive, patient states history of mental illness Father: Alive, patient states history of bipolar disorder Siblings: Alive, patient states 2 sisters history of bipolar disorder Children: 3 children Alive, well, living with other family members. Unexpected deaths due to medical reasons: None. ROS: As noted in HPI, otherwise 11pt ROS of systems reviewed and remarkable only for LMP 10/18/16. PE: GEN: 36yoF, appears stated age. Well-nourished, well developed. No acute distress. Alert and oriented x 3. Pleasant, interactive. HEENT: Normocephalic, atraumatic. Pupils are equal, round, and reactive to light. Extraocular movements are intact. No nystagmus appreciated. Sclera are nonicteric. Conjunctiva without injection. Nose midline. Nasal turbinates without bogginess. EACs both patent BL. TMs both visualized and bowers with good cone of light, no bulging or erythema. No facial asymmetry. Moist mucous membranes. Dentition fair. Pharynx pink and moist, no cobblestoning. Neck supple , trachea midline. No lymphadenopathy or thyromegaly appreciated. CHEST: Regular rate and rhythm, +S1, +S2 LUNGS: Clear to auscultation bilaterally. No wheezes, rales, or rhonchi. Breathing appears symmetric and easy. Patient is speaking in full sentences. No accessory muscle use. ABD: Round, soft, non-tender, non-distended. +Bowel sounds throughout. No rebound or guarding. No costovertebral angle tenderness. EXT: Pulses 2+ bilaterally dorsalis pedis and radial. No lower extremity edema appreciated. SKIN: [place], dry, warm. Capillary refill <2sec. No rashes. No drainage. No erythema. NEURO: Alert and oriented x 3. Cranial nerves III-XII are intact. No focal deficits appreciated. EKG pending. A&P: 36yoF admitted to [facility] for MDD 1. Psych. Plan per Psychiatry. EKG pending. 2. Nicotine dependence. Patch available. 3. Follow up with PCP on discharge. 4. Substance use. Per psychiatry 5. Leukocytosis. Patient asymptomatic. Afebrile. Likely stress response. Recheck CBC in a.m. 6. Elevated glucose. Likely not a fasting specimen. Glucose within normal limits 11/29/16. Recheck with BMP in a.m. 7. Staff member Teresa present throughout exam. Vital Signs Vital Signs Label Value Date Time Patient Temperature 98.1 degrees F 12/24/16 0425 Pulse 72 12/24/16 0425 Respiratory Rate 16 bpm 12/24/16 0425 Blood Pressure Assessment 178/84 (115) 12/24/16 0425 Blood Pressure Assessment 138/81 (100) 12/24/16 0411 Location Left Arm Source Automatic Cuff (NIBP) Laboratory Data Labs 24H Laboratory Tests 2 12/23/16 20:04: Acetaminophen Level < 2.0L, Aspartate Amino Transf (AST/SGOT) 7L, Alanine Aminotransferase (ALT/SGPT) 19, Alkaline Phosphatase 65, Total Bilirubin 0.2, Direct Bilirubin < 0.1, Albumin 3.4, Albumin/Globulin Ratio 1.13, Anion Gap 8, Calcium Level 8.7, Ethyl Alcohol Level < 0.003, Glomerular Filtration Rate > 60.0, Human Chorionic Gonadotropin, Qual NEGATIVE, Salicylates Level 4.0L, Thyroid Stimulating Hormone (TSH) 1.680, Total Protein 6.4, Urine Amphetamines Screen NEGATIVE, Urine Benzodiazepines Screen NEGATIVE, Urine Opiates Screen NEGATIVE, Urine Barbiturates Screen NEGATIVE, Urine Cannabinoids Screen POSITIVEH, Urine Cocaine Metabolite Screen NEGATIVE, Urine Methadone Screen NEGATIVE, Urine Phencyclidine Screen NEGATIVE CBC/BMP Laboratory Tests 12/23/16 20:04 Red Blood Count 4.37, Mean Corpuscular Volume 91.4, Mean Corpuscular Hemoglobin 30.7, Mean Corpuscular Hemoglobin Concent 33.6, Red Cell Distribution Width 13.5 Home Medications Scheduled Gabapentin (Gabapentin) 100 Mg Cap 100 MG PO QHS Paliperidone (Paliperidone ER) 3 Mg Tab 3 MG PO QHS Scheduled PRN Haloperidol (Haloperidol) 2 Mg Tab 2 MG PO Q4H PRN PRN AGITATION Trazodone HCl (Trazodone HCl) 100 Mg Tab 100 MG PO QHS PRN PRN SLEEP Allergies Coded Allergies: Bee Venom (Verified Allergy, Severe, SOB, 01/06/13) No Known Drug Allergy (Verified Allergy, Unknown, 01/06/13) Alba Flaherty Dec 24, 2016 11:47
[2016-12-24] MEDS ORDERED: traZODone 100 MG TAB PO PRN (13:00)
[2016-12-24] MEDS: clonazePAM 1 MG TAB PO SCH ×2 (15:11→20:17)
--- NOTE | 2016-12-24 16:20 | MHHPE ---
DATE OF ADMISSION: 12/23/2016 This 36-year-old female states "I have super highs and lows daily, I am bipolar, I am on everything except antidepressants." The patient has had numerous psychiatric admissions in 2011, 2012, 2013, 2015, and October of 2016. She has had poor sleep with director of early childhood awakening. She states her anxiety is very high and she does not know what to do. Outpatient care is at [facility], treated by Noble a nurse practitioner. The patient states she has been out of control for the last five years. The patient states she is unable to sleep. Family History: Mother and Father have Bipolar Disorder. shot and killed self 5-6 years ago. Pt. has 6 yo child who lives with paternal GM. Pt has 3 sisters, one who is diagnosed bipolar and one who has alcohol difficulties. PAST MEDICAL HISTORY: Negative. PAST SURGICAL HISTORY: Negative. DRUG HISTORY: Negative. ALCOHOL HISTORY: Negative. LEGAL HISTORY: Negative. NEUROLOGIC HISTORY: History. EDUCATION: Some college. 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 She was going to school to be an advocate but "I can't help people because I can't help myself." Her present symptoms are anxiety, thoughts racing, depression, and suicidal thoughts. MEDICATIONS: Presently: - Invega 3 mg - Haldol as needed every four hours for anxiety - Neurontin 100 mg which she says is a mood elevator - She is on trazodone for sleep. In her past, she states she has been on everything regarding medications. She states she was well for two years with Effexor and then it stopped working. Since October 2016, she has had some success with Invega. She said trazodone did help her with sleep but quit. She is not hearing voices. She is taking Haldol for anxiety. She says she becomes shaky, her heart racing and her head spinning, and the Haldol has not helped her. In the past, she has used Effexor, gabapentin, and Klonopin. 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 At that time, she went into rehabilitation for 28 days. MENTAL STATUS EXAMINATION: Extremely anxious women. Rapid speech. Her thought processes are some loose associations and tangential speech. She is not demonstrating any hallucinations of an auditory, olfactory, or gustatory nature. Insight and judgment are good. She is fully oriented. Recent and remote memory are intact. Poor attention and concentration. Full fund of knowledge. Her mood is anxious. Her affect is anxious. IMPRESSION: Bipolar disorder, mixed type. MEDICATIONS: Planned at this time are: - Invega 6 mg - mirtazapine 15 mg for sleep - Klonopin 2 mg three times a day PLAN: Observe and treat. MTDD
[2016-12-24 18:00] VITALS: BP 159/89
[2016-12-24] MEDS: PALIPERIDONE 3 MG ER TAB (INVEGA) PO SCH (20:17)
[2016-12-24] MEDS: MIRTAZAPINE 15 MG ***SOLTAB PO SCH (20:40)
[2016-12-25 06:17] VITALS: BP 141/88
[2016-12-25 07:42] LABS: MEAN CORPUSCULAR HEMOGLOBIN 30.4 pg (27.0-33.0); RED CELL DISTRIBUTION WIDTH 13.5 % (11.5-14.5); WHITE BLOOD COUNT 8.2 K/mm3 (4.0-10.0)
[2016-12-25 08:01] LABS: ANION GAP 7 MEQ/L (8-16); BLOOD UREA NITROGEN 11 MG/DL (7-18); CALCIUM LEVEL 9.4 MG/DL (8.5-10.1); CARBON DIOXIDE LEVEL 28 MEQ/L (21-32); CHLORIDE LEVEL 107 MEQ/L (98-107); CREATININE FOR GFR 0.89 MG/DL (0.55-1.02); GLOMERULAR FILTRATION RATE > 60.0 (>60); GLUCOSE, FASTING 104 MG/DL (70-105); POTASSIUM SERUM 4.7 MEQ/L (3.5-5.1); SODIUM LEVEL 142 MEQ/L (136-145)
[2016-12-25] MEDS: NICOTINE 21MG/24HR 1 EA TRANSDERMAL TD SCH (08:21)
[2016-12-25] MEDS: clonazePAM 1 MG TAB PO SCH ×3 (08:21→20:31)
[2016-12-25] MEDS: ACETAMINOPHEN TAB 650MG DOSE (2X325MG) PO PRN (08:24)
[2016-12-25 18:00] VITALS: BP 134/90
--- NOTE | 2016-12-25 19:25 | IPNPDOC ---
[facility] Progress Note Progress Note DATE OF SERVICE: 12/25/16 HISTORY: Patient is a 36-year-old female who has a history of multiple psychiatric admissions and reports wide mood swings describing as, "I get really manic and then I get really depressed and I have really, really bad anxiety 48% of the time." Supervisor Assembling met with patient today to assess treatment progress on inpatient unit. Patient rates current anxiety level is 5/10, depression 8/10, denies current suicidal or homicidal ideation, but reports she last experienced passive suicidal thinking this morning which she describes as, "sometimes I think everyone would just be better off if I wasn't around but I wouldn't do that to my kids, I don't want to raise my kids like this." Patient states she also experienced thoughts of cutting self, denies having plan or intent to harm self at the time. Patient indicates she is able to alert staff if symptoms worsen or become unmanageable. Patient denies current audiovisual hallucinations, but reports history of symptoms, denies current urge to engage in self-injurious behavior. Patient indicates since starting medication regimen in hospital she is experiencing reduced anxiety and improvement to mood noting, "I can be out of my room now," notes she has been making attempts to attend groups. Patient reports reduced ruminative thinking, improvement to sleep and denies nightmares symptoms, indicates appetite is stable, energy level vacillates, and she endorses concentration and focus challenges. VITAL SIGNS: See below. NEW TEST RESULTS: No new results. Labs on admission indicated elevated WBCs ( within normal limits on recheck) and glucose, low AST and anion gap. Patient has surgical history of tubal ligation and UDS positive for cannabinoids HCG negative on admission EKG pending CURRENT MEDICATIONS: See below. MENTAL STATUS EXAMINATION: Patient is a 36-year-old female who is pleasant and cooperative, makes fair eye contact, exhibits adequate personal hygiene and is dressed in hospital clothing , ambulates with steady gait, and appears stated age Speech: Is rapid and pressured, tangential at times, of normal volume, is coherent, spontaneous Language skills are intact. Thought processes including: Clear, goal-directed. Thought content: Generally rational, logical Abstract reasoning: Appears intact Description of associations: Tangential. Description of abnormal or psychotic thoughts: denies hallucinations but reports history, denies delusions, preoccupation with violence, homicidal or suicidal ideation, and obsessions]. Judgment: Fair. Insight: Fair. Orientation to time, place and person. Recent and remote memory: Appears intact. Attention span and concentration: Limited. Language: Normal. Fund of knowledge: Appears adequate. Mood: "I'm still anxious and my mood is all over, but I feel better than I did yesterday." Appears anxious, depressed, mood lability noted. Affect: Blunted, anxious, congruent with mood DIAGNOSES: Bipolar disorder, mixed, cannabis use disorder, rule out PTSD, history of polysubstance use disorder ASSESSMENT: Patient is 36-year-old female and mother, indicates her committed suicide 5 years ago and states she feels committed to "not letting my children be raised with parents like this, I want to get better." Patient has been isolating less to room, notes current medication regimen is helping her feel more comfortable in milieu with reduced symptoms of anxiety and mood lability. Patient is able to agree to alert staff if symptoms of anxiety and depression become unmanageable, or if suicidal ideation reemerges. Patient denies current suicidal and homicidal ideation and verbalizes awareness of how to access supportive services on unit if needed. Will monitor patient's response to medication regimen with plan to taper Klonopin as tolerated by patient. Patient is responding well to Klonopin with no signs of sedation or changes to cognitive functioning, will leave patient at current dose and will evaluate dose reduction tomorrow. Will monitor for medication side effects and will evaluate patient safety, resolution of suicidal ideation, and discharge readiness. Patient indicates she plans to return home when prepared for discharge and real estate services coordinator will initiate contact with [employer] immigration case worker to ensure that supportive services and outpatient psychiatric services are in place for patient at time of discharge. MANAGEMENT PLAN: Continue Invega 6 mg po q hs, mirtazapine 15 mg po q hs. Continue Klonopin 2 mg po TID and evaluate dose reduction tomorrow as tolerated by patient Maintain safety precautions Patient to attend groups and participate in unit programming to develop coping strategies Engage patient in discharge planning process and arrange meeting with support system to ensure safe discharge planning when appropriate Patient to follow up with PCM upon discharge TIME SPENT: 35 minutes Vital Signs Vital Signs Date Time Temp Pulse Resp B/P Pulse Ox O2 Delivery O2 Flow Rate FiO2 12/25/16 06:17 98.2 63 18 141/88 12/24/16 04:11 97 12/23/16 17:23 Room Air Laboratory Data 24H Labs Laboratory Tests 2 12/25/16 07:23: Anion Gap 7L, Blood Urea Nitrogen 11, Creatinine 0.89, Sodium Level 142, Potassium Level 4.7#, Chloride Level 107, Carbon Dioxide Level 28, Calcium Level 9.4, Glomerular Filtration Rate > 60.0 CBC/BMP Laboratory Tests 12/25/16 07:23 Calcium Level 9.4, Red Blood Count 4.48, Mean Corpuscular Volume 92.0, Mean Corpuscular Hemoglobin 30.4, Mean Corpuscular Hemoglobin Concent 33.0, Red Cell Distribution Width 13.5 Current Medications Current Medications Acetaminophen (Tylenol Tab) 650 mg Q6HP PRN PO HEADACHE or DISCOMFORT Last administered on 12/25/16 08:24; Start 12/23/16 at 23:30; Stop 01/22/17 at 23:29 Al Hydrox/Mg Hydrox/Simethicone (Mylanta) 30 ml Q4HP PRN PO HEARTBURN/ INDIGESTION; Start 12/23/16 at 23:30; Stop 01/22/17 at 23:29 Clonazepam (KlonoPIN) 2 mg TID PO Last administered on 12/25/16 15:36; Start 12/24/16 at 16:00; Stop 12/31/16 at 15:59 Gabapentin (Neurontin) 100 mg QHS PO ; Start 12/23/16 at 21:00; Stop 12/24/16 at 12:58; Status DC Haloperidol (Haldol) 2 mg Q4HP PRN PO AGITATION Last administered on 12/24/16 09:09; Start 12/23/16 at 23:30; Stop 12/24/16 at 12:58; Status DC Home Med (Med Rec Complete!) ASDIRECTED XX ; Start 12/23/16 at 23:45; Stop at 23:52; Status DC Magnesium Hydroxide (Milk Of Magnesia) 30 ml DAILYPRN PRN PO CONSTIPATION; Start 12/23/16 at 23:30; Stop 01/22/17 at 23:29 Mirtazapine (Remeron Soltab) 15 mg QHS PO Last administered on 12/24/16 20 :40; Start 12/24/16 at 21:00; Stop 01/23/17 at 20:59 Nicotine (Nicoderm Cq 21mg) 1 patch DAILY TD Last administered on 12/25/16 08: 21; Start 12/24/16 at 09:00; Stop 01/23/17 at 08:59 Paliperidone (Invega) 3 mg QHS PO ; Start 12/23/16 at 21:00; Stop 12/24/16 at 12 :58; Status DC Paliperidone (Invega) 6 mg QHS PO Last administered on 12/24/16 20:17; Start 12/24/16 at 21:00; Stop 01/23/17 at 20:59 Trazodone HCl (Desyrel) 100 mg QHSP PRN PO INSOMNIA; Start 12/23/16 at 23:30; Stop 12/24/16 at 12:58; Status DC Trazodone HCl (Desyrel) 200 mg QHSP PRN PO INSOMNIA; Start 12/24/16 at 13:00; Stop 01/23/17 at 12:59; Status Cancel Allergies Coded Allergies: Bee Venom (Verified Allergy, Severe, SOB, 01/06/13) No Known Drug Allergy (Verified Allergy, Unknown, 01/06/13) Awilda Holloway Dec 25, 2016 19:25
[2016-12-25] MEDS: PALIPERIDONE 3 MG ER TAB (INVEGA) PO SCH (20:31)
[2016-12-25] MEDS: MIRTAZAPINE 15 MG ***SOLTAB PO SCH (22:22)
[2016-12-26 06:45] VITALS: BP 142/63
[2016-12-26] MEDS: NICOTINE 21MG/24HR 1 EA TRANSDERMAL TD SCH (08:16)
[2016-12-26] MEDS: ACETAMINOPHEN TAB 650MG DOSE (2X325MG) PO PRN ×3 (08:17→23:16)
[2016-12-26] MEDS: clonazePAM 1 MG TAB PO SCH ×3 (09:42→21:36)
--- NOTE | 2016-12-26 09:49 | ECGEPIP ---
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
[2016-12-26] MEDS: IBUPROFEN 600 MG TAB PO PRN ×2 (14:10→22:40)
[2016-12-26] MEDS: DIVALPROEX 500MG *ER* TAB PO SCH ×2 (14:25→21:36)
--- NOTE | 2016-12-26 15:38 | IPN ---
DATE: 12/26/2016 I met with Kiersten Reyes today. She had significant tooth pain following an extraction. I ordered ibuprofen for her. She states she slept very well on her present medication, and she states her anxiety is under control; however, she is still concerned she has severe ups and downs in mood. I began Depakote today, 500 mg twice a day. Speech was normal. Thought processes: No disturbances of thought. No loose associations. No abnormal or psychotic thoughts noted. Judgment and insight were good. Orientation was full in three spheres. No difficulties with recent and remote memory. Attention and concentration were fair. Patient's language was no disturbance. Fund of knowledge was full. Mood was labile. Affect was anxious. Patient states she is spending a lot of time crying in her room as her moods continually change. IMPRESSION: Rapid cycling mood disorder. She is presently on Klonopin 2 mg three times a day , Invega 6 mg, and I have begun Depakote ER 500 mg twice a day. MTDD
[2016-12-26 18:00] VITALS: BP 138/94
[2016-12-26] MEDS: PALIPERIDONE 3 MG ER TAB (INVEGA) PO SCH (21:36)
[2016-12-26] MEDS: MIRTAZAPINE 15 MG ***SOLTAB PO SCH (22:39)
[2016-12-26] MEDS: CLINDAMYCIN 150 MG CAP PO SCH (23:02)
[2016-12-26] MEDS: ANBESOL GEL 10% TOP PRN (23:45)
[2016-12-27 06:20] VITALS: BP 153/77
--- NOTE | 2016-12-27 07:03 | IPN ---
DATE: 12/26/2016 A 36-year-old patient on the inpatient mental health unit. She was complaining of a toothache, her upper two teeth but she said it went around down the side of her face to her lower jaw. Inspection of her back two molars, the gum is reddened, a small amount of pus. There are caries on two teeth. No difficulty swallowing. Pharynx was pink and moist. Tongue was midline. Neck supple without lymphadenopathy. IMPRESSION AND PLAN: Abscessed tooth. Will add clindamycin 300 mg by mouth three times a day to start now. Advised to alternate ibuprofen 600 mg every 6 hours and her Tylenol. Anbesol Gel was ordered, but the patient was instructed to use it only sparingly as don't want to clog and make the abscess unable to drain. Will monitor.
[2016-12-27] MEDS: NICOTINE 21MG/24HR 1 EA TRANSDERMAL TD SCH (09:20)
[2016-12-27] MEDS: clonazePAM 1 MG TAB PO SCH ×3 (09:20→21:04)
[2016-12-27] MEDS: CLINDAMYCIN 150 MG CAP PO SCH ×3 (09:20→21:04)
[2016-12-27] MEDS: DIVALPROEX 500MG *ER* TAB PO SCH ×2 (09:20→21:04)
[2016-12-27] MEDS: ANBESOL GEL 10% TOP PRN ×2 (09:21→16:30)
--- NOTE | 2016-12-27 10:04 | IPN ---
DATE: 12/27/2016 Ms. Reyes is very pleased. She says she is sleeping very well. She feels her medications are working. She is having no significant anxiety. Her mood appears to be stable. Presently, the patient is on Remeron 15 mg, clonazepam 2 mg three times a day, Invega 6 mg. Speech is normal, articulation and volume. No disturbances of thought processes. No loose associations. No abnormal or psychotic thoughts. Denies hallucinations, delusions, obsessions, compulsions and phobias. Judgment and insight are fair. Orientation in three spheres is normal. Remote and recent memory are intact. Attention and concentration are good. No disturbances of language. Full fund of knowledge. Mood is good. Affect is neutral. Present operating diagnosis is bipolar disorder, mixed type.
[2016-12-27] MEDS: IBUPROFEN 600 MG TAB PO PRN (16:28)
[2016-12-27 18:00] VITALS: BP 138/88
[2016-12-27] MEDS: PALIPERIDONE 3 MG ER TAB (INVEGA) PO SCH (21:04)
[2016-12-27] MEDS: ACETAMINOPHEN TAB 650MG DOSE (2X325MG) PO PRN (21:05)
[2016-12-27] MEDS: MIRTAZAPINE 15 MG ***SOLTAB PO SCH (23:02)
[2016-12-28 06:00] VITALS: BP 108/54
[2016-12-28] MEDS: CLINDAMYCIN 150 MG CAP PO SCH ×3 (08:18→20:28)
[2016-12-28] MEDS: clonazePAM 1 MG TAB PO SCH ×3 (08:18→20:28)
[2016-12-28] MEDS: DIVALPROEX 500MG *ER* TAB PO SCH ×2 (08:18→20:28)
[2016-12-28] MEDS: IBUPROFEN 600 MG TAB PO PRN ×3 (08:19→22:05)
[2016-12-28] MEDS: NICOTINE 21MG/24HR 1 EA TRANSDERMAL TD SCH (08:19)
[2016-12-28] MEDS: ACETAMINOPHEN TAB 650MG DOSE (2X325MG) PO PRN ×2 (12:13→20:28)
[2016-12-28] MEDS: ANBESOL GEL 10% TOP PRN ×2 (15:25→20:29)
[2016-12-28 18:00] VITALS: BP 128/76
--- NOTE | 2016-12-28 18:19 | IPN ---
DATE: 12/28/2016 TREATMENT: This is the 5th day of inpatient admission for this patient who was admitted after she presented with reports of depression, suicidal ideation, and severe anxiety. She has a history of multiple past admissions with similar presentations. She is seen today and her treatment reviewed. She reports today that she received news that her sister had . The patient was provided with supportive therapy, however she requested for a benzodiazepine, stating that it is the only intervention that is likely to help her cope. She was informed that she already is on clonazepam 2 mg three times daily and that no further benzodiazepine was required at this time. She became infuriated, left angrily, slamming the door and cursing. CURRENT MEDICATIONS: - Depakote 500 mg twice a day - paliperidone 6 mg at bedtime - clonazepam 2 mg three times a day - mirtazapine 50 mg at bedtime In addition, she is provided with group and activity therapies. OBSERVATION: Vital signs: Blood pressure 108/54, pulse 85, respirations 10, temperature 97.9. She iss noted to be dressed appropriately in [facility], her grooming is fair, no abnormal involuntary movement noted. Her speech is of normal volume, rate, and rhythm. Thought process is coherent and logical. No specific delusions is noted and no ideas of reference. She describes her mood as depressed and anxious. While she appears to be emotional and occasionally sobbing, no tear drop was noted. No reports of active thoughts of suicide or homicide. No medication related adverse events. ASSESSMENT: The patient currently remains with features notable for histrionic and borderline personality traits. This has been her diagnosis in the past and she also is noted to be quite impulsive, which is a notable risk in terms of her engaging in self-harmful behavior. PLAN: She will be continued on the current medications with ongoing reviews. Dosage adjustments as clinically indicated. Therapeutic programming will also be continue to be provided, with ongoing supportive therapy. CAR
[2016-12-28] MEDS: PALIPERIDONE 3 MG ER TAB (INVEGA) PO SCH (20:29)
[2016-12-28] MEDS: MIRTAZAPINE 15 MG ***SOLTAB PO SCH (22:03)
[2016-12-29] MEDS ORDERED: diphenhydrAMINE 50 MG CAP PO ONE ×2 (02:30→12:30)
[2016-12-29] MEDS: ACETAMINOPHEN TAB 650MG DOSE (2X325MG) PO PRN ×2 (03:14→20:37)
[2016-12-29 06:00] VITALS: BP 119/56
[2016-12-29] MEDS: CLINDAMYCIN 150 MG CAP PO SCH ×3 (08:54→20:36)
[2016-12-29] MEDS: clonazePAM 1 MG TAB PO SCH ×3 (08:54→20:36)
[2016-12-29] MEDS: NICOTINE 21MG/24HR 1 EA TRANSDERMAL TD SCH (08:54)
[2016-12-29] MEDS: IBUPROFEN 600 MG TAB PO PRN ×2 (08:54→15:23)
[2016-12-29] MEDS: DIVALPROEX 500MG *ER* TAB PO SCH ×2 (08:54→20:36)
[2016-12-29] MEDS: ANBESOL GEL 10% TOP PRN ×2 (08:55→20:35)
[2016-12-29 18:24] VITALS: BP 145/69
[2016-12-29] MEDS: PALIPERIDONE 3 MG ER TAB (INVEGA) PO SCH (20:36)
[2016-12-29] MEDS ORDERED: PALIPERIDONE 3 MG ER TAB (INVEGA) PO ONE (21:15)
[2016-12-29] MEDS: MIRTAZAPINE 15 MG ***SOLTAB PO SCH (21:50)
--- NOTE | 2016-12-29 21:55 | IPNPDOC ---
[facility] Progress Note Progress Note DATE OF SERVICE: 12/29/16 HISTORY: Patient is a 36-year-old female who has a history of multiple psychiatric admissions and reported wide mood swings at time of admission. Printed Circuit Board Reworker was called the patient's room today due to patient being agitated, throwing chairs, yelling at staff. Patient demanded benzodiazepine stating to rewriter that the existing dose of Klonopin 2 mg 3 times a day was not enough and she was going to require more medication if she is going to be discharged. Patient indicated she was upset over her sister's , felt inconsolable, refused alternative intervention strategies including non-benzo medications and staff therapeutic intervention. Patient presented as anxious, agitated, and depressed, denied suicidal and homicidal ideation, denied audiovisual hallucinations, was evasive when asked if she was having thoughts of wanting to hurt herself, however was able to agree to alert staff if she felt the urge becoming unmanageable. Patient expresses desire to be discharged, then informs rewriter she should be referred for long-term care. Patient is receptive to Invega dose increase, indicates balance of previous medication regimen including trazodone, gabapentin, and Haldol PRN were ineffective noting " nothing has worked." Was provided with Benadryl PRN which was effective as evidenced by patient being calmer, more engageable on follow-up. VITAL SIGNS: See below. NEW TEST RESULTS: No new results. Labs on admission indicated elevated WBCs ( within normal limits on recheck) and glucose, low AST and anion gap. Patient has surgical history of tubal ligation and UDS positive for cannabinoids HCG negative on admission EKG SINUS TACHYCARDIA NO CHANGE 09/13/14 BUT FOR FASTER HR CURRENT MEDICATIONS: See below. MENTAL STATUS EXAMINATION: Patient is a 36-year-old female who is agitated time of interaction, makes limited eye contact, appears disheveled, dressed in hospital clothing, ambulates with steady gait, and appears stated age Speech: Is rapid and pressured, less tangential, loud, coherent, spontaneous Language skills are intact. Thought processes including: Clear, goal-directed. Thought content: Generally rational, logical, angry, expresses frustration related to sister's , makes demand for benzo Abstract reasoning: Appears intact Description of associations: Generally intact, tangentiality at times Description of abnormal or psychotic thoughts: denies hallucinations but reports history, denies delusions, homicidal or suicidal ideation, and obsessions. Judgment: Poor Insight: Orientation to time, place and person. Recent and remote memory: Appears intact. Attention span and concentration: Limited. Language: Normal. Fund of knowledge: Appears adequate. Mood: "I'm frustrated and I need more Klonopin." Appears anxious, depressed, mood lability noted. Affect: Blunted, anxious, depressed, congruent with mood DIAGNOSES: Bipolar disorder, mixed, cannabis use disorder, rule out PTSD, history of polysubstance use disorder ASSESSMENT: Patient is 36-year-old female and mother, indicates her committed suicide 5 years ago, sister recently in a MVA. Patient indicates she had begun feeling better until sister's , notes today she does not feel medications are helping and is making request for increased Klonopin dose increase. Patient was informed additional Klonopin would not be appropriate, was offered other medication strategies which she initially dismissed, eventually agreed to take Benadryl which on follow-up appeared to be at least partially effective. Patient is agreeable to Invega dose increase, will also make PRN dose of Seroquel available to patient. On follow up patient and rewriter began discussion on reducing Klonopin, patient indicates she has reservations but will consider beginning taper. Patient denies suicidal and homicidal ideation and agrees to alert staff if she begins to experience symptoms, further denies urge to engage in self-injurious behavior. Patient is able to agree to alert staff if symptoms of anxiety and depression become unmanageable, or if suicidal ideation reemerges. Will monitor patient's response to medication regimen with plan to taper Klonopin as tolerated by patient. Will monitor for medication side effects and will evaluate patient safety, resolution of suicidal ideation, and discharge readiness. Patient indicates she plans to return home when prepared for discharge and extrusion die coordinator will initiate contact with [facility] counseling case manager to ensure that supportive services and outpatient psychiatric services are in place for patient at time of discharge. MANAGEMENT PLAN: Increase Invega to 9 mg po q hs. Initiate med trial Seroquel 50 mg po q 6 hours PRN agitation. Continue mirtazapine 15 mg po q hs, Depakote ER 500 mg po BID, Continue Klonopin 2 mg po TID and evaluate dose reduction tomorrow as tolerated by patient Maintain safety precautions Patient to attend groups and participate in unit programming to develop coping strategies Engage patient in discharge planning process and arrange meeting with support system to ensure safe discharge planning when appropriate Patient to follow up with PCM upon discharge TIME SPENT: 35 minutes Vital Signs Vital Signs Date Time Temp Pulse Resp B/P Pulse Ox O2 Delivery O2 Flow Rate FiO2 12/29/16 18:24 99.3 104 16 145/69 12/26/16 06:45 Room Air 12/24/16 04:11 97 Current Medications Current Medications Acetaminophen (Tylenol Tab) 650 mg Q6HP PRN PO HEADACHE or DISCOMFORT Last administered on 12/29/16 20:37; Start 12/23/16 at 23:30; Stop 01/22/17 at 23:29 Al Hydrox/Mg Hydrox/Simethicone (Mylanta) 30 ml Q4HP PRN PO HEARTBURN/ INDIGESTION; Start 12/23/16 at 23:30; Stop 01/22/17 at 23:29 Benzocaine (Anbesol Gel) QPPLY TO UPPER RT TOOTH AREA Q2HP PRN TOP PAIN Last administered on 12/29/16 20:35; Start 12/26/16 at 23:15; Stop 01/25/17 at 23:14 Clindamycin HCl (Cleocin) 300 mg TID PO Last administered on 12/29/16 20:36; Start 12/26/16 at 21:00; Stop 01/02/17 at 20:59 Clonazepam (KlonoPIN) 2 mg TID PO Last administered on 12/29/16 20:36; Start 12/24/16 at 16:00; Stop 12/31/16 at 15:59 Divalproex Sodium (Depakote Er) 500 mg BID PO Last administered on 12/29/16 20 :36; Start 12/26/16 at 09:00; Stop 01/25/17 at 08:59 Gabapentin (Neurontin) 100 mg QHS PO ; Start 12/23/16 at 21:00; Stop 12/24/16 at 12:58; Status DC Haloperidol (Haldol) 2 mg Q4HP PRN PO AGITATION Last administered on 12/24/16 09:09; Start 12/23/16 at 23:30; Stop 12/24/16 at 12:58; Status DC Home Med (Med Rec Complete!) ASDIRECTED XX ; Start 12/23/16 at 23:45; Stop at 23:52; Status DC Ibuprofen (Advil) 600 mg Q6HP PRN PO PAIN OR DISCOMFORT Last administered on 15:23; Start 12/26/16 at 13:45; Stop 01/25/17 at 13:44 Magnesium Hydroxide (Milk Of Magnesia) 30 ml DAILYPRN PRN PO CONSTIPATION; Start 12/23/16 at 23:30; Stop 01/22/17 at 23:29 Mirtazapine (Remeron Soltab) 15 mg QHS PO Last administered on 12/28/16 22 :03; Start 12/24/16 at 21:00; Stop 01/23/17 at 20:59 Nicotine (Nicoderm Cq 21mg) 1 patch DAILY TD Last administered on 12/29/16 08: 54; Start 12/24/16 at 09:00; Stop 01/23/17 at 08:59 Paliperidone (Invega) 3 mg QHS PO ; Start 12/23/16 at 21:00; Stop 12/24/16 at 12 :58; Status DC Paliperidone (Invega) 6 mg QHS PO Last administered on 12/29/16 20:36; Start 12/24/16 at 21:00; Stop 12/29/16 at 21:13; Status DC Paliperidone (Invega) 9 mg QHS PO ; Start 12/30/16 at 21:00; Stop 01/29/17 at 20 :59 Trazodone HCl (Desyrel) 100 mg QHSP PRN PO INSOMNIA; Start 12/23/16 at 23:30; Stop 12/24/16 at 12:58; Status DC Trazodone HCl (Desyrel) 200 mg QHSP PRN PO INSOMNIA; Start 12/24/16 at 13:00; Stop 01/23/17 at 12:59; Status Cancel Allergies Coded Allergies: Bee Venom (Verified Allergy, Severe, SOB, 01/06/13) No Known Drug Allergy (Verified Allergy, Unknown, 01/06/13) Awilda Holloway Dec 29, 2016 21:55
[2016-12-30 06:20] VITALS: BP 122/72
[2016-12-30] MEDS: clonazePAM 1 MG TAB PO SCH ×3 (08:13→20:00)
[2016-12-30] MEDS: DIVALPROEX 500MG *ER* TAB PO SCH ×2 (08:13→20:00)
[2016-12-30] MEDS: CLINDAMYCIN 150 MG CAP PO SCH ×3 (08:13→20:00)
[2016-12-30] MEDS: NICOTINE 21MG/24HR 1 EA TRANSDERMAL TD SCH (08:14)
[2016-12-30] MEDS: IBUPROFEN 600 MG TAB PO PRN ×2 (08:14→18:59)
--- NOTE | 2016-12-30 09:09 | IPNPDOC ---
[facility] Progress Note Progress Note DATE OF SERVICE: 12/30/16 HISTORY: Patient is a 36-year-old female who has a history of multiple psychiatric admissions and reported wide mood swings at time of admission. Weatherization And Housing Inspector met with patient in room this morning, patient was observed to be lying in bed, indicated she had slept better last night, reported improvement to symptoms of anxiety and depression, denied suicidal and homicidal ideation, denied audiovisual hallucinations, denied urge to engage in self-injurious behavior. Patient indicates she remains saddened by sister's , inquires as to discharge, verbalizes understanding of need to be stabilized on medications. Patient informs senior technical writer she is "not sure" if she is experiencing any benefit from recent invega dose increased, denies medication side effects. Patient makes request for benzodiazepine dose increase, declines discussion pertaining to anxiolytic options, and abruptly terminates interaction with senior technical writer and dismisses senior technical writer from room indicating she no longer wants to work with senior technical writer and wants to see psychiatrist. Patient was informed of procedure for requesting provider change. Patient presented with no signs of acute distress at time of interaction. VITAL SIGNS: See below. NEW TEST RESULTS: No new results. Labs on admission indicated elevated WBCs ( within normal limits on recheck) and glucose, low AST and anion gap. Patient has surgical history of tubal ligation and UDS positive for cannabinoids HCG negative on admission EKG SINUS TACHYCARDIA NO CHANGE 09/13/14 BUT FOR FASTER HR CURRENT MEDICATIONS: See below. MENTAL STATUS EXAMINATION: Patient is a 36-year-old female who is resting calmly in bed, makes limited eye contact, appears disheveled, dressed in hospital clothing, and appears stated age Speech: Is less pressured, less tangential, or normal volume, coherent, spontaneous Language skills are intact. Thought processes including: Clear, goal-directed. Thought content: Generally rational, logical, angry, expresses sadness related to sister's , makes request for benzo Abstract reasoning: Appears intact Description of associations: Generally intact, tangentiality at times Description of abnormal or psychotic thoughts: denies hallucinations but reports history, denies delusions, homicidal or suicidal ideation, and obsessions. Judgment: Poor Insight: Poor Orientation to time, place and person. Recent and remote memory: Appears intact. Attention span and concentration: Limited. Language: Normal. Fund of knowledge: Appears adequate. Mood: "Whatever, go away." Appears less anxious, less depressed, less mood lability noted. Affect: Blunted, congruent with mood DIAGNOSES: Bipolar disorder, mixed, cannabis use disorder, rule out PTSD, history of polysubstance use disorder ASSESSMENT: Patient is 36-year-old female and mother, indicates her committed suicide 5 years ago, sister recently in a MVA. Patient indicates she had begun feeling better until sister's . Patient has taken one dose of increased Invega, has not needed to utilize when necessary Seroquel as yet. Patient denies suicidal and homicidal ideation and agrees to alert staff if she begins to experience symptoms, further denies urge to engage in self-injurious behavior. Patient is able to agree to alert staff if symptoms of anxiety and depression become unmanageable, or if suicidal ideation reemerges. Will continue to monitor patient's response to medication regimen with plan to taper Klonopin as tolerated by patient. Will monitor for medication side effects and will evaluate patient safety, resolution of suicidal ideation, and discharge readiness. Patient indicates she plans to return home when prepared for discharge and interior design coordinator will initiate contact with [facility] pillowcase sewer to ensure that supportive services and outpatient psychiatric services are in place for patient at time of discharge. MANAGEMENT PLAN: Reduce Klonopin to 1 mg po TID with plan to continue taper as tolerated by patient. Continue Invega 9 mg po q hs, Depakote ER 500 mg po BID, Seroquel 50 mg po q 6 hours PRN agitation, mirtazapine 15 mg po q hs. Maintain safety precautions Patient to attend groups and participate in unit programming to develop coping strategies Engage patient in discharge planning process and arrange meeting with support system to ensure safe discharge planning when appropriate Patient to follow up with PCM upon discharge TIME SPENT: 35 minutes Vital Signs Vital Signs Date Time Temp Pulse Resp B/P Pulse Ox O2 Delivery O2 Flow Rate FiO2 12/30/16 06:20 97.2 76 18 122/72 Room Air 12/24/16 04:11 97 Current Medications Current Medications Acetaminophen (Tylenol Tab) 650 mg Q6HP PRN PO HEADACHE or DISCOMFORT Last administered on 12/29/16t 20:37; Start 12/23/16 at 23:30; Stop 01/22/17 at 23:29 Al Hydrox/Mg Hydrox/Simethicone (Mylanta) 30 ml Q4HP PRN PO HEARTBURN/ INDIGESTION; Start 12/23/16 at 23:30; Stop 01/22/17 at 23:29 Benzocaine (Anbesol Gel) QPPLY TO UPPER RT TOOTH AREA Q2HP PRN TOP PAIN Last administered on 12/29/16 20:35; Start 12/26/16 at 23:15; Stop 01/25/17 at 23:14 Clindamycin HCl (Cleocin) 300 mg TID PO Last administered on 12/30/16 08:13; Start 12/26/16 at 21:00; Stop 01/02/17 at 20:59 Clonazepam (KlonoPIN) 2 mg TID PO Last administered on 12/30/16 08:13; Start 12/24/16 at 16:00; Stop 12/31/16 at 15:59 Divalproex Sodium (Depakote Er) 500 mg BID PO Last administered on 12/30/16 08 :13; Start 12/26/16 at 09:00; Stop 01/25/17 at 08:59 Gabapentin (Neurontin) 100 mg QHS PO ; Start 12/23/16 at 21:00; Stop 12/24/16 at 12:58; Status DC Haloperidol (Haldol) 2 mg Q4HP PRN PO AGITATION Last administered on 12/24/16 09:09; Start 12/23/16 at 23:30; Stop 12/24/16 at 12:58; Status DC Home Med (Med Rec Complete!) ASDIRECTED XX ; Start 12/23/16 at 23:45; Stop at 23:52; Status DC Ibuprofen (Advil) 600 mg Q6HP PRN PO PAIN OR DISCOMFORT Last administered on 08:14; Start 12/26/16 at 13:45; Stop 01/25/17 at 13:44 Magnesium Hydroxide (Milk Of Magnesia) 30 ml DAILYPRN PRN PO CONSTIPATION; Start 12/23/16 at 23:30; Stop 01/22/17 at 23:29 Mirtazapine (Remeron Soltab) 15 mg QHS PO Last administered on 12/29/16 21 :50; Start 12/24/16 at 21:00; Stop 01/23/17 at 20:59 Nicotine (Nicoderm Cq 21mg) 1 patch DAILY TD Last administered on 12/30/16 08: 14; Start 12/24/16 at 09:00; Stop 01/23/17 at 08:59 Paliperidone (Invega) 3 mg QHS PO ; Start 12/23/16 at 21:00; Stop 12/24/16 at 12 :58; Status DC Paliperidone (Invega) 6 mg QHS PO Last administered on 12/29/16 20:36; Start 12/24/16 at 21:00; Stop 12/29/16 at 21:13; Status DC Paliperidone (Invega) 9 mg QHS PO ; Start 12/30/16 at 21:00; Stop 01/29/17 at 20 :59 Quetiapine Fumarate (SEROquel) 50 mg Q6HP PRN PO agitation; Start 12/30/16 at 03:30; Stop 01/29/17 at 03:29 Trazodone HCl (Desyrel) 100 mg QHSP PRN PO INSOMNIA; Start 12/23/16 at 23:30; Stop 12/24/16 at 12:58; Status DC Trazodone HCl (Desyrel) 200 mg QHSP PRN PO INSOMNIA; Start 12/24/16 at 13:00; Stop 01/23/17 at 12:59; Status Cancel Allergies Coded Allergies: Bee Venom (Verified Allergy, Severe, SOB, 01/06/13) No Known Drug Allergy (Verified Allergy, Unknown, 01/06/13) Awilda Holloway Dec 30, 2016 09:09
[2016-12-30] MEDS: QUEtiapine FUMARATE 50 MG TAB PO PRN ×2 (12:24→20:00)
[2016-12-30 18:00] VITALS: BP 142/80
[2016-12-30] MEDS: PALIPERIDONE 3 MG ER TAB (INVEGA) PO SCH (20:01)
[2016-12-30] MEDS: MIRTAZAPINE 15 MG ***SOLTAB PO SCH (21:24)
[2016-12-31 06:10] VITALS: BP 134/68
[2016-12-31] MEDS: NICOTINE 21MG/24HR 1 EA TRANSDERMAL TD SCH (08:35)
[2016-12-31] MEDS: CLINDAMYCIN 150 MG CAP PO SCH ×3 (08:35→20:47)
[2016-12-31] MEDS: DIVALPROEX 500MG *ER* TAB PO SCH ×2 (08:35→20:46)
[2016-12-31] MEDS: clonazePAM 1 MG TAB PO SCH ×3 (08:36→20:46)
[2016-12-31] MEDS: IBUPROFEN 600 MG TAB PO PRN ×2 (08:37→20:47)
[2016-12-31] MEDS: QUEtiapine FUMARATE 50 MG TAB PO PRN ×2 (11:52→20:46)
[2016-12-31 18:00] VITALS: BP 154/96
--- NOTE | 2016-12-31 20:31 | IPNPDOC ---
[facility] Progress Note Progress Note DATE OF SERVICE: 12/31/16 HISTORY: Patient is a 36-year-old female who has a history of multiple psychiatric admissions and reported wide mood swings at time of admission. Pool Installer met with patient in room this morning, patient was observed to be lying in bed, remains verbally hostile toward typewriter ribbon winder but is engageable today, agrees to meet with typewriter ribbon winder. Patient indicates she is sleeping better but was quick to note "I've only been on the Seroquel couple days and it may be making me groggy so I can't be discharged home on any medication that makes me groggy so we may need to work something out for me to go home with the Klonopin." Patient then informed typewriter ribbon winder she has been experiencing morning grogginess "for weeks," indicates symptoms preexisted admission to hospital. Patient denied experiencing anxiety or depression at time of interaction, denied suicidal and homicidal ideation, denied audiovisual hallucinations, and denied urge to engage in self-injurious behavior. Patient remains in agreement with Klonopin taper, was also informed that she will be undergoing lab work tonight to determine Depakote adjustment. Patient denies medication side effects, declines to respond when typewriter ribbon winder asks if medications are effective, continues to feels she needs benzodiazepine after discharge. Patient declined to respond questions pertaining to appetite, concentration and focus, and energy level. However, patient was observed attending groups, appeared to be laughing and joking with peers, participating well and was not a behavior management problem. Pool Installer also consulted with lean leader who indicated that patient had done well in group with no signs of acute distress. Addendum: Pool Installer was informed that patient's boyfriend has been making multiple phone calls to career coordinator demanding that patient be discharged on benzodiazepine, making threats to jenny if patient is not discharged with benzodiazepine. VITAL SIGNS: See below. NEW TEST RESULTS: No new results. Labs on admission indicated elevated WBCs which were within normal limits on recheck, and glucose, low AST and anion gap. Patient has surgical history of tubal ligation and UDS positive for cannabinoids HCG negative on admission EKG SINUS TACHYCARDIA NO CHANGE 09/13/14 BUT FOR FASTER HR, PA aware. CURRENT MEDICATIONS: See below. MENTAL STATUS EXAMINATION: Patient is a 36-year-old female who is resting calmly in bed, makes limited eye contact, appears disheveled, dressed in hospital clothing, and appears stated age Speech: Is of normal rate, rhythm, volume, coherent, spontaneous Language skills are intact. Thought processes including: Clear, goal-directed. Thought content: Generally rational, logical, demanding at times, expresses sadness related to sister's , makes request for benzo, paranoia Abstract reasoning: Appears intact Description of associations: Generally intact, no tangentiality Description of abnormal or psychotic thoughts: denies hallucinations but reports history, denies delusions, homicidal or suicidal ideation, and obsessions. Judgment: Poor Insight: Poor Orientation to time, place and person. Recent and remote memory: Appears intact. Attention span and concentration: Limited. Language: Normal. Fund of knowledge: Appears adequate. Mood: "Fine right now." Appears less anxious, less depressed, less mood lability noted. Affect: Blunted DIAGNOSES: Bipolar disorder, mixed, cannabis use disorder, rule out PTSD, history of polysubstance use disorder Review of EMR indicated diagnoses from previous hospital admissions to include: Adjustment disorder, borderline personality traits, antisocial personality traits, multiple personality traits, rule out secondary gain/malingering. ASSESSMENT: Patient is 36-year-old female, indicates her committed suicide 5 years ago, sister recently in a MVA. Patient indicates she had begun feeling better until sister's . Patient has utilized PRN Seroquel 1 today with good effect observed by staff. Patient denies medication side effects. Patient denies suicidal and homicidal ideation and agrees to alert staff if she begins to experience symptoms, further denies urge to engage in self-injurious behavior. Patient is able to agree to alert staff if symptoms of anxiety and depression become unmanageable, or if suicidal ideation reemerges. Will continue to monitor patient's response to medication regimen with plan to taper Klonopin as tolerated by patient. Depakote level has been ordered with plan to titrate. Will monitor for medication side effects and will evaluate patient safety, resolution of suicidal ideation, and discharge readiness. Patient indicates she plans to return home when prepared for discharge and career coordinator will initiate contact with [facility] case manager to ensure that supportive services and outpatient psychiatric services are in place for patient at time of discharge. Patient is refusing to sign an HERON for AOT. MANAGEMENT PLAN: Reduce Klonopin to 1 mg po BID with plan to continue taper as tolerated by patient. Continue Invega 9 mg po q hs, Depakote ER 500 mg po BID with plan to titrate after labs. Continue Seroquel 50 mg po q 6 hours PRN agitation, mirtazapine 15 mg po q hs. Maintain safety precautions Patient to attend groups and participate in unit programming to develop coping strategies Engage patient in discharge planning process and arrange meeting with support system to ensure safe discharge planning when appropriate Patient to follow up with PCM upon discharge TIME SPENT: 35 minutes Vital Signs Vital Signs Date Time Temp Pulse Resp B/P Pulse Ox O2 Delivery O2 Flow Rate FiO2 12/31/16 06:10 97.5 83 14 134/68 12/30/16 06:20 Room Air Laboratory Data 24H Labs Laboratory Tests 2 12/31/16 18:45: Valproic Acid (Depakene) Level 62.6 Current Medications Current Medications Acetaminophen (Tylenol Tab) 650 mg Q6HP PRN PO HEADACHE or DISCOMFORT Last administered on 12/29/16 20:37; Start 12/23/16 at 23:30; Stop 01/22/17 at 23:29 Al Hydrox/Mg Hydrox/Simethicone (Mylanta) 30 ml Q4HP PRN PO HEARTBURN/ INDIGESTION; Start 12/23/16 at 23:30; Stop 01/22/17 at 23:29 Benzocaine (Anbesol Gel) QPPLY TO UPPER RT TOOTH AREA Q2HP PRN TOP PAIN Last administered on 12/29/16 20:35; Start 12/26/16 at 23:15; Stop 01/25/17 at 23:14 Clindamycin HCl (Cleocin) 300 mg TID PO Last administered on 12/31/16 16:21; Start 12/26/16 at 21:00; Stop 01/02/17 at 20:59 Clonazepam (KlonoPIN) 1 mg BID PO ; Start 12/31/16 at 21:00; Stop 01/07/17 at 20: 59 Clonazepam (KlonoPIN) 1 mg TID PO Last administered on 12/31/16 16:21; Start 12/30/16 at 16:00; Stop 12/31/16 at 19:52; Status DC Clonazepam (KlonoPIN) 2 mg TID PO Last administered on 12/30/16 08:13; Start 12/24/16 at 16:00; Stop 12/30/16 at 14:06; Status DC Divalproex Sodium (Depakote Er) 500 mg BID PO Last administered on 12/31/16 08 :35; Start 12/26/16 at 09:00; Stop 01/25/17 at 08:59 Gabapentin (Neurontin) 100 mg QHS PO ; Start 12/23/16 at 21:00; Stop 12/24/16 at 12:58; Status DC Haloperidol (Haldol) 2 mg Q4HP PRN PO AGITATION Last administered on 12/24/16 09:09; Start 12/23/16 at 23:30; Stop 12/24/16 at 12:58; Status DC Home Med (Med Rec Complete!) ASDIRECTED XX ; Start 12/23/16 at 23:45; Stop at 23:52; Status DC Ibuprofen (Advil) 600 mg Q6HP PRN PO PAIN OR DISCOMFORT Last administered on 08:37; Start 12/26/16 at 13:45; Stop 01/25/17 at 13:44 Magnesium Hydroxide (Milk Of Magnesia) 30 ml DAILYPRN PRN PO CONSTIPATION; Start 12/23/16 at 23:30; Stop 01/22/17 at 23:29 Mirtazapine (Remeron Soltab) 15 mg QHS PO Last administered on 12/30/16 21 :24; Start 12/24/16 at 21:00; Stop 01/23/17 at 20:59 Nicotine (Nicoderm Cq 21mg) 1 patch DAILY TD Last administered on 12/31/16 08: 35; Start 12/24/16 at 09:00; Stop 01/23/17 at 08:59 Paliperidone (Invega) 3 mg QHS PO ; Start 12/23/16 at 21:00; Stop 12/24/16 at 12 :58; Status DC Paliperidone (Invega) 6 mg QHS PO Last administered on 12/29/16 20:36; Start 12/24/16 at 21:00; Stop 12/29/16 at 21:13; Status DC Paliperidone (Invega) 9 mg QHS PO Last administered on 12/30/16 20:01; Start 12/30/16 at 21:00; Stop 01/29/17 at 20:59 Quetiapine Fumarate (SEROquel) 50 mg Q6HP PRN PO agitation Last administered on 12/31/16t 11:52; Start 12/30/16 at 03:30; Stop 01/29/17 at 03:29 Trazodone HCl (Desyrel) 100 mg QHSP PRN PO INSOMNIA; Start 12/23/16 at 23:30; Stop 12/24/16 at 12:58; Status DC Trazodone HCl (Desyrel) 200 mg QHSP PRN PO INSOMNIA; Start 12/24/16 at 13:00; Stop 01/23/17 at 12:59; Status Cancel Allergies Coded Allergies: Bee Venom (Verified Allergy, Severe, SOB, 01/06/13) No Known Drug Allergy (Verified Allergy, Unknown, 01/06/13) Awilda Holloway Dec 31, 2016 20:31
[2016-12-31] MEDS: PALIPERIDONE 3 MG ER TAB (INVEGA) PO SCH (20:46)
[2016-12-31] MEDS: MIRTAZAPINE 15 MG ***SOLTAB PO SCH (22:09)
[2017-01-01 06:34] VITALS: BP 127/73
[2017-01-01] MEDS: DIVALPROEX 500MG *ER* TAB PO SCH (09:08)
[2017-01-01] MEDS: clonazePAM 1 MG TAB PO SCH (09:08)
[2017-01-01] MEDS: IBUPROFEN 600 MG TAB PO PRN ×2 (09:08→16:46)
[2017-01-01] MEDS: CLINDAMYCIN 150 MG CAP PO SCH ×3 (09:09→20:36)
[2017-01-01] MEDS: NICOTINE 21MG/24HR 1 EA TRANSDERMAL TD SCH (09:09)
[2017-01-01] MEDS ORDERED: DIVALPROEX 250MG *ER* TAB PO ONE (11:00)
--- NOTE | 2017-01-01 14:06 | IPNPDOC ---
[facility] Progress Note Progress Note DATE OF SERVICE: 01/01/17 HISTORY: Patient is a 36-year-old female who has a history of multiple psychiatric admissions and reported wide mood swings at time of admission. Paper Latcher met with patient in office today. Patient indicates she continues to feel moderately anxious and "a lot," depressed, informs investment underwriter she is "hearing voices," and adds she feels she needs an "lobotomy." Patient denies current suicidal and homicidal ideation, denies urge to engage in self-injurious behavior at time of interaction. Patient reiterates previous medication regimen was ineffective, then makes request for restart of gabapentin (per med rec was was taking 100 mg q hs) "because it stabilizes my mood." Paper Latcher discusses increasing Depakote in effort to really stabilize mood, patient is in agreement with increasing Depakote and no gabapentin restart. Patient indicates she is sleeping better with mirtazapine, indicates Seroquel PRN "helps." Patient remains in agreement with Klonopin taper, denies medication side effects, provides evasive response when investment underwriter asks if medications are effective. Patient denied challenges to appetite, or concentration and focus, noted energy level is low. Patient has been attending groups, has been observed socializing and laughing with peers in lounge and a groups, has presented with no behavior management problem. Potential risks and medication side effects were reviewed with patient today who verbalized understanding. Patient states she has had tubal ligation and therefore there is no risk of while taking medications. Addendum: Paper Latcher was informed that patient's boyfriend has been making multiple phone calls to group sales coordinator demanding that patient be discharged on benzodiazepine, making threats to jenny if patient is not discharged with benzodiazepine. VITAL SIGNS: See below. NEW TEST RESULTS: No new results. Labs on admission indicated elevated WBCs which were within normal limits on recheck, and glucose, low AST and anion gap. Patient has surgical history of tubal ligation and UDS positive for cannabinoids HCG negative on admission EKG SINUS TACHYCARDIA NO CHANGE 09/13/14 BUT FOR FASTER HR, PA aware. Depakote level 12/31/12 62.6 CURRENT MEDICATIONS: See below. MENTAL STATUS EXAMINATION: Patient is a 36-year-old female who is up out of bed, engageable, makes fair eye contact, presents with adequate personal hygiene, dressed in hospital clothing, and appears stated age Speech: Is of normal rate, rhythm, volume, coherent, spontaneous Language skills are intact. Thought processes including: Clear, goal-directed. Thought content: Rational and logical at times, demanding at times, reports experiencing and judgment audio hallucinations, expresses sadness related to sister's and 's suicide, no paranoia noted, does not appear to be responding to internal stimuli Abstract reasoning: Appears intact Description of associations: Generally intact, no tangentiality Description of abnormal or psychotic thoughts: denies current hallucinations but experiencing early in the day, does not exhibit delusional thinking, denies current homicidal or suicidal ideation, and obsessions, does not appear to be preoccupied Judgment: Poor Insight: Poor Orientation to time, place and person. Recent and remote memory: Appears intact. Attention span and concentration: Limited. Language: Normal. Fund of knowledge: Appears adequate. Mood: "I'm sad, I just want to feel normal and not have to take medication." Appears less anxious, less depressed, mood lability noted. Affect: Blunted but brightens at times DIAGNOSES: Bipolar disorder, mixed, cannabis use disorder, rule out PTSD, history of polysubstance use disorder Review of EMR indicated diagnoses from previous hospital admissions to include: Adjustment disorder, borderline personality traits, antisocial personality traits, multiple personality traits, rule out secondary gain/malingering. ASSESSMENT: Patient is 36-year-old female, reiterates today she watched her committ suicide 5 years ago (entry from previous hospital admission contradicts patient reports; states patient was not in vicinity at time of 's , also indicates history of other false reports of trauma), states sister recently in a MVA. Patient provides conflicting information on medication effectiveness, is agreeable to Depakote dose increase in effort to further stabilize mood, denies medication side effects. Patient has been encouraged to utilize PRN Seroquel, states she has not needed to use PRN medication today as yet. Patient denies current suicidal and homicidal ideation and agrees to alert staff if she begins to experience symptoms, further denies current urge to engage in self-injurious behavior. Patient is able to agree to alert staff if symptoms of anxiety and depression become unmanageable, or if suicidal ideation/SIB reemerges. Will continue to monitor patient's response to medication regimen and will continue to taper Klonopin as tolerated by patient. Will monitor for medication side effects and will evaluate patient safety, resolution of suicidal ideation, and discharge readiness. Though patient does not answer investment underwriter's question directly regarding invega effectiveness, she indicates she is interested in Invega Sustenna, will evaluate if appropriateness. Patient indicates she plans to return home when prepared for discharge and group sales coordinator will initiate contact with [facility] medical case worker to ensure that supportive services and outpatient psychiatric services are in place for patient at time of discharge. Patient continues to refuse to sign an HERON for AOT. MANAGEMENT PLAN: Reduce Klonopin to 1 mg po q day x 2 days (Wednesday and Wednesday ) then stop if tolerated by patient. Continue Invega 9 mg po q hs, Increase Depakote ER to 750 mg po BID. Continue Seroquel 50 mg po q 6 hours PRN agitation , mirtazapine 15 mg po q hs. Depakote level ordered for 01/04/17 Maintain safety precautions Patient to attend groups and participate in unit programming to develop coping strategies Engage patient in discharge planning process and arrange meeting with support system to ensure safe discharge planning when appropriate Patient to follow up with PCM upon discharge TIME SPENT: 35 minutes Vital Signs Vital Signs Date Time Temp Pulse Resp B/P Pulse Ox O2 Delivery O2 Flow Rate FiO2 01/01/17 06:34 98.6 80 18 127/73 Room Air Laboratory Data 24H Labs Laboratory Tests 2 12/31/16 18:45: Valproic Acid (Depakene) Level 62.6 Current Medications Current Medications Acetaminophen (Tylenol Tab) 650 mg Q6HP PRN PO HEADACHE or DISCOMFORT Last administered on 12/29/16 20:37; Start 12/23/16 at 23:30; Stop 01/22/17 at 23:29 Al Hydrox/Mg Hydrox/Simethicone (Mylanta) 30 ml Q4HP PRN PO HEARTBURN/ INDIGESTION; Start 12/23/16 at 23:30; Stop 01/22/17 at 23:29 Benzocaine (Anbesol Gel) QPPLY TO UPPER RT TOOTH AREA Q2HP PRN TOP PAIN Last administered on 12/29/16 20:35; Start 12/26/16 at 23:15; Stop 01/25/17 at 23:14 Clindamycin HCl (Cleocin) 300 mg TID PO Last administered on 01/01/17 09:09; Start 12/26/16 at 21:00; Stop 01/04/17 at 20:59 Clonazepam (KlonoPIN) 1 mg BID PO Last administered on 01/01/17 09:08; Start 12/31/16 at 21:00; Stop 01/01/17 at 13:13; Status DC Clonazepam (KlonoPIN) 1 mg BID PO ; Start 01/01/17 at 21:00; Stop 01/01/17 at 22 :00 Clonazepam (KlonoPIN) 1 mg DAILY PO ; Start 01/02/17 at 09:00; Stop 01/03/17 at 10 :00 Clonazepam (KlonoPIN) 1 mg TID PO Last administered on 12/31/16 16:21; Start 12/30/16 at 16:00; Stop 12/31/16 at 19:52; Status DC Clonazepam (KlonoPIN) 2 mg TID PO Last administered on 12/30/16 08:13; Start 12/24/16 at 16:00; Stop 12/30/16 at 14:06; Status DC Divalproex Sodium (Depakote Er) 500 mg BID PO Last administered on 01/01/17 09 :08; Start 12/26/16 at 09:00; Stop 01/01/17 at 10:53; Status DC Divalproex Sodium (Depakote Er) 750 mg BID PO ; Start 01/01/17 at 21:00; Stop at 20:59 Gabapentin (Neurontin) 100 mg QHS PO ; Start 12/23/16 at 21:00; Stop 12/24/16 at 12:58; Status DC Haloperidol (Haldol) 2 mg Q4HP PRN PO AGITATION Last administered on 12/24/16 09:09; Start 12/23/16 at 23:30; Stop 12/24/16 at 12:58; Status DC Home Med (Med Rec Complete!) ASDIRECTED XX ; Start 12/23/16 at 23:45; Stop at 23:52; Status DC Ibuprofen (Advil) 600 mg Q6HP PRN PO PAIN OR DISCOMFORT Last administered on 09:08; Start 12/26/16 at 13:45; Stop 01/25/17 at 13:44 Magnesium Hydroxide (Milk Of Magnesia) 30 ml DAILYPRN PRN PO CONSTIPATION; Start 12/23/16 at 23:30; Stop 01/22/17 at 23:29 Mirtazapine (Remeron Soltab) 15 mg QHS PO Last administered on 12/31/16 22 :09; Start 12/24/16 at 21:00; Stop 01/23/17 at 20:59 Nicotine (Nicoderm Cq 21mg) 1 patch DAILY TD Last administered on 01/01/17 09: 09; Start 12/24/16 at 09:00; Stop 01/23/17 at 08:59 Paliperidone (Invega) 3 mg QHS PO ; Start 12/23/16 at 21:00; Stop 12/24/16 at 12 :58; Status DC Paliperidone (Invega) 6 mg QHS PO Last administered on 12/29/16 20:36; Start 12/24/16 at 21:00; Stop 12/29/16 at 21:13; Status DC Paliperidone (Invega) 9 mg QHS PO Last administered on 12/31/16 20:46; Start 12/30/16 at 21:00; Stop 01/29/17 at 20:59 Quetiapine Fumarate (SEROquel) 50 mg Q6HP PRN PO agitation Last administered on 12/31/16 20:46; Start 12/30/16 at 03:30; Stop 01/29/17 at 03:29 Trazodone HCl (Desyrel) 100 mg QHSP PRN PO INSOMNIA; Start 12/23/16 at 23:30; Stop 12/24/16 at 12:58; Status DC Trazodone HCl (Desyrel) 200 mg QHSP PRN PO INSOMNIA; Start 12/24/16 at 13:00; Stop 01/23/17 at 12:59; Status Cancel Allergies Coded Allergies: Bee Venom (Verified Allergy, Severe, SOB, 01/06/13) No Known Drug Allergy (Verified Allergy, Unknown, 01/06/13) Awilda Holloway Jan 01, 2017 14:06
[2017-01-01] MEDS: QUEtiapine FUMARATE 50 MG TAB PO PRN (16:07)
[2017-01-01 18:00] VITALS: BP 142/100
[2017-01-01] MEDS: PALIPERIDONE 3 MG ER TAB (INVEGA) PO SCH (20:36)
[2017-01-01] MEDS: DIVALPROEX 250MG *ER* TAB PO SCH (20:37)
[2017-01-01] MEDS: ACETAMINOPHEN TAB 650MG DOSE (2X325MG) PO PRN (20:38)
[2017-01-01] MEDS ORDERED: clonazePAM 1 MG TAB PO SCH (21:00)
[2017-01-01] MEDS: ANBESOL GEL 10% TOP PRN (21:25)
[2017-01-01] MEDS: MIRTAZAPINE 15 MG ***SOLTAB PO SCH (22:19)
[2017-01-02 06:00] VITALS: BP 109/70
[2017-01-02] MEDS: ANBESOL GEL 10% TOP PRN ×2 (08:20→20:05)
[2017-01-02] MEDS: CLINDAMYCIN 150 MG CAP PO SCH ×3 (08:20→20:04)
[2017-01-02] MEDS: clonazePAM 1 MG TAB PO SCH (08:20)
[2017-01-02] MEDS: IBUPROFEN 600 MG TAB PO PRN ×3 (08:20→23:29)
[2017-01-02] MEDS: DIVALPROEX 250MG *ER* TAB PO SCH ×2 (08:21→20:05)
[2017-01-02] MEDS: NICOTINE 21MG/24HR 1 EA TRANSDERMAL TD SCH (08:21)
[2017-01-02] MEDS: ACETAMINOPHEN TAB 650MG DOSE (2X325MG) PO PRN ×2 (14:06→20:05)
[2017-01-02] MEDS: QUEtiapine FUMARATE 50 MG TAB PO PRN (14:06)
[2017-01-02 18:00] VITALS: BP 145/88
[2017-01-02] MEDS: PALIPERIDONE 3 MG ER TAB (INVEGA) PO SCH (20:04)
[2017-01-02] MEDS: MIRTAZAPINE 15 MG ***SOLTAB PO SCH (23:29)
[2017-01-03 06:38] VITALS: BP 105/53
[2017-01-03] MEDS: CLINDAMYCIN 150 MG CAP PO SCH ×3 (09:44→20:44)
[2017-01-03] MEDS: clonazePAM 1 MG TAB PO SCH (09:44)
[2017-01-03] MEDS: IBUPROFEN 600 MG TAB PO PRN ×2 (09:44→16:06)
[2017-01-03] MEDS: NICOTINE 21MG/24HR 1 EA TRANSDERMAL TD SCH (09:44)
[2017-01-03] MEDS: DIVALPROEX 250MG *ER* TAB PO SCH ×2 (09:44→20:45)
[2017-01-03 18:00] VITALS: BP 130/68
[2017-01-03] MEDS: PALIPERIDONE 3 MG ER TAB (INVEGA) PO SCH (20:44)
[2017-01-03] MEDS: ACETAMINOPHEN TAB 650MG DOSE (2X325MG) PO PRN (20:44)
[2017-01-03] MEDS: MIRTAZAPINE 15 MG ***SOLTAB PO SCH (20:45)
[2017-01-03] MEDS: QUEtiapine FUMARATE 50 MG TAB PO PRN (20:45)
[2017-01-03] MEDS: ANBESOL GEL 10% TOP PRN (20:46)
[2017-01-04 06:51] VITALS: BP 104/59
[2017-01-04 07:59] LABS: ALBUMIN 2.9 GM/DL (3.2-5.2); ALKALINE PHOSPHATASE 56 U/L (45-117); ALT/SGPT 40 U/L (12-78); ANION GAP 7 MEQ/L (8-16); AST/SGOT 19 U/L (15-37); BILIRUBIN,TOTAL < 0.1 MG/DL (0.2-1.0); BLOOD UREA NITROGEN 12 MG/DL (7-18); CALCIUM LEVEL 8.3 MG/DL (8.5-10.1); CARBON DIOXIDE LEVEL 28 MEQ/L (21-32); CHLORIDE LEVEL 103 MEQ/L (98-107); CREATININE FOR GFR 0.61 MG/DL (0.55-1.02); GLOMERULAR FILTRATION RATE > 60.0 (>60); GLUCOSE, FASTING 100 MG/DL (70-105); POTASSIUM SERUM 4.7 MEQ/L (3.5-5.1); SODIUM LEVEL 138 MEQ/L (136-145); TOTAL PROTEIN 5.8 GM/DL (6.4-8.2)
[2017-01-04] MEDS: NICOTINE 21MG/24HR 1 EA TRANSDERMAL TD SCH (09:33)
[2017-01-04] MEDS: DIVALPROEX 250MG *ER* TAB PO SCH ×2 (09:33→20:33)
[2017-01-04] MEDS: CLINDAMYCIN 150 MG CAP PO SCH ×2 (09:33→16:08)
--- NOTE | 2017-01-04 13:30 | IPNPDOC ---
Subjective Date Seen The patient was seen on 01/04/17. Subjective Chief Complaint/HPI The patient is a 36-year-old female admitted with a reason for visit of Unspecified Depressive Disorder. Events since last encounter Requested to evaluate Pt for LE edema. Pt with no concerns. Pt states has noticed some edema in feet. Has been using more NSAID than usual for tooth pain. no other concerns Pulmonary: Denies: Cough, Dyspnea Cardiovascular: Denies: Chest Pain, Lt Headedness, Orthopnea, Palpitations, Paroxysmal Noc. Dyspnea Gastrointestinal: Denies: Abdominal Pain, Constipation, Diarrhea, Nausea, Vomiting Genitourinary: Denies: Dysuria, Frequency, Incontinence, Retention Objective Physical Examination General Exam: Positive: Alert Eye Exam: Positive: PERRLA Chest Exam: Positive: Clear to auscultation, Normal air movement Heart Exam: Positive: Normal S1, Normal S2, Rate Normal, Regular Rhythm, Negative: Murmurs, Rubs Extremity Exam: Positive: Edema (trace pedal. ), Negative: Clubbing, Cyanosis, Normal pulses, Other (no warmth, no cording, no erythema, neg Homans b/l), Swelling, Tenderness Assessment /Plan Problems (1) Edema Status: Acute Problem Text: * low Na diet * elevate Legs when able * Apply TEDS if OK with attending. * Update CBC/CMP. * Monitor. (2) Tooth pain Status: Acute Response to Treatment: Improving Problem Text: * pt finishing course of Clindamycin * Tyl/Ibuprofen prn * anbesol as needed. * Outpt f/u with dental provider. Plan/VTE VTE Prophylaxis Ordered?: No (ambulatory) VS, I&O, 24H, Fishbone Vital Signs/I&O Vital Signs Date Time Temp Pulse Resp B/P Pulse Ox O2 Delivery O2 Flow Rate FiO2 01/04/17 06:51 99.1 74 16 104/59 01/01/17 06:34 Room Air Laboratory Data 24H LABS Laboratory Tests 2 01/04/17 06:30: Blood Urea Nitrogen 12, Creatinine 0.61, Sodium Level 138, Potassium Level 4.7, Chloride Level 103, Carbon Dioxide Level 28, Calcium Level 8.3L, Aspartate Amino Transf (AST/SGOT) 19, Alanine Aminotransferase (ALT/SGPT) 40, Alkaline Phosphatase 56, Total Bilirubin < 0.1L, Total Protein 5.8L, Albumin 2.9L, Albumin/Globulin Ratio 1.00, Anion Gap 7L, Glomerular Filtration Rate > 60.0, Valproic Acid (Depakene) Level 72.0 CBC/BMP Laboratory Tests 01/04/17 06:30 Calcium Level 8.3 L, Aspartate Amino Transf (AST/SGOT) 19, Alanine Aminotransferase (ALT/SGPT) 40, Alkaline Phosphatase 56, Total Bilirubin < 0.1 L , Total Protein 5.8 L, Albumin 2.9 L Alba Flaherty Jan 04, 2017 13:30
[2017-01-04] MEDS: QUEtiapine FUMARATE 50 MG TAB PO PRN (16:08)
[2017-01-04 18:00] VITALS: BP 116/59
--- NOTE | 2017-01-04 19:36 | IPNPDOC ---
[facility] Progress Note Progress Note DATE OF SERVICE: 01/04/17 HISTORY: Patient is a 36-year-old female who has a history of multiple psychiatric admissions and reported wide mood swings at time of admission. Computer Help Desk Specialist met with patient in office today. Patient indicates recent dose change to Depakote is effective, states she feels her mood is level, denies symptoms of agitation, irritability, impulsivity, and mood lability, and makes request to be discharged home. Patient denies medication side effects. Patient informs blurb writer that she is experiencing edema to lower legs bilaterally, indicates symptoms began last night. Computer Help Desk Specialist informed patient that PA would be made aware and asked to evaluate. Patient denies symptoms of anxiety and depression, denies suicidal and homicidal ideation, denies audiovisual hallucinations, denies urge to engage in self-injurious behavior. Patient has been utilizing Seroquel PRN approximately 1 time per day and indicates PRN is effective. Patient has completed Klonopin taper, denies symptoms of craving or withdrawal, indicates she feels "fine" without the benzodiazepine medication. Patient makes no request for additional medications, states she feels current medication regimen is addressing all of her psychiatric needs, adds she feels prepared to discharge and participate in outpatient treatment. Medication compliance was again addressed with patient who verbalizes understanding. Patient denied challenges to appetite, or concentration and focus, noted energy level is low. Patient has been attending groups, has been observed socializing and laughing with peers in lounge and a groups, has presented with no behavior management problem. Potential risks and medication side effects have been reviewed with patient who verbalized understanding. Patient states she has had tubal ligation and therefore there is no risk of while taking medications. VITAL SIGNS: See below. NEW TEST RESULTS: New labs have been ordered in light of patient's lower extremity edema, PA is monitoring. Labs on admission indicated elevated WBCs which were within normal limits on recheck, and glucose, low AST and anion gap. Patient has surgical history of tubal ligation and UDS positive for cannabinoids HCG negative on admission EKG SINUS TACHYCARDIA NO CHANGE 09/13/14 BUT FOR FASTER HR, PA aware. Depakote level 12/31/16 62.6 Depakote level on 01/04/17 72.0 CURRENT MEDICATIONS: See below. MENTAL STATUS EXAMINATION: Patient is a 36-year-old female who is observed to be lying in bed, is engageable, makes improved eye contact, presents with adequate personal hygiene , dressed in hospital clothing, and appears stated age Speech: Is of normal rate, rhythm, volume, coherent, spontaneous Language skills are intact. Thought processes including: Clear, goal-directed. Thought content: Rational and logical, denies audiovisual hallucinations, denies suicidal and homicidal ideation, no paranoia or delusional thinking, no symptoms of psychosis noted or reported, does not appear to be responding to internal stimuli Abstract reasoning: Appears intact Description of associations: Intact Description of abnormal or psychotic thoughts: denies audiovisual hallucinations and indicates she has not experienced "for several days," does not exhibit delusional thinking, denies current homicidal or suicidal ideation, and obsessions, does not appear to be preoccupied Judgment: Fair, has improved during treatment Insight: Limited, has improved during treatment Orientation to time, place and person. Recent and remote memory: Appears intact. Attention span and concentration: Adequate Language: Normal. Fund of knowledge: Appears adequate. Mood: "I'm feeling much better, no depression and I'm not agitated anymore." Patient denies depression and anxiety, no mood lability noted. Affect: Constricted, but brightens, congruent with mood DIAGNOSES: Bipolar disorder, mixed, cannabis use disorder, rule out PTSD, history of polysubstance use disorder Review of EMR indicated diagnoses from previous hospital admissions to include: Adjustment disorder, borderline personality traits, antisocial personality traits, multiple personality traits, rule out secondary gain/malingering. ASSESSMENT: Patient is 36-year-old female, reiterates today she watched her committ suicide 5 years ago (entry from previous hospital admission contradicts patient reports; states patient was not in vicinity at time of 's , also indicates history of other false reports of trauma), states sister recently in a MVA. Patient today states decisively that current medication regimen is effective and she denies medication side effects. Klonopin taper was completed and patient denies symptoms of craving or withdrawal, indicates PRN Seroquel is effective when needed. Patient denies current suicidal and homicidal ideation and agrees to alert staff if symptoms return, further denies urge to engage in self-injurious behavior. Patient is able to agree to alert staff if symptoms of anxiety and depression become unmanageable, or if suicidal ideation/SIB reemerges. Will continue to monitor patient's response to medication and monitor connection between edema in psychotropic medication regimen. Will also monitor for medication side effects and will evaluate patient safety, resolution of suicidal ideation, and discharge readiness. Patient states she remains interested in Invega Sustenna, notes she wants to pursue with outpatient provider once further stabilized on medications. Patient is requesting discharge, is aware discharge may occur tomorrow if she is stable on medications with no side effects. Lab work has been ordered by PA for evaluation purposes. Patient reiterates she plans to return home when prepared for discharge and community sports coordinator indicates that patient has appointment with [facility] therapist tomorrow afternoon at 14:00 and has appointment with EREN on at 13:00. Patient continues to refuse to sign an HERON for AOT. MANAGEMENT PLAN: Continue Invega 9 mg po q hs, Depakote ER 750 mg po BID, Seroquel 50 mg po q 6 hours PRN agitation, and mirtazapine 15 mg po q hs. Follow-up with PA in morning regarding lower extremity edema Maintain safety precautions Patient to attend groups and participate in unit programming to develop coping strategies Engage patient in discharge planning process and arrange meeting with support system to ensure safe discharge planning when appropriate Patient to follow up with PCM upon discharge TIME SPENT: 35 minutes Vital Signs Vital Signs Date Time Temp Pulse Resp B/P Pulse Ox O2 Delivery O2 Flow Rate FiO2 01/04/17 18:00 99.0 90 18 116/59 01/01/17 06:34 Room Air Laboratory Data 24H Labs Laboratory Tests 2 01/04/17 06:30: Blood Urea Nitrogen 12, Creatinine 0.61, Sodium Level 138, Potassium Level 4.7, Chloride Level 103, Carbon Dioxide Level 28, Calcium Level 8.3L, Aspartate Amino Transf (AST/SGOT) 19, Alanine Aminotransferase (ALT/SGPT) 40, Alkaline Phosphatase 56, Total Bilirubin < 0.1L, Total Protein 5.8L, Albumin 2.9L, Albumin/Globulin Ratio 1.00, Anion Gap 7L, Glomerular Filtration Rate > 60.0, Valproic Acid (Depakene) Level 72.0 CBC/BMP Laboratory Tests 01/04/17 06:30 Calcium Level 8.3 L, Aspartate Amino Transf (AST/SGOT) 19, Alanine Aminotransferase (ALT/SGPT) 40, Alkaline Phosphatase 56, Total Bilirubin < 0.1 L , Total Protein 5.8 L, Albumin 2.9 L Current Medications Current Medications Acetaminophen (Tylenol Tab) 650 mg Q6HP PRN PO HEADACHE or DISCOMFORT Last administered on 01/03/17 20:44; Start 12/23/16 at 23:30; Stop 01/22/17 at 23:29 Al Hydrox/Mg Hydrox/Simethicone (Mylanta) 30 ml Q4HP PRN PO HEARTBURN/ INDIGESTION; Start 12/23/16 at 23:30; Stop 01/22/17 at 23:29 Benzocaine (Anbesol Gel) QPPLY TO UPPER RT TOOTH AREA Q2HP PRN TOP PAIN Last administered on 01/03/17 20:46; Start 12/26/16 at 23:15; Stop 01/25/17 at 23:14 Clindamycin HCl (Cleocin) 300 mg TID PO Last administered on 01/04/17 16:08; Start 12/26/16 at 21:00; Stop 01/04/17 at 20:59 Clonazepam (KlonoPIN) 1 mg BID PO Last administered on 01/01/17 09:08; Start 12/31/16 at 21:00; Stop 01/01/17 at 13:13; Status DC Clonazepam (KlonoPIN) 1 mg BID PO Last administered on 01/01/17 20:36; Start 01/01/17 at 21:00; Stop 01/01/17 at 22:00; Status DC Clonazepam (KlonoPIN) 1 mg DAILY PO Last administered on 01/03/17 09:44; Start 01/02/17 at 09:00; Stop 01/03/17 at 10:00; Status DC Clonazepam (KlonoPIN) 1 mg TID PO Last administered on 12/31/16 16:21; Start 12/30/16 at 16:00; Stop 12/31/16 at 19:52; Status DC Clonazepam (KlonoPIN) 2 mg TID PO Last administered on 12/30/16 08:13; Start 12/24/16 at 16:00; Stop 12/30/16 at 14:06; Status DC Divalproex Sodium (Depakote Er) 500 mg BID PO Last administered on 01/01/17 09 :08; Start 12/26/16 at 09:00; Stop 01/01/17 at 10:53; Status DC Divalproex Sodium (Depakote Er) 750 mg BID PO Last administered on 01/04/17 09: 33; Start 01/01/17 at 21:00; Stop 01/31/17 at 20:59 Gabapentin (Neurontin) 100 mg QHS PO ; Start 12/23/16 at 21:00; Stop 12/24/16 at 12:58; Status DC Haloperidol (Haldol) 2 mg Q4HP PRN PO AGITATION Last administered on 12/24/16 09:09; Start 12/23/16 at 23:30; Stop 12/24/16 at 12:58; Status DC Home Med (Med Rec Complete!) ASDIRECTED XX ; Start 12/23/16 at 23:45; Stop at 23:52; Status DC Ibuprofen (Advil) 600 mg Q6HP PRN PO PAIN OR DISCOMFORT Last administered on 16:06; Start 12/26/16 at 13:45; Stop 01/25/17 at 13:44 Magnesium Hydroxide (Milk Of Magnesia) 30 ml DAILYPRN PRN PO CONSTIPATION; Start 12/23/16 at 23:30; Stop 01/22/17 at 23:29 Mirtazapine (Remeron Soltab) 15 mg QHS PO Last administered on 01/03/17 20: 45; Start 12/24/16 at 21:00; Stop 01/23/17 at 20:59 Nicotine (Nicoderm Cq 21mg) 1 patch DAILY TD Last administered on 01/04/17 09: 33; Start 12/24/16 at 09:00; Stop 01/23/17 at 08:59 Paliperidone (Invega) 3 mg QHS PO ; Start 12/23/16 at 21:00; Stop 12/24/16 at 12 :58; Status DC Paliperidone (Invega) 6 mg QHS PO Last administered on 12/29/16 20:36; Start 12/24/16 at 21:00; Stop 12/29/16 at 21:13; Status DC Paliperidone (Invega) 9 mg QHS PO Last administered on 01/03/17 20:44; Start at 21:00; Stop 01/29/17 at 20:59 Quetiapine Fumarate (SEROquel) 50 mg Q6HP PRN PO agitation Last administered on 01/04/17 16:08; Start 12/30/16 at 03:30; Stop 01/29/17 at 03:29 Trazodone HCl (Desyrel) 100 mg QHSP PRN PO INSOMNIA; Start 12/23/16 at 23:30; Stop 12/24/16 at 12:58; Status DC Trazodone HCl (Desyrel) 200 mg QHSP PRN PO INSOMNIA; Start 12/24/16 at 13:00; Stop 01/23/17 at 12:59; Status Cancel Allergies Coded Allergies: Bee Venom (Verified Allergy, Severe, SOB, 01/06/13) No Known Drug Allergy (Verified Allergy, Unknown, 01/06/13) Awilda Holloway Jan 04, 2017 19:36
[2017-01-04] MEDS: PALIPERIDONE 3 MG ER TAB (INVEGA) PO SCH (20:33)
[2017-01-04] MEDS: MIRTAZAPINE 15 MG ***SOLTAB PO SCH (20:34)
[2017-01-05 06:08] VITALS: BP 138/69
[2017-01-05] MEDS: DIVALPROEX 250MG *ER* TAB PO SCH (08:58)
[2017-01-05] MEDS: NICOTINE 21MG/24HR 1 EA TRANSDERMAL TD SCH (08:59)
[2017-01-05] MEDS ORDERED: PALI1TAB4 PO (09:30)
[2017-01-05] MEDS ORDERED: DEPA250T2 PO (09:30)
[2017-01-05] MEDS ORDERED: QUET5TAB PO (09:30)
[2017-01-05] MEDS ORDERED: MIRT15SOTA PO (09:30)
[2017-01-05] MEDS ORDERED: INVE9TAB PO (09:33)
[2017-01-05] MEDS ORDERED: NICO21PAT TD (10:17)
[2017-01-05] MEDS ORDERED: REME15TA PO ×2 (11:08→11:10)
[2017-01-05] MEDS ORDERED: DEPA250T32 PO ×2 (11:31→11:33)
--- NOTE | 2017-01-05 12:38 | DS.PDOC ---
[facility] Discharge Summary Discharge Summary DATE OF ADMISSION: Dec 23, 2016 at 23:19 DATE OF DISCHARGE: Jan 05, 2017 at 12:10 HISTORY: This 36-year-old female states "I have super highs and lows daily, I am bipolar, I am on everything except antidepressants." The patient has had numerous psychiatric admissions in 2011, 2012, 2013, 2015, and October of 2016. 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 She states her anxiety is very high and she does not know what to do. Outpatient care is at [facility], treated by Noble a nurse practitioner. The patient states she has been out of control for the last five years. The patient states she is unable to sleep. In her past, she states she has been on everything regarding medications. She states she was well for two years with Effexor and then it stopped working. Since October 2016, she has had some success with Invega. She said trazodone did help her with sleep but quit. She is not hearing voices. She is taking Haldol for anxiety. She says she becomes shaky, her heart racing and her head spinning, and the Haldol has not helped her. In the past, she has used Effexor, gabapentin, and Klonopin. MEDICAL HISTORY: Update lab results ordered and have been evaluated by NILDA and patient has been cleared for discharge. Labs on admission indicated elevated WBCs which were within normal limits on recheck, and glucose, low AST and anion gap. Patient has surgical history of tubal ligation and UDS positive for cannabinoids on admission HCG negative on admission EKG SINUS TACHYCARDIA NO CHANGE 09/13/14 BUT FOR FASTER HR, PA aware. Depakote level 12/31/16 62.6 Depakote level on 01/04/17 72.0 FAMILY HISTORY: Mother and Father have Bipolar Disorder. shot and killed self 5-6 years ago. Pt. has 6 yo child who lives with paternal GM. Pt has 3 sisters, one who is diagnosed bipolar and one who has alcohol difficulties. 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 She was going to school to be an advocate but "I can't help people because I can't help myself." Patient is a high school graduate and has completed some college. SUBSTANCE ABUSE HISTORY: Patient states she was an alcoholic seven years ago for one year. At that time, she went into rehabilitation for 28 days. LEGAL HISTORY: Patient denies TREATMENT PROGRESS ON UNIT: Patient initially struggled to adjust to unit, but was over time able to adjust well, participate effectively in unit programming, and engage appropriately with staff and peers. Patient made multiple demands for medications including increase in benzodiazepine and was resistant to taper which she eventually successfully completed, indicating at discharge she was relieved to have discontinued benzodiazepine medication. During patient's stay Invega was increased, mirtazapine and Depakote were initiated, and patient was provided with low-dose Seroquel to be used as needed for anxiety/agitation. Patient has denied need for gabapentin and has completed Klonopin taper, denies symptoms of craving or withdrawal. Patient indicates current medication regimen is effective, denies medication side effects, and she denies symptoms of irritability, agitation, impulsivity, and mood lability. During stay patient briefly experienced edema to lower legs, was evaluated and treated by PA and symptoms were resolved and were reportedly secondary to increased ibuprofen use. Patient refused follow-up lab work, was instructed to pursue lab work with outpatient provider within one week of discharge and was instructed to monitor carefully for potential side effects, patient verbalized understanding. [employer] was informed at time of discharge that Depakote ER would not be approved by insurance company. Prescription for Depakote was entered and then editorial writer was informed that insurance company would approve Depakote ER. Another call placed to pharmacy and, in effort to avoid prescription confusion, medication change was made by pharmacist, Zina, over the phone. Patient was also made aware that insurance company would not cover mirtazapine SolTab and the prescription had been changed to tablet. Patient was fully apprised of potential side effects related to medications and was instructed to seek medical attention should she experience medication side effects or symptoms of toxicity, patient verbalized understanding. Patient indicated she remains interested in pursuing Invega Sustenna, stated she will pursue once connected with her outpatient provider. Patient also verbalized understanding of recommended plan to taper to antipsychotic monotherapy once connected with outpatient provider. Patient denies symptoms of anxiety and depression, denies audiovisual hallucinations, denies suicidal and homicidal ideation and denies urge to engage in self- injurious behavior. Patient is able to verbalize concrete strategies for mitigating previously experienced symptoms should they return. Patient is requesting discharge to home today with boyfriend and family meeting has been completed. Patient has consistently declined to sign an HERON for AOT. Patient is aware she will be receiving outpatient psychotherapy and medication management services through [facility] with a psychotherapy appointment scheduled for 2:00 this afternoon, a [facility] case management appointment scheduled for tomorrow, and a [facility] appointment scheduled for . Patient verbalizes understanding of and agreement with discharge plan. MENTAL STATUS EXAMINATION ON DISCHARGE: Patient is a 36-year-old female who presents with adequate personal hygiene, makes good eye contact, is easily engaged, ambulates with steady gait, appears stated age. Speech: Is of normal rate, rhythm, volume, coherent, spontaneous Language skills are intact. Thought processes including: Clear, goal-directed. Thought content: Rational and logical, denies audiovisual hallucinations, denies suicidal and homicidal ideation, no paranoia or delusional thinking, no symptoms of psychosis noted or reported, does not appear to be responding to internal stimuli Abstract reasoning: Appears intact Description of associations: Intact Description of abnormal or psychotic thoughts: denies audiovisual hallucinations and indicates she has not experienced "for several days," does not exhibit delusional thinking, denies current homicidal or suicidal ideation, and obsessions, does not appear to be preoccupied Judgment: Adequate, has improved during treatment Insight: Adequate, has improved during treatment Orientation to time, place and person. Recent and remote memory: Appears intact. Attention span and concentration: Adequate Language: Normal. Fund of knowledge: Appears adequate. Mood: "I'm feeling much better, no depression and I'm ready to go home." Patient denies depression and anxiety, no mood lability noted. Affect: Full range, brightens frequently and appropriately, congruent with mood CONDITION ON DISCHARGE: Stable, no suicidal or homicidal ideation DIAGNOSES ON DISCHARGE: Bipolar disorder, mixed, cannabis use disorder, rule out PTSD, history of polysubstance use disorder Review of EMR indicated diagnoses from previous hospital admissions to include: Adjustment disorder, borderline personality traits, antisocial personality traits, multiple personality traits, rule out secondary gain/malingering. MEDICATIONS ON DISCHARGE: See below FOLLOW UP PLAN: Continue Invega 9 mg po q hs, Depakote ER 750 mg po BID, Seroquel 50 mg po q 6 hours PRN agitation, and mirtazapine 15 mg po q hs. Patient is aware she will require follow-up labs, as been advised to complete within a week of discharge Patient to discharge to home today and be transported by boyfriend Patient to participate in outpatient psychotherapy and medication management services through [facility], as therapy appointment scheduled for 2:00 this afternoon , case management appointment scheduled for tomorrow, and [facility] appointment scheduled for Patient to follow up with PCM within 5-7 days of discharge TIME SPENT COORDINATING CARE: 45 minutes Vital Signs/I&Os Vital Signs Date Time Temp Pulse Resp B/P Pulse Ox O2 Delivery O2 Flow Rate FiO2 01/05/17 06:08 97.6 78 18 138/69 Room Air Medications Scheduled Divalproex Sodium (Depakote) 250 Mg Tab #42 750 MG PO BID mood stabilization Mirtazapine (Remeron) 15 Mg Tab #7 15 MG PO QHS insomnia Nicotine (Nicotine Transdermal Syst) 21 Mg/24 Hr Dis #14 1 PATCH TD DAILY SMOKING CESSATION Paliperidone (Invega) 9 Mg Tab #7 9 MG PO QHS MOOD Scheduled PRN Quetiapine Fumerate (Quetiapine Fumarate) 50 Mg Tab #7 50 MG PO Q6HP PRN PRN anxiety/agitation Allergies Coded Allergies: Bee Venom (Verified Allergy, Severe, SOB, 01/06/13) No Known Drug Allergy (Verified Allergy, Unknown, 01/06/13) Awilda Holloway Jan 05, 2017 12:38 withdrawal, indicates PRN Seroquel is effective when needed. Patient denies current suicidal and homicidal ideation and agrees to alert staff if symptoms return, further denies urge to engage in self-injurious behavior. Patient is able to agree to alert staff if symptoms of anxiety and depression become unmanageable, or if suicidal ideation/SIB reemerges. Will continue to monitor patient's response to medication and monitor connection between edema in psychotropic medication regimen. Will also monitor for medication side effects and will evaluate patient safety, resolution of suicidal ideation, and discharge readiness. Patient states she remains interested in Invega Sustenna, notes she wants to pursue with outpatient provider once further stabilized on medications. Patient is requesting discharge, is aware discharge may occur tomorrow if she is stable on medications with no side effects. Lab work has been ordered by NILDA for evaluation purposes. Patient reiterates she plans to return home when prepared for discharge and environmental services coordinator indicates that patient has appointment with [facility] therapist tomorrow afternoon at 14:00 and has appointment with [facility] on at 13:00. Patient continues to refuse to sign an HERON for AOT. MANAGEMENT PLAN: Continue Invega 9 mg po q hs, Depakote ER 750 mg po BID, Seroquel 50 mg po q 6 hours PRN agitation, and mirtazapine 15 mg po q hs. Follow-up with PA in morning regarding lower extremity edema Maintain safety precautions Patient to attend groups and participate in unit programming to develop coping strategies Engage patient in discharge planning process and arrange meeting with support system to ensure safe discharge planning when appropriate Patient to follow up with PCM upon discharge IMPRESSION: Bipolar disorder, mixed type. Vital Signs/I&Os Vital Signs Date Time Temp Pulse Resp B/P Pulse Ox O2 Delivery O2 Flow Rate FiO2 01/05/17 06:08 97.6 78 18 138/69 Room Air Medications Scheduled Divalproex Sodium (Depakote) 250 Mg Tab #42 750 MG PO BID mood stabilization Mirtazapine (Remeron) 15 Mg Tab #7 15 MG PO QHS insomnia Nicotine (Nicotine Transdermal Syst) 21 Mg/24 Hr Dis #14 1 PATCH TD DAILY SMOKING CESSATION Paliperidone (Invega) 9 Mg Tab #7 9 MG PO QHS MOOD Scheduled PRN Quetiapine Fumerate (Quetiapine Fumarate) 50 Mg Tab #7 50 MG PO Q6HP PRN PRN anxiety/agitation Allergies Coded Allergies: Bee Venom (Verified Allergy, Severe, SOB, 01/06/13) No Known Drug Allergy (Verified Allergy, Unknown, 01/06/13) Awilda Holloway Jan 05, 2017 12:38
== END 2017-01-05 12:10 | disposition home or self-care (01) | DRG 753 ==
LOC: M ED 18:36 → M ED INP 23:19 → M PSY 12-24 04:24
PROVIDERS: ADMIT Psychiatry & Neurology Psychiatry; ATTEND Psychiatry & Neurology Child & Adolescent Psychiatry
DX: F31.60 Bipolar disorder, current episode mixed, unspecified (principal); F17.200 Nicotine dependence, unspecified, uncomplicated; F12.90 Cannabis use, unspecified, uncomplicated; F43.10 Post-traumatic stress disorder, unspecified; Z79.899 Other long term (current) drug therapy; Z91.038 Other insect allergy status; K04.7 Periapical abscess without sinus

== ENCOUNTER 2017-04-27 16:45 | Inpatient (IN) | payer MEDICAID, OTHER, SELFPAY ==
[~2017-04-27] VITALS: Ht 160 cm; Wt 109.4 kg
[~2017-04-27 16:45] MED LIST changes: +DEPA250T2 PO; +DEPA250T32 PO; +INVE9TAB PO; +MIRT15SOTA PO; +PALI1TAB4 PO; +QUET5TAB PO; +REME15TA PO; -RISP1TAB41 PO; +RISP1TAB42 PO; -RISP2TAB30 PO; +RISP2TAB32 PO; +TRAZ-136 PO
[2017-04-27] MEDS ORDERED: TRAZ-136 (17:08)
[2017-04-27] MEDS ORDERED: PALI1TAB2 (17:08)
[2017-04-27] MEDS ORDERED: NICOTINE 21MG/24HR 1 EA TRANSDERMAL TD ONE (17:45)
[2017-04-27 17:51] LABS: MEAN CORPUSCULAR HEMOGLOBIN 30.9 pg (27.0-33.0); MEAN CORPUSCULAR HGB CONC 33.7 g/dl (32.0-36.5); MEAN CORPUSCULAR VOLUME 91.8 fl (80.0-96.0); RED CELL DISTRIBUTION WIDTH 13.5 % (11.5-14.5); WHITE BLOOD COUNT 14.4 K/mm3 (4.0-10.0)
[2017-04-27 17:54] LABS: CONTROL LINE HCG INT CTR LINE PRESENT
[2017-04-27 18:16] LABS: ALBUMIN 4.2 GM/DL (3.2-5.2); ALBUMIN/GLOBULIN RATIO 1.35 (1.00-1.93); ALKALINE PHOSPHATASE 84 U/L (45-117); ALT/SGPT 27 U/L (12-78); ANION GAP 10 MEQ/L (8-16); AST/SGOT 15 U/L (15-37); BILIRUBIN,DIRECT < 0.1 MG/DL (0.0-0.2); BILIRUBIN,TOTAL 0.3 MG/DL (0.2-1.0); BLOOD UREA NITROGEN 11 MG/DL (7-18); CALCIUM LEVEL 10.6 MG/DL (8.5-10.1); CARBON DIOXIDE LEVEL 21 MEQ/L (21-32); CHLORIDE LEVEL 102 MEQ/L (98-107); CREATININE FOR GFR 0.78 MG/DL (0.55-1.02); GLOMERULAR FILTRATION RATE > 60.0 (>60); GLUCOSE, FASTING 94 MG/DL (70-105); POTASSIUM SERUM 3.9 MEQ/L (3.5-5.1); SODIUM LEVEL 133 MEQ/L (136-145); TOTAL PROTEIN 7.3 GM/DL (6.4-8.2)
[2017-04-27 18:23] LABS: METHADONE URINE NEGATIVE (NEGATIVE)
[2017-04-27] MEDS ORDERED: LORazepam 1 MG TAB PO STA (19:08)
[2017-04-27] MEDS ORDERED: INVE3TAB2 PO (19:48)
[2017-04-27] MEDS ORDERED: ALEV220T26 PO (19:50)
[2017-04-27] MEDS ORDERED: GABA-279 PO (19:50)
[2017-04-27] MEDS ORDERED: TUMS500C PO (19:50)
[2017-04-27] MEDS ORDERED: PALI1TAB2 PO (19:50)
[2017-04-27] MEDS ORDERED: TRAZ-136 PO (19:50)
[2017-04-27 22:02] VITALS: BP 148/98
[2017-04-27] MEDS ORDERED: ACETAMINOPHEN TAB 650MG DOSE (2X325MG) PO PRN (23:00)
[2017-04-27] MEDS ORDERED: MOM 30ML SUSPENSION UDC PO PRN (23:00)
[2017-04-27] MEDS ORDERED: MAALOX 30 ML SUSP *UDC PO PRN (23:00)
[2017-04-27] MEDS ORDERED: CALCIUM CARBONATE 500 MG CHEW U/D PO PRN (23:00)
[2017-04-27] MEDS ORDERED: NAPROXEN 250 MG TAB PO PRN (23:00)
[2017-04-27] MEDS: GABAPENTIN 100 MG CAP PO SCH (23:04)
[2017-04-27] MEDS: traZODone 100 MG TAB PO SCH (23:04)
[2017-04-27] MEDS: PALIPERIDONE 3 MG ER TAB (INVEGA) PO SCH (23:04)
[2017-04-28 06:46] VITALS: BP 128/81
--- NOTE | 2017-04-28 09:04 | HPEPDOC ---
Medical History and Physical Date of Admission Apr 27, 2017 at 20:56 History and Physical PCP: Luba Trujillo PROGRAM MANAGER. ATTENDING: Dr. Yoan Sims HPI: 37yoF admitted to [facility] for unspecified depressive disorder, being medically examined today. States she is feeling anxious currently. Denies any fevers, chills, weakness, fatigue, SANTANA, CP, SOB, cough, palpitations, abdominal pain, N/V/D or changes in bowel or bladder habits. PMHx: PTSD Anxiety/depression Bipolar disorder Dissociative disorder History of substance use History of alcohol use PSHX: Tubal ligation SOCHX: Resides in: [place] Marital Status: (suicide-previous ). Currently engaged. Kids: 6 children, 3 children live with family members. 3 children in [place]. Employment: Unemployed Tobacco use: One pack per day ETOH: States no alcohol for the past 2 years, previously completed rehabilitation program Illicit Drugs: History of opiates. States currently uses marijuana "frequently, I don't, the days". IV Drug Use: Denies Tattoos done unprofessionally: Denies FAMHX: Mother: Alive, patient states history of mental illness Father: Alive, patient states history of bipolar disorder Siblings: Alive, patient states 2 sisters history of bipolar disorder Children: 3 children Alive, well, living with other family members. Unexpected deaths due to medical reasons: None. ROS: As noted in HPI, otherwise 11pt ROS of systems reviewed and remarkable only for LMP unknown. PE: GEN: 37yoF, appears stated age. Well-nourished, well developed. Anxious during exam, teary. Alert and oriented x 3. HEENT: Normocephalic, atraumatic. Pupils are equal, round, and reactive to light. Extraocular movements are intact. No nystagmus appreciated. Sclera are nonicteric. Conjunctiva without injection. Nose midline. Nasal turbinates without bogginess. EACs both patent BL. TMs both visualized and bowers with good cone of light, no bulging or erythema. No facial asymmetry. Moist mucous membranes. Dentition fair. Pharynx pink and moist, no cobblestoning. Neck supple , trachea midline. No lymphadenopathy or thyromegaly appreciated. CHEST: Regular rate and rhythm, +S1, +S2 LUNGS: Clear to auscultation bilaterally. No wheezes, rales, or rhonchi. Breathing appears symmetric and easy. Patient is speaking in full sentences. No accessory muscle use. ABD: Round, soft, non-tender, non-distended. +Bowel sounds throughout. No rebound or guarding. No costovertebral angle tenderness. EXT: Pulses 2+ bilaterally dorsalis pedis and radial. No lower extremity edema appreciated. SKIN: [place], dry, warm. Capillary refill <2sec. No rashes. No drainage. No erythema. NEURO: Alert and oriented x 3. Cranial nerves III-XII are intact. No focal deficits appreciated. EKG pending. A&P: 36yoF admitted to [facility] for MDD 1. Psych. Plan per Psychiatry. EKG pending. 2. Nicotine dependence. Patch available. 3. Follow up with PCP on discharge. 4. Substance use. Per psychiatry 5. Leukocytosis. Patient asymptomatic. Afebrile. Likely stress response. Recheck CBC in a.m. 6. Hyponatremia. Recheck CMP in a.m. 7. Staff member Shari present throughout exam. Vital Signs Vital Signs Date Time Temp Pulse Resp B/P (MAP) Pulse Ox O2 Delivery O2 Flow Rate FiO2 04/28/17 06:46 98.2 72 18 128/81 (97) 04/27/17 21:42 100 Room Air Laboratory Data Labs 24H Laboratory Tests 2 04/27/17 17:20: Anion Gap 10, Glomerular Filtration Rate > 60.0, Calcium Level 10.6H, Aspartate Amino Transf (AST/SGOT) 15, Alanine Aminotransferase (ALT/SGPT) 27, Alkaline Phosphatase 84, Total Bilirubin 0.3, Direct Bilirubin < 0.1, Total Protein 7.3, Albumin 4.2, Albumin/Globulin Ratio 1.35, Thyroid Stimulating Hormone (TSH) 2.310, Human Chorionic Gonadotropin, Qual NEGATIVE, Salicylates Level 3.4L, Acetaminophen Level < 2.0L, Ethyl Alcohol Level < 0.003 04/27/17 17:44: Urine Amphetamines Screen NEGATIVE, Urine Benzodiazepines Screen POSITIVEH, Urine Opiates Screen NEGATIVE, Urine Methadone Screen NEGATIVE, Urine Barbiturates Screen NEGATIVE, Urine Phencyclidine Screen NEGATIVE, Urine Cocaine Metabolite Screen NEGATIVE, Urine Cannabinoids Screen POSITIVEH CBC/BMP Laboratory Tests 04/27/17 17:20 Red Blood Count 4.92, Mean Corpuscular Volume 91.8, Mean Corpuscular Hemoglobin 30.9, Mean Corpuscular Hemoglobin Concent 33.7, Red Cell Distribution Width 13.5 Home Medications Scheduled Gabapentin (Gabapentin) 100 Mg Cap, 100 MG PO BID Paliperidone (Paliperidone ER) 3 Mg Tab, 3 MG PO QHS Trazodone HCl (Trazodone HCl) 100 Mg Tab, 100 MG PO QHS Scheduled PRN Calcium Carbonate (Tums) 500 Mg Chw, 500 MG PO PRN PRN for HEARTBURN/INDIGESTION Naproxen Sodium (Aleve) 220 Mg Tab, 440 MG PO BID PRN for PAIN Allergies Coded Allergies: Bee Venom (Verified Allergy, Severe, SOB, 01/06/13) No Known Drug Allergy (Verified Allergy, Unknown, 01/06/13) Alba Flaherty Apr 28, 2017 09:04
[2017-04-28] MEDS: NICOTINE 21MG/24HR 1 EA TRANSDERMAL TD SCH (09:42)
[2017-04-28] MEDS: GABAPENTIN 100 MG CAP PO SCH ×3 (09:42→20:12)
[2017-04-28] MEDS ORDERED: hydrOXYzine 50 MG TAB PO PRN (10:45)
[2017-04-28 11:38] VITALS: BP 156/90
[2017-04-28] MEDS ORDERED: LORazepam 1 MG TAB PO STA (12:50)
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
[2017-04-28] MEDS: OLANZapine 5 MG TAB PO PRN (17:41)
[2017-04-28 18:26] VITALS: BP 126/74
[2017-04-28] MEDS: PALIPERIDONE 3 MG ER TAB (INVEGA) PO SCH (20:13)
[2017-04-28] MEDS: traZODone 100 MG TAB PO SCH (21:07)
[2017-04-29] MEDS: NICOTINE 21MG/24HR 1 EA TRANSDERMAL TD SCH (09:19)
[2017-04-29] MEDS: GABAPENTIN 100 MG CAP PO SCH (09:19)
[2017-04-29] MEDS: OLANZapine 5 MG TAB PO PRN ×3 (09:19→22:31)
[2017-04-29 12:20] LABS: MEAN CORPUSCULAR HEMOGLOBIN 30.9 pg (27.0-33.0); MEAN CORPUSCULAR HGB CONC 33.6 g/dl (32.0-36.5); MEAN CORPUSCULAR VOLUME 91.9 fl (80.0-96.0); RED CELL DISTRIBUTION WIDTH 13.2 % (11.5-14.5); WHITE BLOOD COUNT 8.6 K/mm3 (4.0-10.0)
[2017-04-29 12:47] LABS: ALBUMIN 3.4 GM/DL (3.2-5.2); ALBUMIN/GLOBULIN RATIO 0.97 (1.00-1.93); ALKALINE PHOSPHATASE 69 U/L (45-117); ALT/SGPT 24 U/L (12-78); ANION GAP 8 MEQ/L (8-16); AST/SGOT 8 U/L (15-37); BILIRUBIN,TOTAL 0.2 MG/DL (0.2-1.0); BLOOD UREA NITROGEN 13 MG/DL (7-18); CALCIUM LEVEL 9.5 MG/DL (8.5-10.1); CARBON DIOXIDE LEVEL 25 MEQ/L (21-32); CHLORIDE LEVEL 102 MEQ/L (98-107); CREATININE FOR GFR 0.71 MG/DL (0.55-1.02); GLOMERULAR FILTRATION RATE > 60.0 (>60); GLUCOSE, FASTING 92 MG/DL (70-105); POTASSIUM SERUM 4.3 MEQ/L (3.5-5.1); SODIUM LEVEL 135 MEQ/L (136-145); TOTAL PROTEIN 6.9 GM/DL (6.4-8.2)
--- NOTE | 2017-04-29 16:08 | MHIPNPDOC ---
[facility] Progress Note Progress Note DATE OF SERVICE: 04/29/17 HISTORY: Patient is a 37-year-old female with history of bipolar disorder, PTSD , borderline personality traits who was admitted for feeling suicidal due to problems with housing and with her significant other. Subjective: Patient reports feeling extremely agitated, not angry, but she says it is as a constant movement inside of her that she would like to Slow down or stop. Patient reports trouble sleeping,, high anxiety levels, anxiety and depression, although she says the level of her depression is not high. Denies active suicidal or homicidal ideation, denies thought delusions and denies auditory and visual hallucinations. Admits to have fleeting suicidal ideation Objective: Patient is alert, oriented 3, cooperative with interview, anxious, with good eye contact and will rapport. Her speech is coherent, fluent and spontaneous. Her thought process is intact. Her thought content is anxious and full of worries. Denies active suicidal ideation, denies homicidal ideation, denies auditory and visual hallucinations and denies thought delusions but reports passive suicidal ideation. She reports feelings of helplessness, hopelessness. Her attention span and concentration are good, her memory is intact, she is oriented 3, and her fund of knowledge is adequate, her mood and affect are anxious. Her insight and judgment are limited. Her impulse control has been fair. Assessment: Bipolar disorder, mixed episode PTSD Borderline personality traits Management: Gabapentin has been discontinued and instead patient will be taking Seroquel 200 mg by mouth twice a day and 100 mg by mouth daily at bedtime. Paliperidone has been increased to 6 mg by mouth daily at bedtime. Trazodone has been discontinued. Patient is being encouraged to attend groups to learn coping skills that she needs to deal with her psychosocial stressors. Patient is to continue hospitalization for further stabilization. Will monitor and follow-up closely. Vital Signs Vital Signs Date Time Temp Pulse Resp B/P (MAP) Pulse Ox O2 Delivery O2 Flow Rate FiO2 04/28/17 18:26 98.7 73 16 126/74 (91) 04/27/17 21:42 100 Room Air Laboratory Data 24H Labs Laboratory Tests 2 04/29/17 12:02: Anion Gap 8, Glomerular Filtration Rate > 60.0, Blood Urea Nitrogen 13, Creatinine 0.71, Sodium Level 135L, Potassium Level 4.3, Chloride Level 102, Carbon Dioxide Level 25, Calcium Level 9.5, Aspartate Amino Transf (AST/SGOT) 8L , Alanine Aminotransferase (ALT/SGPT) 24, Alkaline Phosphatase 69, Total Bilirubin 0.2, Total Protein 6.9, Albumin 3.4, Albumin/Globulin Ratio 0.97L CBC/BMP Laboratory Tests 04/29/17 12:02 Red Blood Count 4.60, Mean Corpuscular Volume 91.9, Mean Corpuscular Hemoglobin 30.9, Mean Corpuscular Hemoglobin Concent 33.6, Red Cell Distribution Width 13.2 , Calcium Level 9.5, Aspartate Amino Transf (AST/SGOT) 8 L, Alanine Aminotransferase (ALT/SGPT) 24, Alkaline Phosphatase 69, Total Bilirubin 0.2, Total Protein 6.9, Albumin 3.4 Current Medications Current Medications Acetaminophen (Tylenol Tab) 650 mg Q6HP PRN PO HEADACHE or DISCOMFORT; Start at 23:00; Stop 05/27/17 at 22:59 Al Hydrox/Mg Hydrox/Simethicone (Mylanta) 30 ml Q4HP PRN PO HEARTBURN/ INDIGESTION; Start 04/27/17 at 23:00; Stop 05/27/17 at 22:59 Calcium Carbonate (Tums) 500 mg Q4HP PRN PO HEARTBURN/INDIGESTION; Start at 23:00; Stop 05/27/17 at 22:59 Gabapentin (Neurontin) 100 mg BID PO Last administered on 04/28/17 09:42; Start 04/27/17 at 21:00; Stop 04/28/17 at 12:54; Status DC Gabapentin (Neurontin) 200 mg TID PO Last administered on 04/29/17 09:19; Start 04/28/17 at 16:00; Stop 04/29/17 at 15:33; Status DC Home Med (Med Rec Complete!) ASDIRECTED XX ; Start 04/27/17 at 20:00; Stop at 20:00; Status DC Hydroxyzine HCl (Atarax) 50 mg Q4HP PRN PO ANXIETY Last administered on 11:02; Start 04/28/17 at 10:45; Stop 04/28/17 at 12:54; Status DC Lorazepam (Ativan) 1 mg STAT STAT PO Last administered on 04/27/17 19:16; Start 04/27/17 at 19:08; Stop 04/27/17 at 19:09; Status DC Lorazepam (Ativan) 2 mg STAT STAT PO Last administered on 04/28/17 13:09; Start 04/28/17 at 12:50; Stop 04/28/17 at 12:54; Status DC Magnesium Hydroxide (Milk Of Magnesia) 30 ml DAILYPRN PRN PO CONSTIPATION; Start 04/27/17 at 23:00; Stop 05/27/17 at 22:59 Naproxen (Naprosyn) 500 mg BIDP PRN PO PAIN Last administered on 04/28/17 05: 59; Start 04/27/17 at 23:00; Stop 05/27/17 at 22:59 Nicotine (Nicoderm Cq 21mg) 1 patch DAILY TD Last administered on 04/29/17 09: 19; Start 04/28/17 at 09:00; Stop 05/28/17 at 08:59 Olanzapine (ZyPREXA) 5 mg Q4HP PRN PO ANXIETY/AGITATION Last administered on 13:29; Start 04/28/17 at 13:00; Stop 05/28/17 at 12:59 Paliperidone (Invega) 3 mg QHS PO Last administered on 04/28/17 20:13; Start 04/27/17 at 21:00; Stop 04/29/17 at 15:27; Status DC Paliperidone (Invega) 6 mg QHS PO ; Start 04/29/17 at 21:00; Stop 05/29/17 at 20 :59 Quetiapine Fumarate (SEROquel) 100 mg QHS PO ; Start 04/29/17 at 21:00; Stop at 20:59 Quetiapine Fumarate (SEROquel) 200 mg BID PO ; Start 04/29/17 at 21:00; Stop at 20:59 Trazodone HCl (Desyrel) 100 mg QHS PO Last administered on 04/28/17 21:07; Start 04/27/17 at 21:00; Stop 04/29/17 at 15:35; Status DC Allergies Coded Allergies: Bee Venom (Verified Allergy, Severe, SOB, 4/5/13) No Known Drug Allergy (Verified Allergy, Unknown, 01/06/13) YNES KATE MD Apr 29, 2017 16:08
[2017-04-29 18:00] VITALS: BP 144/90
[2017-04-29] MEDS ORDERED: QUEtiapine FUMARATE 100 MG TAB PO SCH (21:00)
[2017-04-29] MEDS: QUEtiapine FUMARATE 200 MG TAB PO SCH (21:09)
[2017-04-29] MEDS: PALIPERIDONE 6 MG ER TAB (INVEGA) PO SCH (21:09)
[2017-04-29] MEDS ORDERED: LORazepam 2 MG TAB PO ONE (23:45)
[2017-04-30 06:29] VITALS: BP 132/79
[2017-04-30] MEDS: OLANZapine 5 MG TAB PO PRN ×2 (06:40→13:34)
[2017-04-30] MEDS: NICOTINE 21MG/24HR 1 EA TRANSDERMAL TD SCH (08:54)
[2017-04-30] MEDS: QUEtiapine FUMARATE 200 MG TAB PO SCH ×2 (08:54→21:48)
[2017-04-30 16:09] VITALS: BP 170/90
[2017-04-30 16:24] VITALS: BP 170/90
[2017-04-30] MEDS ORDERED: cloNIDine 0.1 MG TAB PO ONE (16:30)
[2017-04-30 18:00] VITALS: BP 150/90
[2017-04-30] MEDS: PALIPERIDONE 6 MG ER TAB (INVEGA) PO SCH (21:48)
[2017-04-30] MEDS: MIRTAZAPINE 15 MG TAB PO SCH (21:49)
[2017-05-01 06:35] VITALS: BP 131/66
[2017-05-01] MEDS: NICOTINE 21MG/24HR 1 EA TRANSDERMAL TD SCH (09:40)
[2017-05-01] MEDS: QUEtiapine FUMARATE 200 MG TAB PO SCH ×4 (09:40→22:04)
[2017-05-01] MEDS: OLANZapine 5 MG TAB PO PRN (14:36)
[2017-05-01 18:15] VITALS: BP 118/60
[2017-05-01] MEDS: MIRTAZAPINE 15 MG TAB PO SCH (22:04)
[2017-05-01] MEDS: PALIPERIDONE 6 MG ER TAB (INVEGA) PO SCH (22:04)
[2017-05-02 06:05] VITALS: BP 133/80
[2017-05-02] MEDS: NICOTINE 21MG/24HR 1 EA TRANSDERMAL TD SCH (08:33)
[2017-05-02] MEDS: QUEtiapine FUMARATE 200 MG TAB PO SCH ×4 (08:33→21:01)
[2017-05-02] MEDS: OLANZapine 5 MG TAB PO PRN (16:02)
[2017-05-02 18:22] VITALS: BP 140/86
[2017-05-02] MEDS: PALIPERIDONE 6 MG ER TAB (INVEGA) PO SCH (21:01)
[2017-05-02] MEDS: MIRTAZAPINE 15 MG TAB PO SCH (21:02)
--- NOTE | 2017-05-02 21:16 | MHIPN ---
DATE: 04/30/2017 HISTORY: The patient is a 37-year-old female with a history of bipolar disorder, posttraumatic stress disorder (PTSD), borderline personality trait, who was admitted for feeling suicidal due to problems with housing and with her ex significant other. SUBJECTIVE: The patient has reported extreme anxiety because ex boyfriend has done a paternity test and has done a genetic testing on her 6-year-old child. The patient's son believes that he was conceived by the patient's ex , who committed suicide and has grown up with his siblings considering himself the brother of them. The patient reports that she is not sure if this boy is this man's son or her ex 's son and she is very worried about the results of the genetic testing, she does not know if this man has already gotten the results and has told her son that he is the biological father. She also reports feeling very anxious because she has problems with housing and her landlord wants her to leave. She reports having problems sleeping at night in spite of being heavily medicated. OBJECTIVE: The patient is alert, oriented times three, cooperative, extremely anxious, looks worried. Her thought process is intact. Her thought content is anxious about the above mentioned problems, her insight and judgment are limited, her impulse control is good. She denies homicidal ideation, denies suicidal ideation. Denies thought delusions and denies auditory and visual hallucinations. Her memory is intact. Abstract reasoning and computation are fair. Attention and concentration are limited because the patient is extremely anxious and for that reason she is easily distractible. DIAGNOSES: 1. Bipolar disorder. 2. Posttraumatic stress disorder (PTSD). 3. Borderline personality traits. MANAGEMENT PLAN: The patient will continue on paliperidone 6 mg by mouth at night. She will continue Seroquel 200 mg by mouth twice a day, but the 100 mg at bedtime will be discontinued. She will continue on olanzapine 5 mg by mouth every 4 hours as needed for anxiety and agitation. She will be started on mirtazapine 45 mg by mouth at night because she reported that she had a good response to this medication previously. The patient was given last night a one time dose of lorazepam because she was very stressed out and could not go to sleep. We will continue to make medication adjustments as necessary and we will monitor closely.
[2017-05-03 06:45] VITALS: BP 134/63
[2017-05-03] MEDS: NICOTINE 21MG/24HR 1 EA TRANSDERMAL TD SCH (08:57)
[2017-05-03] MEDS: QUEtiapine FUMARATE 200 MG TAB PO SCH ×2 (08:57→12:13)
[2017-05-03] MEDS ORDERED: MIRT15TA3 PO (10:50)
[2017-05-03] MEDS ORDERED: QUET1TAB9 PO (10:50)
[2017-05-03] MEDS ORDERED: PALI1TAB3 PO (10:50)
[2017-05-03] MEDS ORDERED: OLAN5TAB PO (10:51)
--- NOTE | 2017-05-03 11:00 | MHIPN ---
DATE OF SERVICE: ___05/01/17 37-year-old female admitted on 04/27/2017 for feeling suicidal and having urges to hurt, cut herself. Patient has reported a series of personal problems, including housing and a problem with one of her ex-partners who is wanting to prove that he is the father of her youngest child. This last event has got her much anxiety and ___anger, but she's angry at herself. . SUBJECTIVE: Patient reports that she has had problems sleeping, but say that last night she was able to sleep better, after her medications were adjusted and she used Remeron last night. She denies active suicidal ideation but reports that she has fleeting ideas of hurting herself, cutting and killing herself. She states that her anxiety level is still high, despite all the medications that she is receiving. She says that Zyprexa is not helping her much, it helps her relax but the effect disappears pretty soon. OBJECTIVE: Patient is alert, oriented times three with slurred speech, dressed in hospital clothes, cooperative, nonaggressive. Her speech is coherent. Her thought process is intact. Her thought content is anxious. She denies auditory and visual hallucinations, denies thought delusions and admits having once in awhile fleeting suicidal thoughts but says that these thoughts are not active suicidal thoughts. She denies homicidal ideation. Her memory is intact. Her attention and concentration are good. Her fund of knowledge is fair. She is oriented times three. Her insight and judgment are fair. Her impulse control has been good and is good. ASSESSMENT: 1. Bipolar disorder. 2. Borderline personality traits. Patient is responding to major psychosocial stressors in her life. She fears losing the love and respect from her 6-year-old child and her two older children. She fears being criticized by her [id number]. She fears being addictive. Patient has had severe history of trauma. She also carries the diagnosis of posttraumatic stress disorder (PTSD) and all this stress certainly has re- enacted the trauma that she suffered previously. Her anxiety levels are very high. She does not have flashbacks. She does not have nightmares but she has remembered many times when her ex- committed suicide in front of her and her children. Patient is still very unstable. She needs to improve. We need to lower her anxiety level in order to be able to discharge her. She is still at risk for suicide and at risk for self injury. MANAGEMENT PLAN: Will continue on the same medications, will encourage her to attend groups and will try to help her with her housing problems. Will monitor closely and will followup. CAR
--- NOTE | 2017-05-03 21:52 | MHDSPDOC ---
[facility] Discharge Summary Discharge Summary DATE OF ADMISSION: Apr 27, 2017 at 20:56 DATE OF DISCHARGE: May 03, 2017 at 12:20 DISCHARGE DIAGNOSES: 1. Bipolar disorder, mixed episode 2. PTSD 3.Borderline personality traits REASON FOR ADMISSION: Patient was admitted on April 27 after she expressed suicidal thoughts and reported increasing depression due to severe psychosocial problems that involve the custody of a child over a paternity claim from a person that once was part of her life and her 's . She is been harassed by her landlord, and she is facing eviction, although she has been paying her rent on time. CONSULTANTS INVOLVED: None TREATMENT AND PROGRESS ON THE UNIT : Patient was extremely anxious and didn't respond to gabapentin that had been used previously for anxiety, her response for zyprexa was poor, it wouldn't last long enough and she couldn't use ativan because she has a substance abuse problem. She had a good response to quetiapine 200 mgs. PO QID and zyprexa 5 mgs PO Q4hrs.prn. for agitation. She improved with Remeron 34 mgs. PO QHS, she was able to sleep and she couldn't do it before. her paliperidone was increased to 6 mgs PO QD HOSPITAL COURSE: She had a good response to treatment, attended groups and learned coping skills that she needs at this difficult time in her life. She has a supportive boyfriend, she is motivated to keep on leaving for her three children. Her anxiety and anger decreased with medications and therapy. DISCHARGE ASSESSMENT: Patient was not suicidal, not homicidal and not psychoti upon discharge. Was not a danger to self or others. MENTAL STATUS EXAMINATION ON DISCHARGE: Patient is a 37-year old female, who is alert, cooperative, engaging. Speech is Normal. Language skills are Fair. Thought processes including: Intact. Thought content: Coherent. Abstract reasoning, and computation: Fair. Description of associations: Good. Description of abnormal or psychotic thoughts: Patient was not delusional, didn' t respond to internal stimuli, denied suicidal or homicidal ideation. Judgment: Fair Insight: Fair. Orientation to Oriented x 3. Recent and remote memory: Intact. Attention span and concentration: Good. Language: Normal. Fund of knowledge: Fair. Mood: "I'm O.K., I'm less anxious, I can handle it". Affect: Euthymic. MEDICATIONS ON DISCHARGE: - Remeron 45 mgs PO QHS for insomnia. - Paliperidone 6 miligrams PO QD for psychosis/mood stabilization/bipolar depression - Quetiapine 200 mgs PO QID for mood stabilization -Zyprexa 5 mgs PO PRN Q4hrs for anxiety/agitation PLAN/FOLLOWUP ARRANGEMENTS: She will follow up at [facility] and [facility], where she will attend the [facility] clinic-[facility]. The amount of time spent in the coordination of care for this patient was approximately 45 minutes. Vital Signs/I&Os Vital Signs Date Time Temp Pulse Resp B/P (MAP) Pulse Ox O2 Delivery O2 Flow Rate FiO2 05/03/17 06:45 98.5 63 16 134/63 (86) 04/27/17 21:42 100 Room Air Medications Scheduled (Paliperidone ER) 6 Mg Tab, 6 MG PO QHS for MOOD, #7 Mirtazapine (Mirtazapine) 15 Mg Tab, 45 MG PO QHS for INSOMNIA, #21 Quetiapine Fumerate (Quetiapine Fumarate) 200 Mg Tab, 200 MG PO QID for MOOD, # 28 Scheduled PRN Calcium Carbonate (Tums) 500 Mg Chw, 500 MG PO PRN PRN for HEARTBURN/INDIGESTION , (Reported) Naproxen Sodium (Aleve) 220 Mg Tab, 440 MG PO BID PRN for PAIN, (Reported) Olanzapine (Olanzapine) 5 Mg Tab, 5 MG PO Q4HP PRN for ANXIETY/AGITATION, #10 Allergies Coded Allergies: Bee Venom (Verified Allergy, Severe, SOB, 01/06/13) No Known Drug Allergy (Verified Allergy, Unknown, 01/06/13) YNES KATE MD May 03, 2017 21:52
== END 2017-05-03 12:20 | disposition home or self-care (01) | DRG 753 ==
LOC: M ED 16:45 → M ED INP 20:56 → M PSY 21:45
PROVIDERS: ADMIT Psychiatry & Neurology Psychiatry; ATTEND Psychiatry & Neurology Psychiatry
DX: F31.60 Bipolar disorder, current episode mixed, unspecified (principal); E87.1 Hypo-osmolality and hyponatremia; R45.851 Suicidal ideations; F43.10 Post-traumatic stress disorder, unspecified; F60.3 Borderline personality disorder; Z91.030 Bee allergy status; Z79.899 Other long term (current) drug therapy; Z98.51 Tubal ligation status; F17.210 Nicotine dependence, cigarettes, uncomplicated; F10.21 Alcohol dependence, in remission; Z81.8 Family history of other mental and behavioral disorders